=== PATIENT | female | born 1985 | race Caucasian/White ===

== ENCOUNTER 2016-06-05 17:03 | Emergency (ER) | payer MEDICARE, MEDICAID ==
[~2016-06-05] VITALS: Ht 160 cm; Wt 165.5 kg
[~2016-06-05 17:03] MED LIST: ABILIFY 10MG TA10 MG PO; ABILIFY20 MG PO; ADIPEX-P37.5 MG PO; ALBUTEROL0.09 MG/A1 IH; ALBUTEROL0.83 MG/ML IH; AMITRIPTYLINE H25 M1 PO; AMOXICILLIN 50500 MG PO; ATARAX; ATARAX 25MG25 MG/TAB PO; BUSPAR DIVIDOSE15 MG PO; BUSPIRONE; CELEXA 20MG20 MG/TAB PO; CEPHALEXIN500 M1 PO; COZAAR100 MG PO; DESYREL 100MG100 MG PO; DESYREL 50MG50 MG PO; DESYREL DIVIDO150 M1 PO; DOXYCYCLINE 10100 MG PO; FIORICET 325 MG1 TA1 PO; FLEXERIL 1010 MG/TAB PO; FLEXERIL10 MG PO; FLONASEALLERGY NS; GEODON60 MG PO; GLUCOPHAGE500 MG/TAB PO; IMITREX 25MG TA25 MG PO; INDERAL 20MG20 MG PO; KLONOPIN 0.5MG0.5 MG PO; KLONOPIN 1MG1 MG PO; LAMICTAL; LAMICTAL 100MG100 MG PO; LAMICTAL 25MG T25 MG PO; LAMICTAL ODT200 MG TL; LAMICTAL200 MG PO; LAMOTRIGINE; LEVAQUIN 750MG750 M1 PO; LORTAB 5/500 501 TAB PO; LORTAB 7.5/5001 TAB PO; MAXALT MLT5 MG PO; MAXALT5 MG PO; MIRALAX 255 GM255 GM PO; MOTRIN 800800 MG/TAB PO; NAPROSYN500 MG PO; NAPROXEN ER500 MG PO; NEURONTIN800 MG/TAB PO; NO HOME MEDICATIONS; NORCO 325 MG-51 TAB; NORCO 325 MG-51 TAB PO; NORCO 325 MG-7.1 TAB PO; PAMELOR 25MG25 MG PO; PAMELOR PO; PEPCID 20MG TAB20 MG; PERCOCET 325 MG1 TA2 PO; PERCOCET 5/321 UDTAB PO; PHENERGAN 25 TA25 MG PO; PHENTRAMINE; PREDNISONE 5MG5 MG PO; PREDNISONE10 MG PO; PREDNISONE20 MG PO; PRINIVIL10 MG PO; PRINZIDE 12.5 M1 TA1 PO; PRINZIDE 12.5 M1 TAB PO; PROMETHAZINE12.5 M5 PO; PROVENTIL0.09 MG/A1 IH; RANITIDINE 7575 MG PO; REGLAN 10MG10 MG/TAB PO; RELION VEN0.09 MG/Ac IH; RELPAX 40MG TAB40 MG PO; ROBAXIN 75750 MG/TAB PO; SINEQUAN 1010 MG/CAP PO; TAMIFLU75 MG PO; TRAZADONE HYDR100 MG PO; TRAZODONE HCL100 MG PO; TRIAMCINOLONE0.1% TP; ULTRAM 50MG TAB50 MG PO; ULTRAM50 MG PO; VALERIAN ROOT; VENTOLIN0.09 MG IH; VICODIN 5/5001 UDTAB PO; VYVANSE30 MG PO; VYVANSE40 MG PO; VYVANSE50 MG PO; WELLBUTRIN SR200 MG PO; ZADITOR 5 ML5 ML OP; ZANAFLEX 4MG TAB4 MG PO; ZANAFLEX2 MG PO; ZITHROMAX 250M250 MG PO; ZITHROMAX Z PA250 MG PO; ZOFRAN 4MG T4 MG/TAB PO; ZOFRAN ODT4 MG PO; ZOFRAN ODT8 MG PO; ZOFRAN8 MG PO; ZOLOFT 100MG100 MG PO; [UNRECOGNIZED DRUG - OTHER]; [UNRECOGNIZED DRUG - OTHER]
[2016-06-05 17:20] VITALS: BP 132/92; TEMP 99
[2016-06-05] MEDS ORDERED: COMPAZINE 110 MG/TAB PO (19:03)
[2016-06-05 19:31] VITALS: PULSE 80
[2016-06-27] MEDS ORDERED: VITAMIN D32000 IU PO (10:00)
[2016-06-27] MEDS ORDERED: PRENATAL PO (10:00)
[2016-07-25] MEDS ORDERED: RESTORIL 1515 MG/CAP PO (10:31)
[2017-01-23] MEDS ORDERED: PRILOSEC10 MG (13:32)
[2017-01-23] MEDS ORDERED: MULTIPLE VITAMI1 CAP PO (13:34)
== END 2016-06-05 19:32 | disposition home or self-care (01) ==
LOC: COL.ER 17:03
DX: G43.909 Migraine, unspecified, not intractable, without status migrainosus (principal)
CPT/HCPCS: J1200; J1885; J2270; J2550; J7030

== ENCOUNTER 2016-06-06 19:32 | Emergency (ER) | payer MEDICARE, MEDICAID ==
[~2016-06-06] VITALS: Ht 160 cm; Wt 165.5 kg
[~2016-06-06 19:32] MED LIST changes: +COMPAZINE 110 MG/TAB PO
[2016-06-06 19:40] VITALS: BP 148/83; PULSE 91; TEMP 99
[2016-06-27] MEDS ORDERED: VITAMIN D32000 IU PO (10:00)
[2016-06-27] MEDS ORDERED: PRENATAL PO (10:00)
[2016-07-25] MEDS ORDERED: RESTORIL 1515 MG/CAP PO (10:31)
[2017-01-23] MEDS ORDERED: PRILOSEC10 MG (13:32)
[2017-01-23] MEDS ORDERED: MULTIPLE VITAMI1 CAP PO (13:34)
== END 2016-06-06 21:18 | disposition home or self-care (01) ==
LOC: COL.ER 19:32
DX: R51 Headache (principal); I10 Essential (primary) hypertension; Z87.891 Personal history of nicotine dependence; R11.0 Nausea
CPT/HCPCS: J1170; J1885; J2550

== ENCOUNTER 2016-06-17 17:27 | Emergency (ER) | payer MEDICARE, MEDICAID ==
[~2016-06-17] VITALS: Ht 160 cm; Wt 165.5 kg
[2016-06-17 17:37] VITALS: BP 139/75; TEMP 98.3
[2016-06-17] MEDS ORDERED: MULTI VITAMINS1 TAB PO (17:42)
[2016-06-17 20:14] VITALS: PULSE 72
[2016-06-27] MEDS ORDERED: PRENATAL PO (10:00)
[2016-06-27] MEDS ORDERED: VITAMIN D32000 IU PO (10:00)
[2016-07-25] MEDS ORDERED: RESTORIL 1515 MG/CAP PO (10:31)
[2017-01-23] MEDS ORDERED: PRILOSEC10 MG (13:32)
[2017-01-23] MEDS ORDERED: MULTIPLE VITAMI1 CAP PO (13:34)
== END 2016-06-17 20:15 | disposition home or self-care (01) ==
LOC: COL.ER 17:27
DX: G43.909 Migraine, unspecified, not intractable, without status migrainosus (principal)
CPT/HCPCS: J1200; J1885; J2060; J2550

== ENCOUNTER → 2016-06-27 | Outpatient (CLI) | payer MEDICARE, MEDICAID ==
[~2016-06-27] VITALS: Ht 160 cm; Wt 164.0 kg
[~2016-06-27] MED LIST changes: +ABILIFY5 MG PO; +MASON NATURAL2000 IU PO; +MULTI VITAMINS1 TAB PO; +MULTIPLE VITAMI1 CAP PO; +NAPROXEN 3375 MG/TAB PO; +NEURONTIN300 MG/CAP PO; +POLYMYXIN B/TRIMETH OU; +PRENATAL PO; +PRILOSEC10 MG; +PROAIR HFA0.09 MG/AC IH; +RESTORIL 1515 MG/CAP PO; +VITAMIN D32000 IU PO; +VYVANSE60 MG PO
[2016-06-27 10:01] VITALS: BP 118/74; PULSE 100
[2016-06-27 10:28] VITALS: BP 118/74; PULSE 100
== END ==
LOC: LIGHT 10:00
DX: E16.1 Other hypoglycemia (principal); E66.01 Morbid (severe) obesity due to excess calories; Z68.44 Body mass index [BMI] 60.0-69.9, adult; E78.4 Other hyperlipidemia; J45.998 Other asthma; M21.372 Foot drop, left foot

== ENCOUNTER → 2016-07-11 | Outpatient (CLI) | payer MEDICARE, MEDICAID | LOC: BHSO 14:28 | DX: F31.81 Bipolar II disorder (principal) ==

== ENCOUNTER 2016-07-12 17:19 | Emergency (ER) | payer MEDICARE, MEDICAID ==
[~2016-07-12] VITALS: Ht 160 cm; Wt 163.6 kg
[~2016-07-12 17:19] MED LIST changes: -ABILIFY5 MG PO; -MASON NATURAL2000 IU PO; -MULTIPLE VITAMI1 CAP PO; -NAPROXEN 3375 MG/TAB PO; -NEURONTIN300 MG/CAP PO; -POLYMYXIN B/TRIMETH OU; -PRILOSEC10 MG; -PROAIR HFA0.09 MG/AC IH; -RESTORIL 1515 MG/CAP PO; -VYVANSE60 MG PO
[2016-07-12 17:30] VITALS: BP 130/86; TEMP 99.2
[2016-07-12 20:38] VITALS: PULSE 85
[2016-07-25] MEDS ORDERED: RESTORIL 1515 MG/CAP PO (10:31)
[2017-01-23] MEDS ORDERED: PRILOSEC10 MG (13:32)
[2017-01-23] MEDS ORDERED: MULTIPLE VITAMI1 CAP PO (13:34)
== END 2016-07-12 20:40 | disposition home or self-care (01) ==
LOC: COL.ER 17:19
DX: G43.909 Migraine, unspecified, not intractable, without status migrainosus (principal)
CPT/HCPCS: J1885; J2550

== ENCOUNTER 2016-07-23 09:39 | Emergency (ER) | payer MEDICARE, MEDICAID ==
[~2016-07-23] VITALS: Ht 160 cm; Wt 163.6 kg
[2016-07-23 09:43] VITALS: TEMP 98.5
[2016-07-23 11:22] VITALS: BP 136/92; PULSE 78
[2016-07-25] MEDS ORDERED: RESTORIL 1515 MG/CAP PO (10:31)
[2017-01-23] MEDS ORDERED: PRILOSEC10 MG (13:32)
[2017-01-23] MEDS ORDERED: MULTIPLE VITAMI1 CAP PO (13:34)
== END 2016-07-23 11:23 | disposition home or self-care (01) ==
LOC: COL.ER 09:39
DX: G43.909 Migraine, unspecified, not intractable, without status migrainosus (principal)
CPT/HCPCS: J1885; J2550

== ENCOUNTER → 2016-07-25 | Outpatient (CLI) | payer MEDICARE, MEDICAID ==
[~2016-07-25] VITALS: Ht 160 cm; Wt 165.1 kg
[~2016-07-25] MED LIST changes: +ABILIFY5 MG PO; +MASON NATURAL2000 IU PO; +MULTIPLE VITAMI1 CAP PO; +NAPROXEN 3375 MG/TAB PO; +NEURONTIN300 MG/CAP PO; +POLYMYXIN B/TRIMETH OU; +PRILOSEC10 MG; +PROAIR HFA0.09 MG/AC IH; +RESTORIL 1515 MG/CAP PO; +VYVANSE60 MG PO
[2016-07-25 10:32] VITALS: BP 170/75; PULSE 101
[2016-07-25 11:00] VITALS: BP 170/75; PULSE 101
== END ==
LOC: LIGHT 10:30
DX: E16.1 Other hypoglycemia (principal); E78.4 Other hyperlipidemia; J45.998 Other asthma; E66.01 Morbid (severe) obesity due to excess calories; Z68.44 Body mass index [BMI] 60.0-69.9, adult

== ENCOUNTER → 2016-08-06 | Outpatient (CLI) | payer MEDICARE, MEDICAID | LOC: BHSO 10:14 | DX: F31.81 Bipolar II disorder (principal) ==

== ENCOUNTER 2016-08-11 10:30 | Emergency (ER) | payer MEDICARE, MEDICAID ==
[~2016-08-11] VITALS: Ht 160 cm; Wt 163.6 kg
[~2016-08-11 10:30] MED LIST changes: -ABILIFY5 MG PO; -MASON NATURAL2000 IU PO; -MULTIPLE VITAMI1 CAP PO; -NAPROXEN 3375 MG/TAB PO; -NEURONTIN300 MG/CAP PO; -POLYMYXIN B/TRIMETH OU; -PRILOSEC10 MG; -PROAIR HFA0.09 MG/AC IH; -VYVANSE60 MG PO
[2016-08-11 10:35] VITALS: BP 113/88; PULSE 95; TEMP 97.5
[2016-08-11] MEDS ORDERED: DESYREL DIVIDO150 M1 PO (10:41)
[2016-08-11] MEDS ORDERED: KLONOPIN 0.5MG0.5 MG PO (10:41)
[2016-08-11] MEDS ORDERED: POLYMYXIN B/TRIMETH OU (12:17)
[2017-01-23] MEDS ORDERED: PRILOSEC10 MG (13:32)
[2017-01-23] MEDS ORDERED: MULTIPLE VITAMI1 CAP PO (13:34)
== END 2016-08-11 12:16 | disposition home or self-care (01) ==
LOC: COL.ER 10:30
DX: H02.89 Other specified disorders of eyelid (principal)

== ENCOUNTER 2016-08-14 09:15 | Outpatient (RCR) | payer MEDICARE, MEDICAID ==
[~2016-08-14 09:15] MED LIST changes: +POLYMYXIN B/TRIMETH OU
[2016-08-20] MEDS ORDERED: PREDNISONE20 MG PO (04:43)
[2016-08-20] MEDS ORDERED: DOXYCYCLINE 10100 MG PO (04:43)
[2016-09-10] MEDS ORDERED: VYVANSE60 MG PO (18:07)
[2016-09-10] MEDS ORDERED: ABILIFY5 MG PO (18:08)
[2016-09-10] MEDS ORDERED: NEURONTIN300 MG/CAP PO (18:10)
[2016-09-10] MEDS ORDERED: PROAIR HFA0.09 MG/AC IH (20:31)
[2016-09-10] MEDS ORDERED: PREDNISONE20 MG PO (20:31)
[2016-09-26] MEDS ORDERED: NAPROXEN 3375 MG/TAB PO (20:33)
[2017-01-23] MEDS ORDERED: PRILOSEC10 MG (13:32)
[2017-01-23] MEDS ORDERED: MULTIPLE VITAMI1 CAP PO (13:34)
== END 2016-10-08 | disposition home or self-care (01) ==
LOC: WSPT
DX: M21.372 Foot drop, left foot (principal)
CPT/HCPCS: G8978-GP; G8979-GP

== ENCOUNTER 2016-08-20 03:52 | Emergency (ER) | payer MEDICARE, MEDICAID ==
[~2016-08-20] VITALS: Ht 160 cm; Wt 163.6 kg
[2016-08-20 03:54] VITALS: TEMP 98.2
[2016-08-20] MEDS ORDERED: PREDNISONE20 MG PO (04:43)
[2016-08-20] MEDS ORDERED: DOXYCYCLINE 10100 MG PO (04:43)
[2016-08-20 04:58] VITALS: BP 128/74; PULSE 94
[2017-01-23] MEDS ORDERED: PRILOSEC10 MG (13:32)
[2017-01-23] MEDS ORDERED: MULTIPLE VITAMI1 CAP PO (13:34)
== END 2016-08-20 04:58 | disposition home or self-care (01) ==
LOC: COL.ER 03:52
DX: G43.909 Migraine, unspecified, not intractable, without status migrainosus (principal); J40 Bronchitis, not specified as acute or chronic; Z87.891 Personal history of nicotine dependence
CPT/HCPCS: J1170; J1885; J2550; J7512

== ENCOUNTER → 2016-08-22 | Outpatient (CLI) | payer MEDICARE, MEDICAID ==
[~2016-08-22] VITALS: Ht 160 cm; Wt 167.4 kg
[~2016-08-22] MED LIST changes: +ABILIFY5 MG PO; +MASON NATURAL2000 IU PO; +MULTIPLE VITAMI1 CAP PO; +NAPROXEN 3375 MG/TAB PO; +NEURONTIN300 MG/CAP PO; +PRILOSEC10 MG; +PROAIR HFA0.09 MG/AC IH; +VYVANSE60 MG PO
[2016-08-22 10:41] VITALS: BP 133/75; PULSE 88
== END ==
LOC: LIGHT 10:35
DX: E16.1 Other hypoglycemia (principal); E66.01 Morbid (severe) obesity due to excess calories; Z68.44 Body mass index [BMI] 60.0-69.9, adult; E78.4 Other hyperlipidemia; J45.998 Other asthma

== ENCOUNTER 2016-09-10 18:01 | Emergency (ER) | payer MEDICARE, MEDICAID ==
[~2016-09-10] VITALS: Ht 160 cm; Wt 163.6 kg
[~2016-09-10 18:01] MED LIST changes: -ABILIFY5 MG PO; -MASON NATURAL2000 IU PO; -MULTIPLE VITAMI1 CAP PO; -NAPROXEN 3375 MG/TAB PO; -NEURONTIN300 MG/CAP PO; -PRILOSEC10 MG; -PROAIR HFA0.09 MG/AC IH; -VYVANSE60 MG PO
[2016-09-10 18:03] VITALS: BP 132/84; TEMP 98.4
[2016-09-10] MEDS ORDERED: VYVANSE60 MG PO (18:07)
[2016-09-10] MEDS ORDERED: ABILIFY5 MG PO (18:08)
[2016-09-10] MEDS ORDERED: NEURONTIN300 MG/CAP PO (18:10)
[2016-09-10] MEDS ORDERED: PREDNISONE20 MG PO (20:31)
[2016-09-10] MEDS ORDERED: PROAIR HFA0.09 MG/AC IH (20:31)
[2016-09-10 20:37] VITALS: PULSE 99
[2017-01-23] MEDS ORDERED: PRILOSEC10 MG (13:32)
[2017-01-23] MEDS ORDERED: MULTIPLE VITAMI1 CAP PO (13:34)
== END 2016-09-10 20:38 | disposition home or self-care (01) ==
LOC: COL.ER 18:01
DX: R06.02 Shortness of breath (principal); M54.9 Dorsalgia, unspecified; J45.909 Unspecified asthma, uncomplicated; Z87.891 Personal history of nicotine dependence; I10 Essential (primary) hypertension
CPT/HCPCS: J7512

== ENCOUNTER 2016-09-11 19:08 | Emergency (ER) | payer MEDICARE, MEDICAID ==
[~2016-09-11] VITALS: Ht 160 cm; Wt 163.6 kg
[~2016-09-11 19:08] MED LIST changes: -MASON NATURAL2000 IU PO; -MULTIPLE VITAMI1 CAP PO; -NAPROXEN 3375 MG/TAB PO; -PRILOSEC10 MG
[2016-09-11 19:14] VITALS: TEMP 99.6
[2016-09-11 22:01] LABS: PH 7 (5-8); URINE APPEARANCE Clear; URINE BACTERIA None Seen /hpf; URINE BILIRUBIN Negative (NEGATIVE); URINE BLOOD Negative (NEGATIVE); URINE COLOR Yellow; URINE GLUCOSE Negative (NEGATIVE); URINE KETONE Negative (NEGATIVE); URINE RBC 0-2 /hpf; URINE UROBILINOGEN Negative (NEGATIVE); URINE WBC 0-2 /hpf
[2016-09-11 23:23] VITALS: BP 117/67; PULSE 86
[2017-01-23] MEDS ORDERED: PRILOSEC10 MG (13:32)
[2017-01-23] MEDS ORDERED: MULTIPLE VITAMI1 CAP PO (13:34)
== END 2016-09-11 23:26 | disposition home or self-care (01) ==
LOC: COL.ER 19:08
PROVIDERS: Nurse Practitioner
DX: M54.6 Pain in thoracic spine (principal); J45.909 Unspecified asthma, uncomplicated; E66.01 Morbid (severe) obesity due to excess calories; Z68.44 Body mass index [BMI] 60.0-69.9, adult
CPT/HCPCS: J1170

== ENCOUNTER → 2016-09-11 | Outpatient (CLI) | payer MEDICARE, MEDICAID ==
[~2016-09-11] MED LIST changes: +ABILIFY5 MG PO; +MASON NATURAL2000 IU PO; +MULTIPLE VITAMI1 CAP PO; +NAPROXEN 3375 MG/TAB PO; +NEURONTIN300 MG/CAP PO; +PRILOSEC10 MG; +PROAIR HFA0.09 MG/AC IH; +VYVANSE60 MG PO
== END ==
LOC: BHSO 13:04
DX: F31.81 Bipolar II disorder (principal)

== ENCOUNTER 2016-09-26 19:10 | Emergency (ER) | payer MEDICARE, MEDICAID ==
[~2016-09-26] VITALS: Ht 160 cm; Wt 168.2 kg
[2016-09-26 19:23] VITALS: BP 146/71; PULSE 91; TEMP 98.7
[2016-09-26 20:14] LABS: PH 5 (5-8); URINE APPEARANCE Hazy; URINE BACTERIA None Seen /hpf; URINE BILIRUBIN Negative (NEGATIVE); URINE BLOOD 1+ (NEGATIVE); URINE COLOR Yellow; URINE GLUCOSE Negative (NEGATIVE); URINE KETONE Negative (NEGATIVE); URINE RBC 0-2 /hpf; URINE UROBILINOGEN Negative (NEGATIVE); URINE WBC 0-2 /hpf
[2016-09-26] MEDS ORDERED: NAPROXEN 3375 MG/TAB PO (20:33)
[2017-01-23] MEDS ORDERED: PRILOSEC10 MG (13:32)
[2017-01-23] MEDS ORDERED: MULTIPLE VITAMI1 CAP PO (13:34)
== END 2016-09-26 20:54 | disposition home or self-care (01) ==
LOC: COL.ER 19:10
PROVIDERS: Emergency Medicine
DX: M54.5 Low back pain (principal); E66.9 Obesity, unspecified; Z68.44 Body mass index [BMI] 60.0-69.9, adult; M54.6 Pain in thoracic spine

== ENCOUNTER 2016-10-08 18:51 | Emergency (ER) | payer MEDICARE, MEDICAID ==
[~2016-10-08] VITALS: Ht 160 cm; Wt 168.2 kg
[~2016-10-08 18:51] MED LIST changes: +NAPROXEN 3375 MG/TAB PO
[2016-10-08 18:53] VITALS: BP 138/83; TEMP 98.3
[2016-10-08 21:41] VITALS: PULSE 82
[2017-01-23] MEDS ORDERED: PRILOSEC10 MG (13:32)
[2017-01-23] MEDS ORDERED: MULTIPLE VITAMI1 CAP PO (13:34)
== END 2016-10-08 21:42 | disposition home or self-care (01) ==
LOC: COL.ER 18:51
DX: G43.909 Migraine, unspecified, not intractable, without status migrainosus (principal); F31.9 Bipolar disorder, unspecified
CPT/HCPCS: J1885; J2550

== ENCOUNTER 2016-11-02 06:44 | Emergency (ER) | payer MEDICARE, MEDICAID ==
[~2016-11-02] VITALS: Ht 160 cm; Wt 170.5 kg
[2016-11-02 06:47] VITALS: BP 131/82; TEMP 98.4
[2016-11-02 08:50] VITALS: PULSE 92
[2017-01-23] MEDS ORDERED: PRILOSEC10 MG (13:32)
[2017-01-23] MEDS ORDERED: MULTIPLE VITAMI1 CAP PO (13:34)
== END 2016-11-02 08:50 | disposition home or self-care (01) ==
LOC: COL.ER 06:44
DX: G43.909 Migraine, unspecified, not intractable, without status migrainosus (principal); J45.901 Unspecified asthma with (acute) exacerbation; F32.9 Major depressive disorder, single episode, unspecified
CPT/HCPCS: J1170; J1885; J2550

== ENCOUNTER → 2016-11-14 | Outpatient (CLI) | payer MEDICARE, MEDICAID ==
[~2016-11-14] VITALS: Ht 160 cm; Wt 172.4 kg
[~2016-11-14] MED LIST changes: +MASON NATURAL2000 IU PO; +MULTIPLE VITAMI1 CAP PO; +PRILOSEC10 MG
[2016-11-14 10:53] VITALS: BP 126/60; PULSE 90
== END ==
LOC: LIGHT 09-26 12:12
DX: E16.1 Other hypoglycemia (principal); E66.01 Morbid (severe) obesity due to excess calories; Z68.44 Body mass index [BMI] 60.0-69.9, adult; Z71.3 Dietary counseling and surveillance; E78.5 Hyperlipidemia, unspecified; J45.909 Unspecified asthma, uncomplicated

== ENCOUNTER → 2016-11-20 | Outpatient (CLI) | payer MEDICARE, MEDICAID | LOC: BHSO 08:40 | DX: F31.81 Bipolar II disorder (principal) ==

== ENCOUNTER 2016-11-23 20:05 | Emergency (ER) | payer MEDICARE, MEDICAID ==
[~2016-11-23] VITALS: Ht 160 cm; Wt 172.7 kg
[~2016-11-23 20:05] MED LIST changes: -MASON NATURAL2000 IU PO; -MULTIPLE VITAMI1 CAP PO; -PRILOSEC10 MG
[2016-11-23 20:08] VITALS: BP 130/75; TEMP 98.7
[2016-11-23] MEDS ORDERED: MASON NATURAL2000 IU PO (20:30)
[2016-11-23 20:49] VITALS: PULSE 90
[2017-01-23] MEDS ORDERED: PRILOSEC10 MG (13:32)
[2017-01-23] MEDS ORDERED: MULTIPLE VITAMI1 CAP PO (13:34)
== END 2016-11-23 20:50 | disposition home or self-care (01) ==
LOC: COL.ER 20:05
DX: G43.909 Migraine, unspecified, not intractable, without status migrainosus (principal); F32.9 Major depressive disorder, single episode, unspecified; F41.9 Anxiety disorder, unspecified; Z87.891 Personal history of nicotine dependence
CPT/HCPCS: J1200; J1885; J2550

== ENCOUNTER → 2016-12-12 | Outpatient (CLI) | payer MEDICARE, MEDICAID ==
[~2016-12-12] VITALS: Ht 160 cm; Wt 174.2 kg
[~2016-12-12] MED LIST changes: +MASON NATURAL2000 IU PO; +MULTIPLE VITAMI1 CAP PO; +PRILOSEC10 MG
[2016-12-12 12:12] VITALS: BP 129/58; PULSE 83
== END ==
LOC: LIGHT 10:28
DX: E16.1 Other hypoglycemia (principal); E66.01 Morbid (severe) obesity due to excess calories; Z68.44 Body mass index [BMI] 60.0-69.9, adult; Z71.3 Dietary counseling and surveillance; E78.5 Hyperlipidemia, unspecified; J45.909 Unspecified asthma, uncomplicated

== ENCOUNTER 2016-12-17 15:40 | Emergency (ER) | payer MEDICARE, MEDICAID ==
[~2016-12-17] VITALS: Ht 160 cm; Wt 172.7 kg
[~2016-12-17 15:40] MED LIST changes: -MULTIPLE VITAMI1 CAP PO; -PRILOSEC10 MG
[2016-12-17 15:42] VITALS: BP 161/79; PULSE 100; TEMP 98.7
[2016-12-17] MEDS ORDERED: ULTRAM 50MG TAB50 MG PO (16:11)
[2017-01-23] MEDS ORDERED: PRILOSEC10 MG (13:32)
[2017-01-23] MEDS ORDERED: MULTIPLE VITAMI1 CAP PO (13:34)
== END 2016-12-17 16:24 | disposition home or self-care (01) ==
LOC: COL.ER 15:40
DX: M65.842 Other synovitis and tenosynovitis, left hand (principal); G43.909 Migraine, unspecified, not intractable, without status migrainosus; F32.9 Major depressive disorder, single episode, unspecified; F41.9 Anxiety disorder, unspecified

== ENCOUNTER → 2017-01-23 | Outpatient (CLI) | payer MEDICARE, MEDICAID ==
[~2017-01-23] VITALS: Ht 160 cm; Wt 158.1 kg
[~2017-01-23] MED LIST changes: +MULTIPLE VITAMI1 CAP PO; +PRILOSEC10 MG
[2017-01-23 13:35] VITALS: BP 110/80; PULSE 72
== END ==
LOC: LIGHT 10:36
DX: E16.1 Other hypoglycemia (principal); E78.5 Hyperlipidemia, unspecified; J45.909 Unspecified asthma, uncomplicated; E66.01 Morbid (severe) obesity due to excess calories; Z68.44 Body mass index [BMI] 60.0-69.9, adult; Z98.84 Bariatric surgery status; Z90.49 Acquired absence of other specified parts of digestive tract

== ENCOUNTER → 2017-01-27 | Outpatient (CLI) | payer MEDICARE, MEDICAID | LOC: BHSO 13:02 | DX: F31.81 Bipolar II disorder (principal) ==

== ENCOUNTER 2017-02-12 23:51 | Emergency (ER) | payer MEDICARE, MEDICAID ==
[~2017-02-12] VITALS: Ht 160 cm; Wt 153.6 kg
[2017-02-12 23:57] VITALS: BP 131/65; TEMP 98
[2017-02-13] MEDS ORDERED: PREDNISONE20 MG PO (01:09)
[2017-02-13 01:25] VITALS: PULSE 89
== END 2017-02-13 01:26 | disposition home or self-care (01) ==
LOC: COL.ER 23:51
DX: L50.9 Urticaria, unspecified (principal); G43.909 Migraine, unspecified, not intractable, without status migrainosus; J45.909 Unspecified asthma, uncomplicated; F32.9 Major depressive disorder, single episode, unspecified; F41.9 Anxiety disorder, unspecified; F31.9 Bipolar disorder, unspecified; Z87.891 Personal history of nicotine dependence
CPT/HCPCS: J7512

== ENCOUNTER 2017-02-14 00:55 | Emergency (ER) | payer MEDICARE, MEDICAID ==
[~2017-02-14] VITALS: Ht 160 cm; Wt 153.6 kg
[2017-02-14 00:58] VITALS: BP 139/77; TEMP 98.9
[2017-02-14 02:07] VITALS: PULSE 76
== END 2017-02-14 02:07 | disposition home or self-care (01) ==
LOC: COL.ER 00:55
DX: L50.9 Urticaria, unspecified (principal); F31.9 Bipolar disorder, unspecified; F41.9 Anxiety disorder, unspecified; J45.909 Unspecified asthma, uncomplicated; Z87.891 Personal history of nicotine dependence; Z98.84 Bariatric surgery status; Z90.49 Acquired absence of other specified parts of digestive tract
CPT/HCPCS: J1200

== ENCOUNTER 2017-03-05 18:14 | Emergency (ER) | payer MEDICARE, MEDICAID ==
[~2017-03-05] VITALS: Ht 160 cm; Wt 147.7 kg
[~2017-03-05 18:14] MED LIST changes: -PRILOSEC10 MG; +PRILOSEC10 MG PO
[2017-03-05 18:18] VITALS: BP 134/83; PULSE 69; TEMP 98
== END 2017-03-05 19:38 | disposition home or self-care (01) ==
LOC: COL.ER 18:14
DX: G43.909 Migraine, unspecified, not intractable, without status migrainosus (principal); F31.9 Bipolar disorder, unspecified; F41.9 Anxiety disorder, unspecified; Z87.891 Personal history of nicotine dependence; Z98.84 Bariatric surgery status
CPT/HCPCS: J1200; J1885; J2765

== ENCOUNTER → 2017-03-06 | Outpatient (CLI) | payer MEDICARE, MEDICAID ==
[~2017-03-06] VITALS: Ht 160 cm; Wt 145.8 kg
[2017-03-06 15:38] VITALS: BP 130/60; PULSE 72
== END ==
LOC: LIGHT 12:53
DX: E16.1 Other hypoglycemia (principal); E66.01 Morbid (severe) obesity due to excess calories; Z68.43 Body mass index [BMI] 50.0-59.9, adult; Z71.3 Dietary counseling and surveillance; E78.5 Hyperlipidemia, unspecified; J45.909 Unspecified asthma, uncomplicated

== ENCOUNTER → 2017-04-09 | Outpatient (CLI) | payer MEDICARE, MEDICAID | LOC: BHSO 10:33 | DX: F31.81 Bipolar II disorder (principal) ==

== ENCOUNTER → 2017-04-10 | Outpatient (CLI) | payer MEDICARE, MEDICAID ==
[~2017-04-10] VITALS: Ht 160 cm; Wt 137.9 kg
[2017-04-10 15:25] VITALS: BP 110/80; PULSE 80
== END ==
LOC: LIGHT 13:51
DX: E16.1 Other hypoglycemia (principal); E66.01 Morbid (severe) obesity due to excess calories; Z68.43 Body mass index [BMI] 50.0-59.9, adult; Z71.3 Dietary counseling and surveillance; E78.5 Hyperlipidemia, unspecified; J45.909 Unspecified asthma, uncomplicated

== ENCOUNTER 2017-04-13 18:20 | Emergency (ER) | payer MEDICARE, MEDICAID ==
[~2017-04-13] VITALS: Ht 160 cm; Wt 136.4 kg
[2017-04-13 18:24] VITALS: BP 133/92; TEMP 98.3
[2017-04-13 20:15] VITALS: PULSE 78
== END 2017-04-13 20:15 | disposition home or self-care (01) ==
LOC: COL.ER 18:20
DX: G44.209 Tension-type headache, unspecified, not intractable (principal); J45.909 Unspecified asthma, uncomplicated; F31.9 Bipolar disorder, unspecified; F41.9 Anxiety disorder, unspecified; Z87.891 Personal history of nicotine dependence; Z90.49 Acquired absence of other specified parts of digestive tract; Z98.84 Bariatric surgery status
CPT/HCPCS: J1885; J2360

== ENCOUNTER 2017-04-29 14:00 | Outpatient (RCR) | payer MEDICARE, MEDICAID ==
[2017-05-07] MEDS ORDERED: NORCO 325 MG-51 TAB PO (06:33)
[2017-05-07] MEDS ORDERED: FLEXERIL 1010 MG/TAB PO (06:33)
[2017-05-15] MEDS ORDERED: VITAMIN D31000 I1 PO (10:19)
[2017-05-15] MEDS ORDERED: NEXPLANON68 MG ID (10:20)
== END 2017-05-22 16:51 | disposition home or self-care (01) ==
LOC: WSPT 14:00
DX: M19.072 Primary osteoarthritis, left ankle and foot (principal); M21.372 Foot drop, left foot; Z98.84 Bariatric surgery status
CPT/HCPCS: G8978-GP; G8979-GP; G8980-GP

== ENCOUNTER 2017-05-07 05:20 | Emergency (ER) | payer MEDICARE, MEDICAID ==
[~2017-05-07] VITALS: Ht 160 cm; Wt 133.2 kg
[2017-05-07 05:33] VITALS: BP 110/57; TEMP 97.8
[2017-05-07] MEDS ORDERED: FLEXERIL 1010 MG/TAB PO (06:33)
[2017-05-07] MEDS ORDERED: NORCO 325 MG-51 TAB PO (06:33)
[2017-05-07 07:40] VITALS: PULSE 65
== END 2017-05-07 07:44 | disposition home or self-care (01) ==
LOC: COL.ER 05:20
DX: S16.1XXA Strain of muscle, fascia and tendon at neck level, initial encounter (principal); F31.9 Bipolar disorder, unspecified; E66.9 Obesity, unspecified; Z90.49 Acquired absence of other specified parts of digestive tract; X58.XXXA Exposure to other specified factors, initial encounter
CPT/HCPCS: J1170

== ENCOUNTER → 2017-05-15 | Outpatient (CLI) | payer MEDICARE, MEDICAID ==
[~2017-05-15] VITALS: Ht 160 cm; Wt 132.0 kg
[~2017-05-15] MED LIST changes: +NEXPLANON68 MG ID; +VITAMIN D31000 I1 PO
[2017-05-15 10:20] VITALS: BP 100/58; PULSE 80
== END ==
LOC: LIGHT 10:10
DX: E16.1 Other hypoglycemia (principal); E66.01 Morbid (severe) obesity due to excess calories; Z68.43 Body mass index [BMI] 50.0-59.9, adult; Z71.3 Dietary counseling and surveillance; E78.5 Hyperlipidemia, unspecified; J45.909 Unspecified asthma, uncomplicated

== ENCOUNTER 2017-05-18 12:15 | Emergency (ER) | payer MEDICARE, MEDICAID ==
[~2017-05-18] VITALS: Ht 160 cm; Wt 132.3 kg
[2017-05-18 12:24] VITALS: BP 119/56; PULSE 72; TEMP 98.5
== END 2017-05-18 15:25 | disposition left against medical advice (07) ==
LOC: COL.ER 12:15
DX: M75.101 Unspecified rotator cuff tear or rupture of right shoulder, not specified as traumatic (principal)

== ENCOUNTER 2017-05-28 18:52 | Emergency (ER) | payer MEDICARE, MEDICAID ==
[~2017-05-28] VITALS: Ht 160 cm; Wt 127.7 kg
[2017-05-28 19:01] VITALS: BP 132/71; PULSE 88; TEMP 98.4
[2017-05-28] MEDS ORDERED: DESYREL DIVIDO150 M1 PO (20:19)
[2017-05-28] MEDS ORDERED: PRILOSEC 20MG20 MG PO (20:19)
== END 2017-05-28 21:01 | disposition home or self-care (01) ==
LOC: COL.ER 18:52
DX: G43.909 Migraine, unspecified, not intractable, without status migrainosus (principal); J45.909 Unspecified asthma, uncomplicated; F31.9 Bipolar disorder, unspecified; F41.9 Anxiety disorder, unspecified; Z87.891 Personal history of nicotine dependence
CPT/HCPCS: J1200; J1885; J2765

== ENCOUNTER 2017-06-12 23:17 | Emergency (ER) | payer MEDICARE, MEDICAID ==
[~2017-06-12] VITALS: Ht 152.4 cm; Wt 121.8 kg
[~2017-06-12 23:17] MED LIST changes: +ALBUTEROL1.25 MG/3 IH; +PRILOSEC 20MG20 MG PO; +TAMIFLU 75MG75 MG PO
[2017-06-12 23:21] VITALS: BP 123/73; PULSE 70; TEMP 98.1
[2017-06-13] MEDS ORDERED: PREDNISONE20 MG PO (00:27)
[2017-06-13] MEDS ORDERED: TESSALON P100 MG/CAP PO (00:27)
== END 2017-06-13 00:34 | disposition home or self-care (01) ==
LOC: COL.ER 23:17
DX: R05 Cough (principal); F31.9 Bipolar disorder, unspecified; F90.9 Attention-deficit hyperactivity disorder, unspecified type; Z87.891 Personal history of nicotine dependence; Z90.49 Acquired absence of other specified parts of digestive tract; Z98.890 Other specified postprocedural states; Z98.84 Bariatric surgery status
CPT/HCPCS: J7512

== ENCOUNTER 2017-06-20 19:47 | Emergency (ER) | payer MEDICARE, MEDICAID ==
[~2017-06-20] VITALS: Ht 160 cm; Wt 125.5 kg
[~2017-06-20 19:47] MED LIST changes: +TESSALON P100 MG/CAP PO
[2017-06-20 19:49] VITALS: BP 132/83; TEMP 99.1
[2017-06-20] MEDS ORDERED: AMOXICILLIN 25250 MG PO (19:54)
[2017-06-20] MEDS ORDERED: ZESTRIL 10MG10 MG PO (19:54)
[2017-06-20] MEDS ORDERED: PREDNISONE20 MG PO (20:55)
[2017-06-20 22:28] VITALS: PULSE 109
== END 2017-06-20 22:29 | disposition home or self-care (01) ==
LOC: COL.ER 19:47
DX: J40 Bronchitis, not specified as acute or chronic (principal)

== ENCOUNTER → 2017-06-26 | Outpatient (CLI) | payer MEDICARE, MEDICAID ==
[~2017-06-26] VITALS: Ht 160 cm; Wt 122.7 kg
[~2017-06-26] MED LIST changes: +AMOXICILLIN 25250 MG PO; +BIOTIN800 MCG; +ZESTRIL 10MG10 MG PO
[2017-06-26 13:52] VITALS: BP 136/96; PULSE 84
== END ==
LOC: LIGHT 11:25
DX: E16.1 Other hypoglycemia (principal); E66.01 Morbid (severe) obesity due to excess calories; Z68.42 Body mass index [BMI] 45.0-49.9, adult; Z71.3 Dietary counseling and surveillance; E78.5 Hyperlipidemia, unspecified; J45.909 Unspecified asthma, uncomplicated
CPT/HCPCS: G0463

== ENCOUNTER 2017-07-21 18:28 | Emergency (ER) | payer MEDICARE, MEDICAID ==
[~2017-07-21] VITALS: Ht 160 cm; Wt 121.8 kg
[2017-07-21 18:35] VITALS: BP 135/67; PULSE 67; TEMP 97
[2017-07-21 19:31] LABS: COLLECTION METHOD CLEAN CATCH
[2017-07-21 19:44] LABS: PH 5 (5-8); URINE APPEARANCE Hazy; URINE BILIRUBIN Negative (NEGATIVE); URINE BLOOD Negative (NEGATIVE); URINE COLOR Yellow; URINE GLUCOSE Negative (NEGATIVE); URINE KETONE 1+ (NEGATIVE); URINE LEUKOCYTE ESTERASE Negative (NEGATIVE); URINE NITRATE Negative (NEGATIVE); URINE PROTEIN(semi-quant) 2+ (NEGATIVE)
[2017-07-21 19:45] LABS: MUCOUS Present /lpf; SQUAMOUS EPITHELIAL 20-50 /hpf
[2017-07-21 19:47] LABS: URINE RBC None Seen /hpf
[2017-07-21] MEDS ORDERED: ULTRAM 50MG TAB50 MG PO (20:03)
[2017-07-21] MEDS ORDERED: FLONASEALLERGY NS (20:04)
[2017-07-21] MEDS ORDERED: FLEXERIL 1010 MG/TAB PO (20:12)
== END 2017-07-21 20:23 | disposition home or self-care (01) ==
LOC: COL.ER 18:28
PROVIDERS: Nurse Practitioner
DX: M54.6 Pain in thoracic spine (principal); J45.909 Unspecified asthma, uncomplicated; F31.9 Bipolar disorder, unspecified; F41.9 Anxiety disorder, unspecified; Z87.891 Personal history of nicotine dependence; Z90.49 Acquired absence of other specified parts of digestive tract; Z98.84 Bariatric surgery status; Z98.890 Other specified postprocedural states; Z79.51 Long term (current) use of inhaled steroids
CPT/HCPCS: J2360

== ENCOUNTER → 2017-07-24 | Outpatient (CLI) | payer MEDICARE, MEDICAID | LOC: BHSO 09:34 | DX: F31.81 Bipolar II disorder (principal) | CPT/HCPCS: G0463 ==

== ENCOUNTER → 2017-07-24 | Outpatient (CLI) | payer MEDICARE, MEDICAID ==
[~2017-07-24] VITALS: Ht 160 cm; Wt 121.1 kg
[2017-07-24 14:37] VITALS: BP 106/70; PULSE 92
== END ==
LOC: LIGHT 09:15
DX: E16.1 Other hypoglycemia (principal); E66.01 Morbid (severe) obesity due to excess calories; Z68.42 Body mass index [BMI] 45.0-49.9, adult; Z71.3 Dietary counseling and surveillance; E78.5 Hyperlipidemia, unspecified; J45.909 Unspecified asthma, uncomplicated
CPT/HCPCS: G0463

== ENCOUNTER 2017-08-15 17:17 | Emergency (ER) | payer MEDICARE, MEDICAID ==
[~2017-08-15] VITALS: Ht 160 cm; Wt 121.8 kg
[2017-08-15 17:41] VITALS: BP 148/55; TEMP 97.5
[2017-08-15 19:22] VITALS: PULSE 76
== END 2017-08-15 19:23 | disposition home or self-care (01) ==
LOC: COL.ER 17:17
DX: G43.909 Migraine, unspecified, not intractable, without status migrainosus (principal); J45.909 Unspecified asthma, uncomplicated; F31.9 Bipolar disorder, unspecified; F41.9 Anxiety disorder, unspecified; Z90.49 Acquired absence of other specified parts of digestive tract; Z98.84 Bariatric surgery status; Z98.890 Other specified postprocedural states; Z79.51 Long term (current) use of inhaled steroids
CPT/HCPCS: J2270; J2550

== ENCOUNTER 2017-08-16 18:17 | Emergency (ER) | payer MEDICARE, MEDICAID ==
[~2017-08-16] VITALS: Ht 160 cm; Wt 121.8 kg
[2017-08-16 18:20] VITALS: BP 118/64; TEMP 98.4
[2017-08-16 19:25] VITALS: PULSE 63
== END 2017-08-16 19:28 | disposition home or self-care (01) ==
LOC: COL.ER 18:17
DX: G43.909 Migraine, unspecified, not intractable, without status migrainosus (principal)
CPT/HCPCS: J0595; J2550

== ENCOUNTER → 2017-08-28 | Outpatient (CLI) | payer MEDICARE, MEDICAID ==
[~2017-08-28] VITALS: Ht 160 cm; Wt 119.1 kg
[~2017-08-28] MED LIST changes: +PROVERA 10MG10 MG PO
[2017-08-28 10:02] VITALS: BP 114/76; PULSE 72
== END ==
LOC: LIGHT 09:37
DX: E16.1 Other hypoglycemia (principal); E66.01 Morbid (severe) obesity due to excess calories; Z68.42 Body mass index [BMI] 45.0-49.9, adult; Z71.3 Dietary counseling and surveillance; E78.5 Hyperlipidemia, unspecified; J45.909 Unspecified asthma, uncomplicated
CPT/HCPCS: G0463

== ENCOUNTER 2017-08-31 12:21 | Emergency (ER) | payer MEDICARE, MEDICAID ==
[~2017-08-31] VITALS: Ht 160 cm; Wt 117.3 kg
[2017-08-31 12:24] VITALS: BP 116/61; TEMP 98.8
[2017-08-31 13:28] VITALS: PULSE 90
== END 2017-08-31 13:29 | disposition home or self-care (01) ==
LOC: COL.ER 12:21
DX: G43.909 Migraine, unspecified, not intractable, without status migrainosus (principal); F31.9 Bipolar disorder, unspecified; J45.909 Unspecified asthma, uncomplicated; E66.01 Morbid (severe) obesity due to excess calories; Z98.84 Bariatric surgery status; Z90.49 Acquired absence of other specified parts of digestive tract; Z68.41 Body mass index [BMI] 40.0-44.9, adult
CPT/HCPCS: J0595; J2550

== ENCOUNTER 2017-09-29 18:31 | Emergency (ER) | payer MEDICARE, MEDICAID ==
[~2017-09-29 18:31] MED LIST changes: +FASTIN30 MG PO
[2017-09-29 18:35] VITALS: TEMP 98.2
[2017-09-29 19:44] VITALS: BP 129/80; PULSE 68
== END 2017-09-29 19:44 | disposition home or self-care (01) ==
LOC: COL.ER 18:31
DX: G43.909 Migraine, unspecified, not intractable, without status migrainosus (principal); J45.909 Unspecified asthma, uncomplicated
CPT/HCPCS: J0595; J2550

== ENCOUNTER 2017-10-08 19:34 | Emergency (ER) | payer MEDICARE, MEDICAID ==
[~2017-10-08] VITALS: Ht 160 cm; Wt 111.8 kg
[2017-10-08 20:00] VITALS: BP 118/65; TEMP 97.9
[2017-10-08] MEDS ORDERED: SPRINTEC 35 MCG1 TAB PO (20:18)
[2017-10-08] MEDS ORDERED: TOPAMAX 25MG25 M1 PO (20:18)
[2017-10-08] MEDS ORDERED: DESYREL DIVIDO150 M1 PO (20:18)
[2017-10-08 20:55] VITALS: PULSE 74
== END 2017-10-08 20:58 | disposition home or self-care (01) ==
LOC: COL.ER 19:34
DX: G43.909 Migraine, unspecified, not intractable, without status migrainosus (principal)
CPT/HCPCS: J0595; J0780; J1200

== ENCOUNTER 2017-10-16 18:57 | Emergency (ER) | payer MEDICARE, MEDICAID ==
[~2017-10-16] VITALS: Ht 160 cm; Wt 111.7 kg
[~2017-10-16 18:57] MED LIST changes: +SPRINTEC 35 MCG1 TAB PO; +TOPAMAX 25MG25 M1 PO
[2017-10-16 19:04] VITALS: BP 108/53; TEMP 97.5
[2017-10-16] MEDS ORDERED: LIORESAL 1010 MG/TAB PO (19:46)
[2017-10-16 20:50] VITALS: PULSE 55
== END 2017-10-16 20:50 | disposition home or self-care (01) ==
LOC: COL.ER 18:57
DX: G43.909 Migraine, unspecified, not intractable, without status migrainosus (principal)
CPT/HCPCS: J0595; J0780; J1200

== ENCOUNTER 2017-10-18 14:05 | Emergency (ER) | payer MEDICARE, MEDICAID ==
[~2017-10-18] VITALS: Ht 160 cm; Wt 111.4 kg
[~2017-10-18 14:05] MED LIST changes: +LIORESAL 1010 MG/TAB PO
[2017-10-18 14:13] VITALS: TEMP 98
[2017-10-18] MEDS ORDERED: MIDOL CAPLET1 EACH PO (15:38)
[2017-10-18 15:45] LABS: BASO # 0.1 (0.0-0.2); BASO % 0.6 % (0.0-2.0); EOS # 0.4 (0.0-0.7); EOS % 4.6 % (0-4.0); GRAN % 53.6 % (42.2-75.2); HEMATOCRIT 37.9 % (37.0-47.0); HEMOGLOBIN 12.4 g/dl (12.5-16.0); LYMPH # 3.2 (1.2-3.4); LYMPH % 34.5 % (20.0-51.0); MEAN CELL VOLUME 91 fl (80.0-100.0); MEAN CORPUSCULAR HEMOGLOBIN 30 pg (27.0-31.0); MEAN CORPUSCULAR HGB CONC 33 g/dl (33.0-37.0); MEAN PLATELET VOLUME 10.8 fl (7.4-10.4); MONO # 0.6 (0.1-0.6); MONO % 6.6 % (1.7-9.3); PLATELET COUNT 310 K/mm3 (130-400); RED BLOOD COUNT 4.15 M/mm3 (4.10-5.30); REDCELL DISTRIBUTION WIDTH-CV 13.7 % (11.5-14.5)
[2017-10-18 15:53] LABS: ALBUMIN 3.7 gm/dL (3.5-5.0); BILIRUBIN,TOTAL 0.3 mg/dL (0.0-1.0); CREATININE, serum 0.45 mg/dL (0.52-1.25); POTASSIUM 3.6 mmol/L (3.4-5.0); TOTAL PROTEIN 7.2 gm/dL (6.4-8.2)
[2017-10-18 17:01] VITALS: BP 111/60; PULSE 55
== END 2017-10-18 17:22 | disposition home or self-care (01) ==
LOC: COL.ER 14:05
PROVIDERS: Physician Assistant
DX: N93.8 Other specified abnormal uterine and vaginal bleeding (principal); J45.909 Unspecified asthma, uncomplicated; F32.9 Major depressive disorder, single episode, unspecified; F41.9 Anxiety disorder, unspecified; Z90.49 Acquired absence of other specified parts of digestive tract; Z87.891 Personal history of nicotine dependence; Z98.890 Other specified postprocedural states; Z98.84 Bariatric surgery status

== ENCOUNTER → 2017-10-23 | Outpatient (CLI) | payer MEDICARE, MEDICAID ==
[~2017-10-23] VITALS: Ht 160 cm; Wt 109.5 kg
[~2017-10-23] MED LIST changes: +LIDODERM 5% PATC1 EA TP; +MEDROL 4MG DOSPA4 MG PO; +MIDOL CAPLET1 EACH PO; -TOPAMAX 25MG25 M1 PO; +TOPAMAX50 MG PO
[2017-10-23 11:22] VITALS: BP 104/76; PULSE 60
== END ==
LOC: LIGHT 10:59
DX: E16.1 Other hypoglycemia (principal); E66.01 Morbid (severe) obesity due to excess calories; Z68.41 Body mass index [BMI] 40.0-44.9, adult; Z71.3 Dietary counseling and surveillance; E78.5 Hyperlipidemia, unspecified; J45.909 Unspecified asthma, uncomplicated
CPT/HCPCS: G0463

== ENCOUNTER → 2017-10-23 | Outpatient (CLI) | payer MEDICARE, MEDICAID | LOC: BHSO 10:44 | DX: F43.10 Post-traumatic stress disorder, unspecified (principal) | CPT/HCPCS: G0463 ==

== ENCOUNTER 2017-10-28 13:44 | Emergency (ER) | payer MEDICARE, MEDICAID ==
[~2017-10-28] VITALS: Ht 160 cm; Wt 111.3 kg
[~2017-10-28 13:44] MED LIST changes: -LIDODERM 5% PATC1 EA TP; -MEDROL 4MG DOSPA4 MG PO
[2017-10-28 13:49] VITALS: BP 113/62; TEMP 97.9
[2017-10-28] MEDS ORDERED: LIDODERM 5% PATC1 EA TP (15:08)
[2017-10-28] MEDS ORDERED: MEDROL 4MG DOSPA4 MG PO (15:08)
[2017-10-28 15:19] VITALS: PULSE 66
== END 2017-10-28 15:21 | disposition home or self-care (01) ==
LOC: COL.ER 13:44
DX: M54.12 Radiculopathy, cervical region (principal); F31.9 Bipolar disorder, unspecified; Z87.891 Personal history of nicotine dependence; J45.909 Unspecified asthma, uncomplicated; Z98.890 Other specified postprocedural states; Z98.84 Bariatric surgery status

== ENCOUNTER 2017-11-10 19:19 | Emergency (ER) | payer MEDICARE, MEDICAID ==
[~2017-11-10] VITALS: Ht 160 cm; Wt 108.5 kg
[~2017-11-10 19:19] MED LIST changes: +LIDODERM 5% PATC1 EA TP; +MEDROL 4MG DOSPA4 MG PO
[2017-11-10 19:23] VITALS: BP 103/56; TEMP 98.6
[2017-11-10 20:43] VITALS: PULSE 75
== END 2017-11-10 20:44 | disposition home or self-care (01) ==
LOC: COL.ER 19:19
DX: G43.909 Migraine, unspecified, not intractable, without status migrainosus (principal); Z79.51 Long term (current) use of inhaled steroids
CPT/HCPCS: J0595; J1200; J2550

== ENCOUNTER 2017-11-13 10:01 | Emergency (ER) | payer MEDICARE, MEDICAID ==
[~2017-11-13] VITALS: Ht 160 cm; Wt 108.2 kg
[2017-11-13 10:15] VITALS: BP 117/63; TEMP 98.3
[2017-11-13 12:57] VITALS: PULSE 78
== END 2017-11-13 12:56 | disposition home or self-care (01) ==
LOC: COL.ER 10:01
DX: G43.909 Migraine, unspecified, not intractable, without status migrainosus (principal); Z79.51 Long term (current) use of inhaled steroids
CPT/HCPCS: J0595; J0780; J1100

== ENCOUNTER 2017-11-21 20:04 | Emergency (ER) | payer MEDICARE, MEDICAID ==
[~2017-11-21] VITALS: Ht 160 cm; Wt 105.9 kg
[2017-11-21 20:15] VITALS: BP 128/74; PULSE 63; TEMP 98.2
== END 2017-11-21 21:04 | disposition home or self-care (01) ==
LOC: COL.ER 20:04
DX: G43.909 Migraine, unspecified, not intractable, without status migrainosus (principal); Z79.51 Long term (current) use of inhaled steroids
CPT/HCPCS: J0595; J0780

== ENCOUNTER → 2017-11-24 | Outpatient (CLI) | payer MEDICARE, MEDICAID | LOC: MHCPAIN 08:11 | DX: G89.29 Other chronic pain (principal); M54.12 Radiculopathy, cervical region; M47.812 Spondylosis without myelopathy or radiculopathy, cervical region | CPT/HCPCS: G0463 ==

== ENCOUNTER 2017-12-01 15:18 | Emergency (ER) | payer MEDICARE, MEDICAID ==
[~2017-12-01] VITALS: Ht 160 cm; Wt 104.5 kg
[2017-12-01 15:20] VITALS: TEMP 98.2
[2017-12-01 16:31] VITALS: BP 107/77; PULSE 67
== END 2017-12-01 16:30 | disposition home or self-care (01) ==
LOC: COL.ER 15:18
DX: G43.909 Migraine, unspecified, not intractable, without status migrainosus (principal)
CPT/HCPCS: J0595; J2550

== ENCOUNTER 2017-12-07 17:04 | Emergency (ER) | payer MEDICARE, MEDICAID ==
[~2017-12-07] VITALS: Ht 160 cm; Wt 100.5 kg
[2017-12-07 17:15] VITALS: BP 118/75; PULSE 67; TEMP 98.3
== END 2017-12-07 18:55 | disposition home or self-care (01) ==
LOC: COL.ER 17:04
DX: G43.909 Migraine, unspecified, not intractable, without status migrainosus (principal); R10.13 Epigastric pain; Z90.49 Acquired absence of other specified parts of digestive tract; F31.9 Bipolar disorder, unspecified; F41.9 Anxiety disorder, unspecified; J45.909 Unspecified asthma, uncomplicated; Z87.891 Personal history of nicotine dependence; Z98.84 Bariatric surgery status; Z79.51 Long term (current) use of inhaled steroids
CPT/HCPCS: J0595; J1100; J1200; J2765; J7030

== ENCOUNTER 2017-12-10 18:46 | Emergency (ER) | payer MEDICARE, MEDICAID ==
[~2017-12-10] VITALS: Ht 160 cm; Wt 100.5 kg
[2017-12-10 18:52] VITALS: BP 114/64; TEMP 98.1
[2017-12-10 19:43] VITALS: PULSE 82
== END 2017-12-10 19:44 | disposition home or self-care (01) ==
LOC: COL.ER 18:46
DX: G43.909 Migraine, unspecified, not intractable, without status migrainosus (principal); F32.9 Major depressive disorder, single episode, unspecified; E66.9 Obesity, unspecified; Z90.49 Acquired absence of other specified parts of digestive tract; Z98.84 Bariatric surgery status; Z79.51 Long term (current) use of inhaled steroids
CPT/HCPCS: J0595; J2550

== ENCOUNTER 2017-12-11 11:00 | Outpatient (RCR) | payer MEDICARE, MEDICAID ==
[2017-12-12] MEDS ORDERED: ULTRAM 50MG TAB50 MG PO (16:23)
[2017-12-20] MEDS ORDERED: ZOFRAN ODT4 MG PO (21:21)
== END 2017-12-23 07:55 | disposition home or self-care (01) ==
LOC: WSPT 11:00
DX: S46.811D Strain of other muscles, fascia and tendons at shoulder and upper arm level, right arm, subsequent encounter (principal); Z79.899 Other long term (current) drug therapy; Z87.891 Personal history of nicotine dependence
CPT/HCPCS: G0283-GP; G8984-GP; G8985-GP

== ENCOUNTER 2017-12-12 14:56 | Emergency (ER) | payer MEDICARE, MEDICAID ==
[~2017-12-12] VITALS: Ht 160 cm; Wt 100.5 kg
[2017-12-12 14:57] VITALS: BP 108/53; TEMP 98.9
[2017-12-12] MEDS ORDERED: ULTRAM 50MG TAB50 MG PO (16:23)
[2017-12-12 16:41] VITALS: PULSE 70
== END 2017-12-12 16:43 | disposition home or self-care (01) ==
LOC: COL.ER 14:56
DX: G43.909 Migraine, unspecified, not intractable, without status migrainosus (principal); J45.909 Unspecified asthma, uncomplicated; F32.9 Major depressive disorder, single episode, unspecified; F41.9 Anxiety disorder, unspecified; Z90.49 Acquired absence of other specified parts of digestive tract; Z98.890 Other specified postprocedural states; Z98.84 Bariatric surgery status; Z79.51 Long term (current) use of inhaled steroids
CPT/HCPCS: J1200; J2060; J2405; J7030

== ENCOUNTER 2017-12-17 14:53 | Emergency (ER) | payer MEDICARE, MEDICAID ==
[~2017-12-17] VITALS: Ht 160 cm; Wt 100.5 kg
[2017-12-17 14:56] VITALS: BP 102/57; TEMP 98.6
[2017-12-17 17:27] VITALS: PULSE 80
== END 2017-12-17 17:40 | disposition home or self-care (01) ==
LOC: COL.ER 14:53
DX: G43.909 Migraine, unspecified, not intractable, without status migrainosus (principal)
CPT/HCPCS: J1200; J1630; J2550

== ENCOUNTER 2017-12-20 19:49 | Emergency (ER) | payer MEDICARE, MEDICAID ==
[~2017-12-20] VITALS: Ht 160 cm; Wt 100.5 kg
[2017-12-20 19:51] VITALS: BP 123/75; TEMP 98.4
[2017-12-20] MEDS ORDERED: ZOFRAN ODT4 MG PO (21:21)
[2017-12-20 21:42] VITALS: PULSE 56
== END 2017-12-20 21:45 | disposition home or self-care (01) ==
LOC: COL.ER 19:49
DX: G43.909 Migraine, unspecified, not intractable, without status migrainosus (principal); Z79.51 Long term (current) use of inhaled steroids
CPT/HCPCS: J0595; J2550

== ENCOUNTER → 2017-12-25 | Outpatient (CLI) | payer MEDICARE, MEDICAID ==
[~2017-12-25] VITALS: Ht 160 cm; Wt 106.8 kg
[2017-12-25 13:14] VITALS: BP 94/60; PULSE 80
== END ==
LOC: LIGHT 09-25 13:36
DX: E16.1 Other hypoglycemia (principal); E66.01 Morbid (severe) obesity due to excess calories; Z71.3 Dietary counseling and surveillance; E78.5 Hyperlipidemia, unspecified; J45.909 Unspecified asthma, uncomplicated
CPT/HCPCS: G0463

== ENCOUNTER 2017-12-26 11:53 | Emergency (ER) | payer MEDICARE, MEDICAID ==
[~2017-12-26] VITALS: Ht 160 cm; Wt 100.0 kg
[2017-12-26 11:58] VITALS: BP 118/63; TEMP 98.8
[2017-12-26] MEDS ORDERED: ULTRAM 50MG TAB50 MG PO (12:43)
[2017-12-26 12:54] VITALS: PULSE 96
== END 2017-12-26 12:55 | disposition home or self-care (01) ==
LOC: COL.ER 11:53
DX: S73.101A Unspecified sprain of right hip, initial encounter (principal); F31.9 Bipolar disorder, unspecified; I10 Essential (primary) hypertension; Z98.890 Other specified postprocedural states; Z90.49 Acquired absence of other specified parts of digestive tract; Z98.84 Bariatric surgery status; X50.0XXA Overexertion from strenuous movement or load, initial encounter; Y92.39 Other specified sports and athletic area as the place of occurrence of the external cause

== ENCOUNTER 2017-12-30 20:34 | Emergency (ER) | payer MEDICARE, MEDICAID ==
[~2017-12-30] VITALS: Ht 160 cm; Wt 100.5 kg
[2017-12-30 20:37] VITALS: TEMP 98.3
[2017-12-30 22:00] VITALS: BP 119/81; PULSE 81
== END 2017-12-30 22:10 | disposition home or self-care (01) ==
LOC: COL.ER 20:34
DX: G43.909 Migraine, unspecified, not intractable, without status migrainosus (principal); I10 Essential (primary) hypertension; Z79.51 Long term (current) use of inhaled steroids
CPT/HCPCS: J0595; J2550

== ENCOUNTER 2018-01-01 22:38 | Emergency (ER) | payer MEDICARE, MEDICAID ==
[2018-01-01 23:13] LABS: BASO # 0.1 (0.0-0.2); BASO % 0.6 % (0.0-2.0); EOS # 0.6 (0.0-0.7); EOS % 6.3 % (0-4.0); GRAN # 5.4 (1.4-6.5); GRAN % 53.9 % (42.2-75.2); HEMATOCRIT 38.5 % (37.0-47.0); HEMOGLOBIN 12.9 g/dl (12.5-16.0); LYMPH # 3.4 (1.2-3.4); LYMPH % 33.9 % (20.0-51.0); MEAN CELL VOLUME 91 fl (80.0-100.0); MEAN CORPUSCULAR HEMOGLOBIN 31 pg (27.0-31.0); MEAN CORPUSCULAR HGB CONC 34 g/dl (33.0-37.0); MEAN PLATELET VOLUME 10.2 fl (7.4-10.4); MONO # 0.5 (0.1-0.6); MONO % 5.1 % (1.7-9.3); PLATELET COUNT 321 K/mm3 (130-400); RED BLOOD COUNT 4.21 M/mm3 (4.10-5.30); REDCELL DISTRIBUTION WIDTH-CV 13.3 % (11.5-14.5)
[2018-01-01 23:16] LABS: COLLECTION METHOD CLEAN CATCH
[2018-01-01 23:22] LABS: MUCOUS Present /lpf; PH 6 (5-8); URINE APPEARANCE Clear; URINE BACTERIA Rare /hpf; URINE BILIRUBIN Negative (NEGATIVE); URINE BLOOD Negative (NEGATIVE); URINE COLOR Yellow; URINE GLUCOSE Negative (NEGATIVE); URINE KETONE Negative (NEGATIVE); URINE LEUKOCYTE ESTERASE Negative (NEGATIVE); URINE NITRATE Negative (NEGATIVE); URINE PROTEIN(semi-quant) 2+ (NEGATIVE); URINE RBC 0-2 /hpf; URINE UROBILINOGEN Negative (NEGATIVE)
[2018-01-01 23:28] LABS: BILIRUBIN,TOTAL 0.2 mg/dL (0.0-1.0); CALCIUM 8.9 mg/dL (8.4-10.2); CREATININE, serum 0.5 mg/dL (0.52-1.25); POTASSIUM 3.6 mmol/L (3.4-5.0); TOTAL PROTEIN 7.2 gm/dL (6.4-8.2)
[2018-01-02 01:10] VITALS: BP 98/59; PULSE 70; TEMP 98.7
== END 2018-01-02 01:11 | disposition home or self-care (01) ==
LOC: COL.ER 22:38
PROVIDERS: Physician Assistant
DX: G43.909 Migraine, unspecified, not intractable, without status migrainosus (principal); Z79.51 Long term (current) use of inhaled steroids
CPT/HCPCS: J0595; J2550

== ENCOUNTER 2018-01-05 05:54 | Emergency (ER) | payer MEDICARE, MEDICAID ==
[~2018-01-05] VITALS: Ht 160 cm; Wt 104.5 kg
[2018-01-05 05:58] VITALS: BP 106/60; TEMP 98
[2018-01-05 07:19] VITALS: PULSE 86
== END 2018-01-05 07:19 | disposition home or self-care (01) ==
LOC: COL.ER 05:54
DX: G43.909 Migraine, unspecified, not intractable, without status migrainosus (principal); Z98.890 Other specified postprocedural states; Z79.51 Long term (current) use of inhaled steroids
CPT/HCPCS: J0595; J0780; J1200

== ENCOUNTER 2018-01-05 18:41 | Emergency (ER) | payer MEDICARE, MEDICAID ==
[~2018-01-05] VITALS: Ht 157.5 cm; Wt 104.5 kg
[2018-01-05 18:52] VITALS: BP 111/60; TEMP 98.1
[2018-01-05 21:34] VITALS: PULSE 64
== END 2018-01-05 21:35 | disposition home or self-care (01) ==
LOC: COL.ER 18:41
DX: G43.909 Migraine, unspecified, not intractable, without status migrainosus (principal)
CPT/HCPCS: J0595; J1100; J2550

== ENCOUNTER 2018-01-11 13:27 | Emergency (ER) | payer MEDICARE, MEDICAID ==
[~2018-01-11] VITALS: Ht 160 cm; Wt 104.5 kg
[2018-01-11 13:40] VITALS: TEMP 98.9
[2018-01-11 14:53] LABS: COLLECTION METHOD CLEAN CATCH
[2018-01-11 14:58] LABS: MUCOUS Present /lpf; PH 7 (5-8); URINE APPEARANCE Hazy; URINE BACTERIA Rare /hpf; URINE BILIRUBIN Negative (NEGATIVE); URINE BLOOD 3+ (NEGATIVE); URINE COLOR Yellow; URINE GLUCOSE Negative (NEGATIVE); URINE KETONE Negative (NEGATIVE); URINE LEUKOCYTE ESTERASE Negative (NEGATIVE); URINE NITRATE Negative (NEGATIVE); URINE PROTEIN(semi-quant) 1+ (NEGATIVE); URINE RBC 0-2 /hpf; URINE UROBILINOGEN Negative (NEGATIVE)
[2018-01-11] MEDS ORDERED: FLEXERIL 1010 MG/TAB PO (15:32)
[2018-01-11 16:10] VITALS: BP 95/62; PULSE 62
== END 2018-01-11 16:10 | disposition home or self-care (01) ==
LOC: COL.ER 13:27
PROVIDERS: Nurse Practitioner Primary Care
DX: M54.31 Sciatica, right side (principal); F31.9 Bipolar disorder, unspecified; F41.9 Anxiety disorder, unspecified; J45.909 Unspecified asthma, uncomplicated; Z90.49 Acquired absence of other specified parts of digestive tract; Z98.84 Bariatric surgery status; Z79.51 Long term (current) use of inhaled steroids
CPT/HCPCS: J2360

== ENCOUNTER 2018-01-12 16:47 | Emergency (ER) | payer MEDICARE, MEDICAID ==
[~2018-01-12] VITALS: Ht 160 cm; Wt 104.5 kg
[2018-01-12 17:02] VITALS: BP 99/72; TEMP 99.1
[2018-01-12 19:10] VITALS: PULSE 75
== END 2018-01-12 19:10 | disposition home or self-care (01) ==
LOC: COL.ER 16:47
DX: G43.909 Migraine, unspecified, not intractable, without status migrainosus (principal)
CPT/HCPCS: J0595; J2550

== ENCOUNTER 2018-01-14 11:57 | Emergency (ER) | payer MEDICARE, MEDICAID ==
[~2018-01-14] VITALS: Ht 160 cm; Wt 104.5 kg
[~2018-01-14 11:57] MED LIST changes: -ATARAX50 MG PO; -TOPAMAX 100MG100 M1 PO; -VIIBRYD20 MG PO
[2018-01-14 12:13] VITALS: TEMP 98.7
[2018-01-14 15:23] VITALS: BP 127/72; PULSE 67
== END 2018-01-14 15:24 | disposition home or self-care (01) ==
LOC: COL.ER 11:57
DX: G43.909 Migraine, unspecified, not intractable, without status migrainosus (principal); J45.909 Unspecified asthma, uncomplicated; Z98.84 Bariatric surgery status; Z79.51 Long term (current) use of inhaled steroids
CPT/HCPCS: J0595; J2550

== ENCOUNTER → 2018-01-14 | Outpatient (CLI) | payer MEDICARE, MEDICAID ==
[~2018-01-14] MED LIST changes: +ATARAX50 MG PO; +TOPAMAX 100MG100 M1 PO; +VIIBRYD20 MG PO
== END ==
LOC: BHSO 09:42
DX: F31.81 Bipolar II disorder (principal)
CPT/HCPCS: G0463

== ENCOUNTER 2018-01-19 20:06 | Emergency (ER) | payer MEDICARE, MEDICAID ==
[~2018-01-19] VITALS: Ht 160 cm; Wt 104.5 kg
[2018-01-19 20:15] VITALS: BP 121/60; TEMP 98.6
[2018-01-19] MEDS ORDERED: TOPAMAX 100MG100 M1 PO (20:43)
[2018-01-19] MEDS ORDERED: VIIBRYD20 MG PO (20:44)
[2018-01-19] MEDS ORDERED: ATARAX50 MG PO (20:44)
[2018-01-19 21:02] VITALS: PULSE 85
== END 2018-01-19 21:02 | disposition home or self-care (01) ==
LOC: COL.ER 20:06
DX: G43.909 Migraine, unspecified, not intractable, without status migrainosus (principal)
CPT/HCPCS: J0595; J2550

== ENCOUNTER 2018-01-24 16:16 | Emergency (ER) | payer MEDICARE, MEDICAID ==
[~2018-01-24] VITALS: Ht 160 cm; Wt 104.5 kg
[~2018-01-24 16:16] MED LIST changes: +ATARAX50 MG PO; +TOPAMAX 100MG100 M1 PO; +VIIBRYD20 MG PO
[2018-01-24 16:37] VITALS: BP 118/35; TEMP 98.1
[2018-01-24 17:52] VITALS: PULSE 67
== END 2018-01-24 17:52 | disposition home or self-care (01) ==
LOC: COL.ER 16:16
DX: G43.909 Migraine, unspecified, not intractable, without status migrainosus (principal)
CPT/HCPCS: J0595; J2550

== ENCOUNTER → 2018-01-26 | Outpatient (CLI) | payer MEDICARE, MEDICAID | LOC: MHCPAIN 08:10 | DX: G89.29 Other chronic pain (principal); M50.90 Cervical disc disorder, unspecified, unspecified cervical region; M54.12 Radiculopathy, cervical region | CPT/HCPCS: G0463 ==

== ENCOUNTER 2018-02-11 20:20 | Emergency (ER) | payer MEDICARE, MEDICAID ==
[~2018-02-11] VITALS: Ht 160 cm; Wt 101.8 kg
[2018-02-11 20:26] VITALS: TEMP 97.7
[2018-02-11] MEDS ORDERED: TOPAMAX 100MG100 M1 PO (22:21)
[2018-02-11] MEDS ORDERED: AMITRIPTYLINE H25 M1 PO (22:22)
[2018-02-11] MEDS ORDERED: PHENERGAN 25 TA25 MG PO (22:22)
[2018-02-11] MEDS ORDERED: RIBOFLAVIN400 MG PO (22:22)
[2018-02-11 23:07] VITALS: BP 115/72; PULSE 71
== END 2018-02-11 23:09 | disposition home or self-care (01) ==
LOC: COL.ER 20:20
DX: G43.909 Migraine, unspecified, not intractable, without status migrainosus (principal); J02.9 Acute pharyngitis, unspecified; Z79.51 Long term (current) use of inhaled steroids
CPT/HCPCS: J0595; J2550

== ENCOUNTER → 2018-02-12 | Outpatient (CLI) | payer MEDICARE, MEDICAID ==
[~2018-02-12] VITALS: Ht 160 cm; Wt 102.7 kg
[~2018-02-12] MED LIST changes: +RIBOFLAVIN400 MG PO
[2018-02-12 16:58] VITALS: BP 110/84; PULSE 64
== END ==
LOC: LIGHT 15:20
DX: E16.9 Disorder of pancreatic internal secretion, unspecified (principal); E78.5 Hyperlipidemia, unspecified; J45.909 Unspecified asthma, uncomplicated; E66.01 Morbid (severe) obesity due to excess calories; Z68.41 Body mass index [BMI] 40.0-44.9, adult; Z71.3 Dietary counseling and surveillance
CPT/HCPCS: G0463

== ENCOUNTER 2018-02-15 17:05 | Emergency (ER) | payer MEDICARE, MEDICAID ==
[~2018-02-15] VITALS: Ht 160 cm; Wt 101.8 kg
[2018-02-15 17:21] VITALS: TEMP 98.7
[2018-02-15 20:26] VITALS: BP 116/71; PULSE 82
== END 2018-02-15 20:45 | disposition home or self-care (01) ==
LOC: COL.ER 17:05
DX: G43.909 Migraine, unspecified, not intractable, without status migrainosus (principal); F32.9 Major depressive disorder, single episode, unspecified; F41.9 Anxiety disorder, unspecified; J45.909 Unspecified asthma, uncomplicated; G47.00 Insomnia, unspecified; Z98.890 Other specified postprocedural states; Z98.84 Bariatric surgery status; Z88.6 Allergy status to analgesic agent; Z79.51 Long term (current) use of inhaled steroids
CPT/HCPCS: J1170; J2405

== ENCOUNTER 2018-02-18 16:10 | Emergency (ER) | payer MEDICARE, MEDICAID ==
[~2018-02-18] VITALS: Ht 63 cm; Wt 101.8 kg
[2018-02-18 16:14] VITALS: BP 115/65; TEMP 98.5
[2018-02-18 17:44] VITALS: PULSE 79
== END 2018-02-18 17:44 | disposition home or self-care (01) ==
LOC: COL.ER 16:10
DX: G43.909 Migraine, unspecified, not intractable, without status migrainosus (principal); E66.9 Obesity, unspecified; Z87.891 Personal history of nicotine dependence; Z79.51 Long term (current) use of inhaled steroids
CPT/HCPCS: J1200; J1630; J2550

== ENCOUNTER 2018-02-25 06:23 | Emergency (ER) | payer MEDICARE, MEDICAID ==
[~2018-02-25] VITALS: Ht 160 cm; Wt 101.8 kg
[2018-02-25 06:33] VITALS: TEMP 98.2
[2018-02-25] MEDS ORDERED: LIORESAL 1010 MG/TAB PO (06:37)
[2018-02-25 07:33] VITALS: BP 120/68; PULSE 80
== END 2018-02-25 07:35 | disposition home or self-care (01) ==
LOC: COL.ER 06:23
DX: G43.909 Migraine, unspecified, not intractable, without status migrainosus (principal)
CPT/HCPCS: J0595; J2405

== ENCOUNTER → 2018-02-25 | Outpatient (CLI) | payer MEDICARE, MEDICAID | LOC: MHCPAIN 08:04 | DX: G89.29 Other chronic pain (principal); M50.90 Cervical disc disorder, unspecified, unspecified cervical region; M54.12 Radiculopathy, cervical region | CPT/HCPCS: G0463 ==

== ENCOUNTER 2018-02-28 09:37 | Emergency (ER) | payer MEDICARE, MEDICAID ==
[~2018-02-28] VITALS: Ht 160 cm; Wt 101.8 kg
[2018-02-28 09:41] VITALS: TEMP 98.1
[2018-02-28 11:06] VITALS: BP 118/64; PULSE 70
== END 2018-02-28 11:06 | disposition home or self-care (01) ==
LOC: COL.ER 09:37
DX: G89.29 Other chronic pain (principal); M54.6 Pain in thoracic spine; G43.909 Migraine, unspecified, not intractable, without status migrainosus; Z98.84 Bariatric surgery status; Z79.51 Long term (current) use of inhaled steroids
CPT/HCPCS: J1170; J2550

== ENCOUNTER 2018-03-04 21:00 | Emergency (ER) | payer MEDICARE, MEDICAID ==
[~2018-03-04] VITALS: Ht 160 cm; Wt 101.8 kg
[2018-03-04 21:02] VITALS: BP 112/60; TEMP 98.3
[2018-03-04 22:11] VITALS: PULSE 69
== END 2018-03-04 22:11 | disposition home or self-care (01) ==
LOC: COL.ER 21:00
DX: G43.909 Migraine, unspecified, not intractable, without status migrainosus (principal)
CPT/HCPCS: J1100; J1200; J2765

== ENCOUNTER 2018-03-11 19:07 | Emergency (ER) | payer MEDICARE, MEDICAID ==
[~2018-03-11] VITALS: Ht 160 cm; Wt 101.8 kg
[2018-03-11 19:09] VITALS: TEMP 98.3
[2018-03-11 19:39] LABS: COLLECTION METHOD CLEAN CATCH
[2018-03-11 19:48] LABS: MUCOUS Present /lpf; PH 6 (5-8); SQUAMOUS EPITHELIAL 0-2 /hpf; URINE APPEARANCE Cloudy; URINE BACTERIA None Seen /hpf; URINE BILIRUBIN Negative (NEGATIVE); URINE BLOOD 1+ (NEGATIVE); URINE COLOR Amber; URINE GLUCOSE Negative (NEGATIVE); URINE KETONE Negative (NEGATIVE); URINE LEUKOCYTE ESTERASE Negative (NEGATIVE); URINE NITRATE Negative (NEGATIVE); URINE PROTEIN(semi-quant) 1+ (NEGATIVE); URINE RBC 0-2 /hpf; URINE UROBILINOGEN Negative (NEGATIVE)
[2018-03-11 21:15] VITALS: BP 117/67; PULSE 66
== END 2018-03-11 21:15 | disposition home or self-care (01) ==
LOC: COL.ER 19:07
PROVIDERS: Physician Assistant
DX: M48.061 Spinal stenosis, lumbar region without neurogenic claudication (principal); G89.29 Other chronic pain; M54.5 Low back pain; R11.0 Nausea
CPT/HCPCS: J0595; J2550

== ENCOUNTER 2018-03-16 23:50 | Emergency (ER) | payer MEDICARE, MEDICAID ==
[~2018-03-16] VITALS: Ht 7.6 cm; Wt 101.8 kg
[2018-03-16 23:53] VITALS: BP 130/73; TEMP 97.3
[2018-03-17 00:14] VITALS: PULSE 63
== END 2018-03-17 00:15 | disposition home or self-care (01) ==
LOC: COL.ER 23:50
DX: G89.29 Other chronic pain (principal); M54.6 Pain in thoracic spine; F31.9 Bipolar disorder, unspecified; F41.9 Anxiety disorder, unspecified; Z79.51 Long term (current) use of inhaled steroids

== ENCOUNTER 2018-03-18 19:04 | Emergency (ER) | payer MEDICARE, MEDICAID ==
[~2018-03-18] VITALS: Ht 160 cm; Wt 101.8 kg
[2018-03-18 19:07] VITALS: BP 123/55; PULSE 90; TEMP 98.1
== END 2018-03-18 21:07 | disposition home or self-care (01) ==
LOC: COL.ER 19:04
DX: G43.909 Migraine, unspecified, not intractable, without status migrainosus (principal); Z98.84 Bariatric surgery status
CPT/HCPCS: J3010

== ENCOUNTER 2018-03-20 18:46 | Emergency (ER) | payer MEDICARE, MEDICAID ==
[~2018-03-20] VITALS: Ht 160 cm; Wt 101.8 kg
[2018-03-20 18:50] VITALS: BP 108/57; TEMP 98.3
[2018-03-20 20:33] VITALS: PULSE 66
== END 2018-03-20 20:33 | disposition home or self-care (01) ==
LOC: COL.ER 18:46
DX: G43.909 Migraine, unspecified, not intractable, without status migrainosus (principal); R11.0 Nausea
CPT/HCPCS: J0595; J1200; J2765

== ENCOUNTER → 2018-03-23 | Emergency (ER) | payer MEDICARE, MEDICAID ==
[~2018-03-23] VITALS: Ht 160 cm; Wt 101.8 kg
[2018-03-23 14:25] VITALS: BP 108/57; PULSE 73; TEMP 98.3
== END ==
LOC: COL.ER 13:56
DX: G43.909 Migraine, unspecified, not intractable, without status migrainosus (principal); F32.9 Major depressive disorder, single episode, unspecified; F41.9 Anxiety disorder, unspecified; Z90.49 Acquired absence of other specified parts of digestive tract; Z98.84 Bariatric surgery status; Z98.890 Other specified postprocedural states; Z79.51 Long term (current) use of inhaled steroids
CPT/HCPCS: J0595; J2765

== ENCOUNTER 2018-03-25 20:37 | Emergency (ER) | payer MEDICARE, MEDICAID ==
[~2018-03-25] VITALS: Ht 160 cm; Wt 101.8 kg
[2018-03-25 20:49] VITALS: TEMP 98.6
[2018-03-25 23:03] VITALS: BP 112/66; PULSE 88
== END 2018-03-25 23:04 | disposition home or self-care (01) ==
LOC: COL.ER 20:37
DX: G43.909 Migraine, unspecified, not intractable, without status migrainosus (principal); Z79.51 Long term (current) use of inhaled steroids
CPT/HCPCS: J0595; J1200; J2550

== ENCOUNTER 2018-03-30 19:34 | Emergency (ER) | payer MEDICARE, MEDICAID ==
[~2018-03-30] VITALS: Ht 160 cm; Wt 101.8 kg
[2018-03-30 19:46] VITALS: TEMP 98.7
[2018-03-31 00:52] VITALS: BP 120/83; PULSE 65
== END 2018-03-31 00:53 | disposition home or self-care (01) ==
LOC: COL.ER 19:34
DX: M54.5 Low back pain (principal)
CPT/HCPCS: J0595; J2550

== ENCOUNTER 2018-04-02 19:36 | Emergency (ER) | payer MEDICARE, MEDICAID ==
[~2018-04-02] VITALS: Ht 160 cm; Wt 101.8 kg
[2018-04-02 19:46] VITALS: BP 122/80; TEMP 98
[2018-04-02] MEDS ORDERED: NORCO 325 MG-51 TAB PO (20:15)
[2018-04-02 21:00] VITALS: PULSE 75
== END 2018-04-02 21:00 | disposition home or self-care (01) ==
LOC: COL.ER 19:36
DX: G43.909 Migraine, unspecified, not intractable, without status migrainosus (principal); J45.909 Unspecified asthma, uncomplicated; Z98.84 Bariatric surgery status; Z79.51 Long term (current) use of inhaled steroids
CPT/HCPCS: J3010

== ENCOUNTER 2018-04-06 18:02 | Emergency (ER) | payer MEDICARE, MEDICAID ==
[~2018-04-06] VITALS: Ht 160 cm; Wt 101.8 kg
[2018-04-06 18:06] VITALS: TEMP 97.4
[2018-04-06 20:16] VITALS: BP 106/72; PULSE 78
== END 2018-04-06 20:18 | disposition home or self-care (01) ==
LOC: COL.ER 18:02
DX: G43.909 Migraine, unspecified, not intractable, without status migrainosus (principal); J45.909 Unspecified asthma, uncomplicated; F31.9 Bipolar disorder, unspecified; Z87.891 Personal history of nicotine dependence; Z98.84 Bariatric surgery status; Z79.51 Long term (current) use of inhaled steroids
CPT/HCPCS: J2405; J3010

== ENCOUNTER 2018-04-12 14:03 | Emergency (ER) | payer MEDICARE, MEDICAID ==
[~2018-04-12] VITALS: Ht 160 cm; Wt 101.8 kg
[2018-04-12 14:10] VITALS: BP 130/65; TEMP 98.7
[2018-04-12 16:17] VITALS: PULSE 86
[2018-04-13] MEDS ORDERED: VOLTAREN GEL 1%1 TU TP (21:17)
== END 2018-04-12 16:18 | disposition home or self-care (01) ==
LOC: COL.ER 14:03
DX: G89.29 Other chronic pain (principal); M54.2 Cervicalgia; J45.909 Unspecified asthma, uncomplicated; F31.9 Bipolar disorder, unspecified; Z98.84 Bariatric surgery status; Z79.51 Long term (current) use of inhaled steroids
CPT/HCPCS: J2405; J3010

== ENCOUNTER 2018-04-13 19:11 | Emergency (ER) | payer MEDICARE, MEDICAID ==
[~2018-04-13] VITALS: Ht 160 cm; Wt 101.8 kg
[2018-04-13] MEDS ORDERED: VOLTAREN GEL 1%1 TU TP (21:17)
[2018-04-13 21:23] VITALS: BP 111/59; PULSE 69; TEMP 97.8
== END 2018-04-13 21:40 | disposition home or self-care (01) ==
LOC: COL.ER 19:11
DX: G89.29 Other chronic pain (principal); M54.6 Pain in thoracic spine; G43.909 Migraine, unspecified, not intractable, without status migrainosus; Z98.84 Bariatric surgery status; Z79.51 Long term (current) use of inhaled steroids

== ENCOUNTER 2018-04-17 09:02 | Emergency (ER) | payer MEDICARE, MEDICAID ==
[~2018-04-17] VITALS: Ht 160 cm; Wt 101.8 kg
[~2018-04-17 09:02] MED LIST changes: +VOLTAREN GEL 1%1 TU TP
[2018-04-17 09:04] VITALS: BP 117/65; PULSE 78; TEMP 97.6
== END 2018-04-17 10:11 | disposition home or self-care (01) ==
LOC: COL.ER 09:02
DX: G43.909 Migraine, unspecified, not intractable, without status migrainosus (principal); J45.909 Unspecified asthma, uncomplicated; F31.9 Bipolar disorder, unspecified; F41.9 Anxiety disorder, unspecified; Z87.891 Personal history of nicotine dependence; Z98.84 Bariatric surgery status; Z90.49 Acquired absence of other specified parts of digestive tract; Z88.5 Allergy status to narcotic agent; Z79.51 Long term (current) use of inhaled steroids
CPT/HCPCS: J0595; J2405

== ENCOUNTER → 2018-04-28 | Outpatient (RCR) | payer MEDICARE, MEDICAID | END | disposition home or self-care (01) | LOC: WSPT | DX: M54.41 Lumbago with sciatica, right side (principal); Z86.39 Personal history of other endocrine, nutritional and metabolic disease; Z98.84 Bariatric surgery status; Z79.899 Other long term (current) drug therapy | CPT/HCPCS: G8978-GP; G8979-GP ==

== ENCOUNTER 2018-05-09 15:49 | Emergency (ER) | payer MEDICARE, MEDICAID ==
[~2018-05-09] VITALS: Ht 160 cm; Wt 100.9 kg
[2018-05-09] MEDS ORDERED: ALBUTEROL1.25 MG/3 IH (16:27)
[2018-05-09] MEDS ORDERED: AMITRIPTYLINE H25 M1 PO (16:31)
[2018-05-09 17:58] VITALS: BP 105/56; PULSE 57; TEMP 97.9
== END 2018-05-09 17:58 | disposition home or self-care (01) ==
LOC: COL.ER 15:49
DX: G43.909 Migraine, unspecified, not intractable, without status migrainosus (principal); Z79.51 Long term (current) use of inhaled steroids
CPT/HCPCS: J0595; J1200; J1630

== ENCOUNTER 2018-05-13 18:51 | Emergency (ER) | payer MEDICARE, MEDICAID ==
[~2018-05-13] VITALS: Ht 160 cm; Wt 101.8 kg
[2018-05-13 18:54] VITALS: TEMP 98.4
[2018-05-13 20:25] VITALS: BP 106/63; PULSE 63
== END 2018-05-13 20:27 | disposition home or self-care (01) ==
LOC: COL.ER 18:51
DX: G43.909 Migraine, unspecified, not intractable, without status migrainosus (principal); Z79.51 Long term (current) use of inhaled steroids
CPT/HCPCS: J0595; J1200; J2765

== ENCOUNTER 2018-05-15 19:18 | Emergency (ER) | payer MEDICARE, MEDICAID ==
[~2018-05-15] VITALS: Ht 160 cm; Wt 101.8 kg
[2018-05-15 19:22] VITALS: TEMP 98.6
[2018-05-15 20:55] VITALS: BP 123/78; PULSE 60
== END 2018-05-15 20:56 | disposition home or self-care (01) ==
LOC: COL.ER 19:18
DX: R51 Headache (principal)
CPT/HCPCS: J0780; J1200; J1885; J3030

== ENCOUNTER → 2018-05-18 | Outpatient (CLI) | payer MEDICARE, MEDICAID | LOC: MHCPAIN 08:42 | DX: G89.29 Other chronic pain (principal); M54.12 Radiculopathy, cervical region; M54.81 Occipital neuralgia; R51 Headache; M47.812 Spondylosis without myelopathy or radiculopathy, cervical region | CPT/HCPCS: G0463 ==

== ENCOUNTER 2018-05-20 13:46 | Outpatient (RCR) | payer MEDICARE, MEDICAID ==
[2018-05-20] MEDS ORDERED: ABILIFY 10MG TA10 MG PO (17:49)
[2018-05-20] MEDS ORDERED: VIIBRYD20 MG PO (17:50)
[2018-05-21] MEDS ORDERED: VYVANSE40 MG PO (14:58)
[2018-05-24] MEDS ORDERED: FASTIN30 MG PO (11:33)
[2018-05-24] MEDS ORDERED: NORCO 325 MG-51 TAB PO (12:28)
[2018-06-16] MEDS ORDERED: CALCIUM CITRAT200 M2 (19:33)
[2018-07-02] MEDS ORDERED: WELLBUTRIN 75MG75 MG PO (14:21)
[2018-07-19] MEDS ORDERED: TYLENOL 500MG500 MG PO (11:13)
[2018-07-19] MEDS ORDERED: PREDNISONE20 MG PO (12:10)
== END 2018-08-18 | disposition home or self-care (01) ==
LOC: WSPT
DX: M54.5 Low back pain (principal); M25.551 Pain in right hip

== ENCOUNTER 2018-05-20 17:34 | Emergency (ER) | payer MEDICARE, MEDICAID ==
[~2018-05-20] VITALS: Ht 160 cm; Wt 101.8 kg
[2018-05-20 17:40] VITALS: TEMP 98.7
[2018-05-20] MEDS ORDERED: ABILIFY 10MG TA10 MG PO (17:49)
[2018-05-20] MEDS ORDERED: VIIBRYD20 MG PO (17:50)
[2018-05-20 19:15] VITALS: BP 107/73; PULSE 73
[2018-05-21] MEDS ORDERED: VYVANSE40 MG PO (14:58)
== END 2018-05-20 19:10 | disposition home or self-care (01) ==
LOC: COL.ER 17:34
DX: G43.909 Migraine, unspecified, not intractable, without status migrainosus (principal); F31.9 Bipolar disorder, unspecified; F41.9 Anxiety disorder, unspecified; Z98.84 Bariatric surgery status; Z90.49 Acquired absence of other specified parts of digestive tract; Z87.891 Personal history of nicotine dependence; Z79.51 Long term (current) use of inhaled steroids
CPT/HCPCS: J2550; J2765

== ENCOUNTER → 2018-05-21 | Outpatient (CLI) | payer MEDICARE, MEDICAID ==
[~2018-05-21] VITALS: Ht 160 cm; Wt 103.0 kg
[2018-05-21 14:17] VITALS: BP 102/82; PULSE 80
== END ==
LOC: LIGHT 04-16 12:39
DX: E16.9 Disorder of pancreatic internal secretion, unspecified (principal); J45.909 Unspecified asthma, uncomplicated; E78.5 Hyperlipidemia, unspecified; E66.01 Morbid (severe) obesity due to excess calories; Z68.41 Body mass index [BMI] 40.0-44.9, adult; Z71.3 Dietary counseling and surveillance
CPT/HCPCS: G0463

== ENCOUNTER 2018-05-24 10:41 | Emergency (ER) | payer MEDICARE, MEDICAID ==
[~2018-05-24] VITALS: Ht 160 cm; Wt 101.8 kg
[2018-05-24 10:46] VITALS: BP 141/92; TEMP 97.7
[2018-05-24] MEDS ORDERED: FASTIN30 MG PO (11:33)
[2018-05-24] MEDS ORDERED: NORCO 325 MG-51 TAB PO (12:28)
[2018-05-24 12:50] VITALS: PULSE 73
== END 2018-05-24 12:49 | disposition home or self-care (01) ==
LOC: COL.ER 10:41
DX: S93.602A Unspecified sprain of left foot, initial encounter (principal); M77.32 Calcaneal spur, left foot; G43.909 Migraine, unspecified, not intractable, without status migrainosus; F31.9 Bipolar disorder, unspecified; F41.9 Anxiety disorder, unspecified; J45.909 Unspecified asthma, uncomplicated; E66.01 Morbid (severe) obesity due to excess calories; Z68.39 Body mass index [BMI] 39.0-39.9, adult; Z87.891 Personal history of nicotine dependence; Z88.6 Allergy status to analgesic agent

== ENCOUNTER 2018-05-27 18:35 | Emergency (ER) | payer MEDICARE, MEDICAID ==
[~2018-05-27] VITALS: Ht 160 cm; Wt 101.8 kg
[2018-05-27 21:44] VITALS: BP 103/64; PULSE 65; TEMP 97.6
== END 2018-05-27 21:44 | disposition home or self-care (01) ==
LOC: COL.ER 18:35
DX: G43.909 Migraine, unspecified, not intractable, without status migrainosus (principal); Z79.899 Other long term (current) drug therapy
CPT/HCPCS: J0595; J1200; J2765

== ENCOUNTER 2018-05-30 20:14 | Emergency (ER) | payer MEDICARE, MEDICAID ==
[~2018-05-30] VITALS: Ht 160 cm; Wt 101.8 kg
[2018-05-30 20:17] VITALS: BP 117/64; TEMP 97.9
[2018-05-30 22:15] VITALS: PULSE 78
== END 2018-05-30 22:15 | disposition home or self-care (01) ==
LOC: COL.ER 20:14
DX: G43.909 Migraine, unspecified, not intractable, without status migrainosus (principal); Z79.51 Long term (current) use of inhaled steroids
CPT/HCPCS: J0595; J1200; J2550

== ENCOUNTER 2018-06-03 12:14 | Emergency (ER) | payer MEDICARE, MEDICAID ==
[~2018-06-03] VITALS: Ht 160 cm; Wt 101.8 kg
[2018-06-03 12:18] VITALS: TEMP 97.8
[2018-06-03 12:31] LABS: COLLECTION METHOD CLEAN CATCH
[2018-06-03 12:37] LABS: MUCOUS Present /lpf; PH 6 (5-8); URINE APPEARANCE Cloudy; URINE BACTERIA None Seen /hpf; URINE BILIRUBIN Negative (NEGATIVE); URINE BLOOD Negative (NEGATIVE); URINE COLOR Amber; URINE GLUCOSE Negative (NEGATIVE); URINE KETONE Negative (NEGATIVE); URINE LEUKOCYTE ESTERASE Negative (NEGATIVE); URINE NITRATE Negative (NEGATIVE); URINE PROTEIN(semi-quant) Negative (NEGATIVE); URINE RBC 0-2 /hpf; URINE UROBILINOGEN Negative (NEGATIVE)
[2018-06-03 15:27] VITALS: BP 125/79; PULSE 73
== END 2018-06-03 15:27 | disposition home or self-care (01) ==
LOC: COL.ER 12:14
PROVIDERS: Nurse Practitioner
DX: G43.909 Migraine, unspecified, not intractable, without status migrainosus (principal); M54.5 Low back pain; F31.9 Bipolar disorder, unspecified; F41.9 Anxiety disorder, unspecified; Z90.49 Acquired absence of other specified parts of digestive tract; Z87.891 Personal history of nicotine dependence; Z98.84 Bariatric surgery status; Z79.51 Long term (current) use of inhaled steroids
CPT/HCPCS: J2550; J7030

== ENCOUNTER 2018-06-09 18:45 | Emergency (ER) | payer MEDICARE, MEDICAID ==
[~2018-06-09] VITALS: Ht 160 cm; Wt 101.8 kg
[2018-06-09 18:47] VITALS: BP 137/75; TEMP 98.8
[2018-06-09 20:45] VITALS: PULSE 69
== END 2018-06-09 20:47 | disposition home or self-care (01) ==
LOC: COL.ER 18:45
DX: G43.909 Migraine, unspecified, not intractable, without status migrainosus (principal); Z98.84 Bariatric surgery status
CPT/HCPCS: J0595; J2550

== ENCOUNTER 2018-06-13 18:47 | Emergency (ER) | payer MEDICARE, MEDICAID ==
[~2018-06-13] VITALS: Ht 160 cm; Wt 101.8 kg
[2018-06-13 18:58] VITALS: BP 123/69; TEMP 98.9
[2018-06-13 21:30] VITALS: PULSE 67
== END 2018-06-13 21:30 | disposition home or self-care (01) ==
LOC: COL.ER 18:47
DX: G43.909 Migraine, unspecified, not intractable, without status migrainosus (principal); F31.9 Bipolar disorder, unspecified; F41.9 Anxiety disorder, unspecified; Z90.49 Acquired absence of other specified parts of digestive tract; Z98.84 Bariatric surgery status; Z87.891 Personal history of nicotine dependence; Z88.5 Allergy status to narcotic agent; Z79.51 Long term (current) use of inhaled steroids
CPT/HCPCS: J2550; J7030

== ENCOUNTER 2018-06-16 18:48 | Emergency (ER) | payer MEDICARE, MEDICAID ==
[~2018-06-16] VITALS: Ht 160 cm; Wt 101.8 kg
[2018-06-16 18:52] VITALS: BP 127/68; TEMP 98.4
[2018-06-16] MEDS ORDERED: CALCIUM CITRAT200 M2 (19:33)
[2018-06-16 20:55] VITALS: PULSE 75
== END 2018-06-16 20:55 | disposition home or self-care (01) ==
LOC: COL.ER 18:48
DX: G43.909 Migraine, unspecified, not intractable, without status migrainosus (principal); Z79.51 Long term (current) use of inhaled steroids
CPT/HCPCS: J0595; J2550

== ENCOUNTER 2018-06-18 00:28 | Emergency (ER) | payer MEDICARE, MEDICAID ==
[~2018-06-18] VITALS: Ht 160 cm; Wt 101.8 kg
[~2018-06-18 00:28] MED LIST changes: +CALCIUM CITRAT200 M2
[2018-06-18 02:17] VITALS: BP 102/64; PULSE 88; TEMP 98.4
== END 2018-06-18 02:17 | disposition home or self-care (01) ==
LOC: COL.ER 00:28
DX: H92.01 Otalgia, right ear (principal); R51 Headache; E66.9 Obesity, unspecified; Z98.84 Bariatric surgery status; Z86.69 Personal history of other diseases of the nervous system and sense organs; Z79.51 Long term (current) use of inhaled steroids
CPT/HCPCS: J1630; J1885

== ENCOUNTER 2018-06-20 18:43 | Emergency (ER) | payer MEDICARE, MEDICAID ==
[~2018-06-20] VITALS: Ht 160 cm; Wt 101.8 kg
[2018-06-20 18:47] VITALS: BP 120/56; PULSE 88; TEMP 98.3
== END 2018-06-20 20:16 | disposition home or self-care (01) ==
LOC: COL.ER 18:43
DX: G43.909 Migraine, unspecified, not intractable, without status migrainosus (principal); F32.9 Major depressive disorder, single episode, unspecified; Z98.84 Bariatric surgery status; Z79.51 Long term (current) use of inhaled steroids
CPT/HCPCS: J2550

== ENCOUNTER 2018-06-23 16:00 | Outpatient (RCR) | payer MEDICARE, MEDICAID ==
[2018-07-02] MEDS ORDERED: WELLBUTRIN 75MG75 MG PO (14:21)
[2018-07-19] MEDS ORDERED: TYLENOL 500MG500 MG PO (11:13)
[2018-07-19] MEDS ORDERED: PREDNISONE20 MG PO (12:10)
[2018-08-31] MEDS ORDERED: PROTONIX 40MG T40 MG PO (16:50)
[2018-09-06] MEDS ORDERED: FLEXERIL5 MG PO (19:30)
[2018-09-06] MEDS ORDERED: B-121000 MCG PO (19:33)
== END 2018-09-15 | disposition home or self-care (01) ==
LOC: MKS.ESL.PT
DX: M25.572 Pain in left ankle and joints of left foot (principal); G89.29 Other chronic pain

== ENCOUNTER 2018-06-24 20:57 | Emergency (ER) | payer MEDICARE, MEDICAID ==
[~2018-06-24] VITALS: Ht 160 cm; Wt 101.8 kg
[2018-06-24 21:03] VITALS: BP 111/65; PULSE 75; TEMP 97.7
== END 2018-06-25 01:07 | disposition left against medical advice (07) ==
LOC: COL.ER 20:57
DX: G43.909 Migraine, unspecified, not intractable, without status migrainosus (principal)

== ENCOUNTER 2018-06-25 21:24 | Emergency (ER) | payer MEDICARE, MEDICAID ==
[~2018-06-25] VITALS: Ht 160 cm; Wt 101.8 kg
[2018-06-25 22:08] VITALS: BP 139/82; PULSE 70; TEMP 97.3
== END 2018-06-25 22:08 | disposition home or self-care (01) ==
LOC: COL.ER 21:24
DX: G43.909 Migraine, unspecified, not intractable, without status migrainosus (principal); Z79.51 Long term (current) use of inhaled steroids
CPT/HCPCS: J0595; J2550

== ENCOUNTER 2018-06-29 19:58 | Emergency (ER) | payer MEDICARE, MEDICAID ==
[~2018-06-29] VITALS: Ht 160 cm; Wt 101.8 kg
[2018-06-29 20:05] VITALS: BP 128/74; TEMP 98.1
[2018-06-29 21:02] VITALS: PULSE 84
== END 2018-06-29 21:02 | disposition home or self-care (01) ==
LOC: COL.ER 19:58
DX: G43.909 Migraine, unspecified, not intractable, without status migrainosus (principal); F41.9 Anxiety disorder, unspecified; F31.9 Bipolar disorder, unspecified; Z87.891 Personal history of nicotine dependence; Z88.6 Allergy status to analgesic agent
CPT/HCPCS: J2550

== ENCOUNTER 2018-07-01 18:53 | Emergency (ER) | payer MEDICARE, MEDICAID ==
[~2018-07-01] VITALS: Ht 160 cm; Wt 101.8 kg
[2018-07-01 18:56] VITALS: BP 133/74; TEMP 98.6
[2018-07-01 19:40] VITALS: PULSE 69
[2018-07-02] MEDS ORDERED: WELLBUTRIN 75MG75 MG PO (14:21)
== END 2018-07-01 19:40 | disposition home or self-care (01) ==
LOC: COL.ER 18:53
DX: G43.909 Migraine, unspecified, not intractable, without status migrainosus (principal); F31.9 Bipolar disorder, unspecified; Z87.891 Personal history of nicotine dependence; Z90.49 Acquired absence of other specified parts of digestive tract; Z98.84 Bariatric surgery status; Z79.51 Long term (current) use of inhaled steroids
CPT/HCPCS: J1200; J2765

== ENCOUNTER → 2018-07-02 | Outpatient (CLI) | payer MEDICARE, MEDICAID ==
[~2018-07-02] VITALS: Ht 160 cm; Wt 108.6 kg
[~2018-07-02] MED LIST changes: +WELLBUTRIN 75MG75 MG PO
[2018-07-02 14:22] VITALS: BP 116/80; PULSE 92
== END ==
LOC: LIGHT 11:40
DX: E16.9 Disorder of pancreatic internal secretion, unspecified (principal); E78.5 Hyperlipidemia, unspecified; J45.909 Unspecified asthma, uncomplicated; E66.01 Morbid (severe) obesity due to excess calories; Z68.41 Body mass index [BMI] 40.0-44.9, adult; Z71.3 Dietary counseling and surveillance
CPT/HCPCS: G0463

== ENCOUNTER → 2018-07-02 | Outpatient (CLI) | payer MEDICARE, MEDICAID | LOC: BHSO 13:53 | DX: F31.81 Bipolar II disorder (principal) | CPT/HCPCS: G0463 ==

== ENCOUNTER 2018-07-04 20:56 | Emergency (ER) | payer MEDICARE, MEDICAID ==
[~2018-07-04] VITALS: Ht 160 cm; Wt 109.5 kg
[2018-07-04 21:06] VITALS: BP 125/82; TEMP 97.9
[2018-07-04 22:36] VITALS: PULSE 68
== END 2018-07-04 22:37 | disposition home or self-care (01) ==
LOC: COL.ER 20:56
DX: G43.909 Migraine, unspecified, not intractable, without status migrainosus (principal); Z98.84 Bariatric surgery status
CPT/HCPCS: J1200; J1630; J1885; J2550

== ENCOUNTER 2018-07-06 17:17 | Emergency (ER) | payer MEDICARE, MEDICAID ==
[~2018-07-06] VITALS: Ht 157.5 cm; Wt 109.5 kg
[2018-07-06 17:19] VITALS: TEMP 98.6
[2018-07-06 18:28] VITALS: BP 104/52; PULSE 78
== END 2018-07-06 18:29 | disposition home or self-care (01) ==
LOC: COL.ER 17:17
DX: G43.909 Migraine, unspecified, not intractable, without status migrainosus (principal); F31.9 Bipolar disorder, unspecified; F41.9 Anxiety disorder, unspecified; Z79.51 Long term (current) use of inhaled steroids; Z90.49 Acquired absence of other specified parts of digestive tract; Z87.891 Personal history of nicotine dependence
CPT/HCPCS: J1200; J2765

== ENCOUNTER 2018-07-14 19:20 | Emergency (ER) | payer MEDICARE, MEDICAID ==
[~2018-07-14] VITALS: Ht 160 cm; Wt 109.5 kg
[2018-07-14 19:26] VITALS: TEMP 98.8
[2018-07-14 21:00] VITALS: BP 110/78; PULSE 65
== END 2018-07-14 21:02 | disposition home or self-care (01) ==
LOC: COL.ER 19:20
DX: G43.909 Migraine, unspecified, not intractable, without status migrainosus (principal)
CPT/HCPCS: J1200; J1630; J1885; J2550

== ENCOUNTER 2018-07-19 10:43 | Emergency (ER) | payer MEDICARE, MEDICAID ==
[~2018-07-19] VITALS: Ht 160 cm; Wt 109.5 kg
[2018-07-19 10:59] VITALS: BP 116/61; TEMP 99.1
[2018-07-19] MEDS ORDERED: TYLENOL 500MG500 MG PO (11:13)
[2018-07-19] MEDS ORDERED: PREDNISONE20 MG PO (12:10)
[2018-07-19 12:33] VITALS: PULSE 80
== END 2018-07-19 12:30 | disposition home or self-care (01) ==
LOC: COL.ER 10:43
DX: J45.909 Unspecified asthma, uncomplicated (principal); J06.9 Acute upper respiratory infection, unspecified; R51 Headache; F31.9 Bipolar disorder, unspecified; E66.9 Obesity, unspecified; Z98.84 Bariatric surgery status; Z79.51 Long term (current) use of inhaled steroids; Z90.49 Acquired absence of other specified parts of digestive tract; Z87.891 Personal history of nicotine dependence; Z86.69 Personal history of other diseases of the nervous system and sense organs

== ENCOUNTER 2018-07-21 18:44 | Emergency (ER) | payer MEDICARE, MEDICAID ==
[~2018-07-21] VITALS: Ht 160 cm; Wt 109.1 kg
[~2018-07-21 18:44] MED LIST changes: +TYLENOL 500MG500 MG PO
[2018-07-21 18:53] VITALS: BP 130/76; TEMP 98.9
[2018-07-21 19:08] LABS: COLLECTION METHOD CLEAN CATCH
[2018-07-21 19:13] LABS: MUCOUS Present /lpf; PH 5 (5-8); URINE APPEARANCE Cloudy; URINE BACTERIA None Seen /hpf; URINE BILIRUBIN Negative (NEGATIVE); URINE BLOOD Negative (NEGATIVE); URINE COLOR Amber; URINE GLUCOSE Negative (NEGATIVE); URINE KETONE Negative (NEGATIVE); URINE LEUKOCYTE ESTERASE Negative (NEGATIVE); URINE NITRATE Negative (NEGATIVE); URINE PROTEIN(semi-quant) 1+ (NEGATIVE); URINE RBC 0-2 /hpf; URINE UROBILINOGEN Negative (NEGATIVE)
[2018-07-21 20:19] VITALS: PULSE 70
== END 2018-07-21 20:20 | disposition home or self-care (01) ==
LOC: COL.ER 18:44
PROVIDERS: Nurse Practitioner
DX: S20.229A Contusion of unspecified back wall of thorax, initial encounter (principal); S10.93XA Contusion of unspecified part of neck, initial encounter; G43.909 Migraine, unspecified, not intractable, without status migrainosus; F31.9 Bipolar disorder, unspecified; Z87.891 Personal history of nicotine dependence; Z79.51 Long term (current) use of inhaled steroids; W10.8XXA Fall (on) (from) other stairs and steps, initial encounter; Y92.241 Library as the place of occurrence of the external cause

== ENCOUNTER 2018-07-28 18:13 | Emergency (ER) | payer MEDICARE, MEDICAID ==
[~2018-07-28] VITALS: Ht 160 cm; Wt 109.5 kg
[2018-07-28 18:19] VITALS: BP 118/62; TEMP 97.7
[2018-07-28 20:57] VITALS: PULSE 78
== END 2018-07-28 20:58 | disposition home or self-care (01) ==
LOC: COL.ER 18:13
DX: G43.909 Migraine, unspecified, not intractable, without status migrainosus (principal); F31.9 Bipolar disorder, unspecified; F41.9 Anxiety disorder, unspecified; E66.01 Morbid (severe) obesity due to excess calories; Z68.41 Body mass index [BMI] 40.0-44.9, adult; Z87.891 Personal history of nicotine dependence; Z98.84 Bariatric surgery status; Z90.49 Acquired absence of other specified parts of digestive tract
CPT/HCPCS: J0595; J2550

== ENCOUNTER 2018-07-29 18:57 | Emergency (ER) | payer MEDICARE, MEDICAID ==
[~2018-07-29] VITALS: Ht 160 cm; Wt 109.5 kg
[2018-07-29 19:00] VITALS: BP 122/59; TEMP 98
[2018-07-29 20:46] VITALS: PULSE 69
== END 2018-07-29 20:46 | disposition home or self-care (01) ==
LOC: COL.ER 18:57
DX: G43.909 Migraine, unspecified, not intractable, without status migrainosus (principal); R11.2 Nausea with vomiting, unspecified; R19.7 Diarrhea, unspecified; F31.9 Bipolar disorder, unspecified; E66.01 Morbid (severe) obesity due to excess calories; Z68.42 Body mass index [BMI] 45.0-49.9, adult; Z98.84 Bariatric surgery status; Z88.5 Allergy status to narcotic agent; Z87.891 Personal history of nicotine dependence; Z90.49 Acquired absence of other specified parts of digestive tract; Z79.51 Long term (current) use of inhaled steroids
CPT/HCPCS: J1885; J2550

== ENCOUNTER 2018-08-04 20:45 | Emergency (ER) | payer MEDICARE, MEDICAID ==
[~2018-08-04] VITALS: Ht 160 cm; Wt 109.5 kg
[2018-08-04 20:52] VITALS: BP 106/55; TEMP 97.8
[2018-08-05 01:50] VITALS: PULSE 74
== END 2018-08-05 01:50 | disposition home or self-care (01) ==
LOC: COL.ER 20:45
DX: G43.909 Migraine, unspecified, not intractable, without status migrainosus (principal); F31.9 Bipolar disorder, unspecified; F41.9 Anxiety disorder, unspecified; Z87.891 Personal history of nicotine dependence; Z79.51 Long term (current) use of inhaled steroids
CPT/HCPCS: J1200; J2765

== ENCOUNTER 2018-08-15 15:10 | Emergency (ER) | payer MEDICARE, MEDICAID ==
[~2018-08-15] VITALS: Ht 160 cm; Wt 109.5 kg
[2018-08-15 15:19] VITALS: BP 126/65; TEMP 98.2
[2018-08-15 17:11] VITALS: PULSE 65
== END 2018-08-15 17:12 | disposition home or self-care (01) ==
LOC: COL.ER 15:10
DX: G43.909 Migraine, unspecified, not intractable, without status migrainosus (principal); F31.9 Bipolar disorder, unspecified; E66.9 Obesity, unspecified; J45.909 Unspecified asthma, uncomplicated; Z88.5 Allergy status to narcotic agent; Z98.84 Bariatric surgery status; Z79.51 Long term (current) use of inhaled steroids; Z90.49 Acquired absence of other specified parts of digestive tract; Z68.41 Body mass index [BMI] 40.0-44.9, adult
CPT/HCPCS: J0595; J2550

== ENCOUNTER 2018-08-23 10:35 | Emergency (ER) | payer MEDICARE, MEDICAID ==
[~2018-08-23] VITALS: Ht 160 cm; Wt 109.5 kg
[2018-08-23 10:45] VITALS: BP 123/62; PULSE 81; TEMP 98.8
== END 2018-08-23 12:55 | disposition home or self-care (01) ==
LOC: COL.ER 10:35
DX: G43.909 Migraine, unspecified, not intractable, without status migrainosus (principal)
CPT/HCPCS: J0595; J1885; J2550

== ENCOUNTER → 2018-08-26 | Outpatient (CLI) | payer MEDICARE, MEDICAID | LOC: BHSO 08:06 | DX: F31.81 Bipolar II disorder (principal) | CPT/HCPCS: G0463 ==

== ENCOUNTER 2018-08-28 18:35 | Emergency (ER) | payer MEDICARE, MEDICAID ==
[~2018-08-28] VITALS: Ht 160 cm; Wt 109.5 kg
[2018-08-28 18:48] VITALS: BP 114/58; PULSE 69; TEMP 98.4
== END 2018-08-28 20:32 | disposition left against medical advice (07) ==
LOC: COL.ER 18:35
DX: G43.909 Migraine, unspecified, not intractable, without status migrainosus (principal)

== ENCOUNTER 2018-08-31 14:15 | Emergency (ER) | payer MEDICARE, MEDICAID ==
[~2018-08-31] VITALS: Ht 160 cm; Wt 109.5 kg
[2018-08-31 14:19] VITALS: TEMP 98
[2018-08-31 15:36] LABS: COLLECTION METHOD CLEAN CATCH
[2018-08-31 15:39] LABS: BASO # 0.1 (0.0-0.2); BASO % 0.9 % (0.0-2.0); EOS # 0.6 (0.0-0.7); EOS % 5.3 % (0-4.0); GRAN # 4.8 (1.4-6.5); GRAN % 46.3 % (42.2-75.2); HEMATOCRIT 40.7 % (37.0-47.0); HEMOGLOBIN 13.3 g/dl (12.5-16.0); LYMPH # 4.2 (1.2-3.4); LYMPH % 40.2 % (20.0-51.0); MEAN CELL VOLUME 95 fl (80.0-100.0); MEAN CORPUSCULAR HEMOGLOBIN 31 pg (27.0-31.0); MEAN CORPUSCULAR HGB CONC 33 g/dl (33.0-37.0); MEAN PLATELET VOLUME 10.4 fl (7.4-10.4); MONO # 0.7 (0.1-0.6); MONO % 6.9 % (1.7-9.3); PLATELET COUNT 375 K/mm3 (130-400); REDCELL DISTRIBUTION WIDTH-CV 13.4 % (11.5-14.5)
[2018-08-31 15:43] LABS: MUCOUS Present /lpf; PH 5 (5-8); URINE APPEARANCE Hazy; URINE BACTERIA None Seen /hpf; URINE BILIRUBIN Negative (NEGATIVE); URINE BLOOD 3+ (NEGATIVE); URINE COLOR Yellow; URINE GLUCOSE Negative (NEGATIVE); URINE KETONE Negative (NEGATIVE); URINE LEUKOCYTE ESTERASE Negative (NEGATIVE); URINE NITRATE Negative (NEGATIVE); URINE PROTEIN(semi-quant) Negative (NEGATIVE); URINE UROBILINOGEN Negative (NEGATIVE)
[2018-08-31 16:30] LABS: ALANINE AMINOTRANSFERASE 33 U/L (9-52); ALBUMIN 3.6 gm/dL (3.5-5.0); ALKALINE PHOSPHATASE 47 U/L (50-136); ANION GAP 7 mmol/L (7-16); AST,SGOT 28 U/L (15-37); BILIRUBIN,TOTAL < 0.1 mg/dL (0.0-1.0); BLOOD UREA NITROGEN 17 mg/dL (7-17); CALCIUM 8.8 mg/dL (8.4-10.2); CARBON DIOXIDE 22 mmol/L (22-30); CHLORIDE 111 mmol/L (98-107); CREATININE, serum 0.49 (0.52-1.25); GLUCOSE 80 mg/dL (74-106); LIPASE 118 U/L (23-300); POTASSIUM 3.9 mmol/L (3.4-5.0); SODIUM 140 mmol/L (137-145); TOTAL PROTEIN 6.7 gm/dL (6.4-8.2)
[2018-08-31 16:31] LABS: C-REACTIVE PROTEIN < 0.5 mg/dL (0.0-0.9)
[2018-08-31] MEDS ORDERED: PROTONIX 40MG T40 MG PO (16:50)
[2018-08-31 17:11] VITALS: BP 113/75; PULSE 67
== END 2018-08-31 17:12 | disposition home or self-care (01) ==
LOC: COL.ER 14:15
PROVIDERS: Emergency Medicine; Physician Assistant
DX: G43.909 Migraine, unspecified, not intractable, without status migrainosus (principal); R10.11 Right upper quadrant pain; R10.13 Epigastric pain; F31.9 Bipolar disorder, unspecified; E66.01 Morbid (severe) obesity due to excess calories; K21.9 Gastro-esophageal reflux disease without esophagitis; Z79.51 Long term (current) use of inhaled steroids; Z87.891 Personal history of nicotine dependence; Z98.84 Bariatric surgery status; Z68.41 Body mass index [BMI] 40.0-44.9, adult
CPT/HCPCS: J1200; J2270; J2550; J7030

== ENCOUNTER 2018-09-06 17:18 | Emergency (ER) | payer MEDICARE, MEDICAID ==
[~2018-09-06] VITALS: Ht 160 cm; Wt 109.5 kg
[~2018-09-06 17:18] MED LIST changes: +PROTONIX 40MG T40 MG PO
[2018-09-06 17:21] VITALS: TEMP 98.1
[2018-09-06] MEDS ORDERED: FLEXERIL5 MG PO (19:30)
[2018-09-06] MEDS ORDERED: B-121000 MCG PO (19:33)
[2018-09-06 20:56] VITALS: BP 101/71; PULSE 76
== END 2018-09-06 21:02 | disposition home or self-care (01) ==
LOC: COL.ER 17:18
DX: G43.909 Migraine, unspecified, not intractable, without status migrainosus (principal); M26.601 Right temporomandibular joint disorder, unspecified; F31.9 Bipolar disorder, unspecified; Z90.49 Acquired absence of other specified parts of digestive tract; Z98.84 Bariatric surgery status; Z87.891 Personal history of nicotine dependence
CPT/HCPCS: J0595; J2550

== ENCOUNTER 2018-09-10 20:07 | Emergency (ER) | payer MEDICARE, MEDICAID ==
[~2018-09-10] VITALS: Ht 160 cm; Wt 109.5 kg
[~2018-09-10 20:07] MED LIST changes: +B-121000 MCG PO; +FLEXERIL5 MG PO
[2018-09-10 20:19] VITALS: BP 128/64; TEMP 97.8
[2018-09-10 22:07] VITALS: PULSE 68
== END 2018-09-10 22:07 | disposition home or self-care (01) ==
LOC: COL.ER 20:07
DX: G43.909 Migraine, unspecified, not intractable, without status migrainosus (principal)
CPT/HCPCS: J0595; J2550

== ENCOUNTER 2018-09-15 17:27 | Emergency (ER) | payer MEDICARE, MEDICAID ==
[~2018-09-15] VITALS: Ht 160 cm; Wt 109.5 kg
[2018-09-15 17:38] VITALS: BP 113/65; TEMP 98.3
[2018-09-15 18:49] VITALS: PULSE 79
== END 2018-09-15 18:50 | disposition home or self-care (01) ==
LOC: COL.ER 17:27
DX: G43.909 Migraine, unspecified, not intractable, without status migrainosus (principal); F31.9 Bipolar disorder, unspecified; F41.9 Anxiety disorder, unspecified; Z79.51 Long term (current) use of inhaled steroids; Z87.891 Personal history of nicotine dependence; Z98.84 Bariatric surgery status; Z90.49 Acquired absence of other specified parts of digestive tract
CPT/HCPCS: J2550; J2765

== ENCOUNTER 2018-09-20 19:36 | Emergency (ER) | payer MEDICARE, MEDICAID ==
[~2018-09-20] VITALS: Ht 160 cm; Wt 109.5 kg
[2018-09-20 19:39] VITALS: BP 114/57; TEMP 98.8
[2018-09-20] MEDS ORDERED: WELLBUTRIN 100100 MG PO (20:03)
[2018-09-20 20:24] VITALS: PULSE 84
== END 2018-09-20 20:25 | disposition home or self-care (01) ==
LOC: COL.ER 19:36
DX: G43.909 Migraine, unspecified, not intractable, without status migrainosus (principal); J45.909 Unspecified asthma, uncomplicated; Z90.49 Acquired absence of other specified parts of digestive tract; Z79.51 Long term (current) use of inhaled steroids
CPT/HCPCS: J0595; J2550

== ENCOUNTER 2018-09-22 10:39 | Emergency (ER) | payer MEDICARE, MEDICAID ==
[~2018-09-22] VITALS: Ht 160 cm; Wt 109.5 kg
[~2018-09-22 10:39] MED LIST changes: +WELLBUTRIN 100100 MG PO
[2018-09-22 10:48] VITALS: BP 112/58; PULSE 85; TEMP 98.8
[2018-09-22] MEDS ORDERED: PREDNISONE20 MG PO (12:15)
== END 2018-09-22 12:32 | disposition home or self-care (01) ==
LOC: COL.ER 10:39
DX: M54.89 Other dorsalgia (principal); F31.9 Bipolar disorder, unspecified; F41.9 Anxiety disorder, unspecified; Z79.51 Long term (current) use of inhaled steroids; Z98.84 Bariatric surgery status
CPT/HCPCS: J1885

== ENCOUNTER 2018-09-27 18:52 | Emergency (ER) | payer MEDICARE, MEDICAID ==
[~2018-09-27] VITALS: Ht 160 cm; Wt 109.5 kg
[2018-09-27 19:14] VITALS: BP 120/64; PULSE 89; TEMP 97.9
== END 2018-09-27 20:55 | disposition left against medical advice (07) ==
LOC: COL.ER 18:52
DX: G43.909 Migraine, unspecified, not intractable, without status migrainosus (principal)

== ENCOUNTER 2018-09-28 17:50 | Emergency (ER) | payer MEDICARE, MEDICAID ==
[~2018-09-28] VITALS: Ht 160 cm; Wt 109.5 kg
[2018-09-28 18:06] VITALS: TEMP 97.4
[2018-09-28 19:19] VITALS: BP 114/66; PULSE 92
== END 2018-09-28 19:20 | disposition home or self-care (01) ==
LOC: COL.ER 17:50
DX: G43.909 Migraine, unspecified, not intractable, without status migrainosus (principal); F31.9 Bipolar disorder, unspecified; F41.9 Anxiety disorder, unspecified; Z79.51 Long term (current) use of inhaled steroids; Z87.891 Personal history of nicotine dependence
CPT/HCPCS: J1200; J1885; J2550

== ENCOUNTER 2018-10-05 07:23 | Emergency (ER) | payer MEDICARE, MEDICAID ==
[~2018-10-05] VITALS: Ht 160 cm; Wt 113.3 kg
[2018-10-05 07:31] VITALS: BP 117/55; PULSE 73; TEMP 97.4
[2018-10-06] MEDS ORDERED: LIORESAL 1010 MG/TAB PO (21:39)
== END 2018-10-05 08:55 | disposition home or self-care (01) ==
LOC: COL.ER 07:23
DX: G43.909 Migraine, unspecified, not intractable, without status migrainosus (principal); Z79.51 Long term (current) use of inhaled steroids
CPT/HCPCS: J1200; J2550

== ENCOUNTER 2018-10-06 20:10 | Emergency (ER) | payer MEDICARE, MEDICAID ==
[~2018-10-06] VITALS: Ht 160 cm; Wt 113.2 kg
[2018-10-06 20:27] VITALS: BP 132/70; TEMP 97.5
[2018-10-06] MEDS ORDERED: LIORESAL 1010 MG/TAB PO (21:39)
[2018-10-06 22:40] VITALS: PULSE 71
== END 2018-10-06 22:40 | disposition home or self-care (01) ==
LOC: COL.ER 20:10
DX: G43.909 Migraine, unspecified, not intractable, without status migrainosus (principal); F31.9 Bipolar disorder, unspecified; J45.909 Unspecified asthma, uncomplicated
CPT/HCPCS: J0595; J2550

== ENCOUNTER 2018-10-12 17:55 | Emergency (ER) | payer MEDICARE, MEDICAID ==
[~2018-10-12] VITALS: Ht 160 cm; Wt 113.2 kg
[2018-10-12 18:07] VITALS: BP 109/66; PULSE 76; TEMP 98.7
[2018-10-13] MEDS ORDERED: ZOFRAN ODT4 MG PO (10:06)
== END 2018-10-12 20:21 | disposition left against medical advice (07) ==
LOC: COL.ER 17:55
DX: G43.909 Migraine, unspecified, not intractable, without status migrainosus (principal)

== ENCOUNTER 2018-10-13 09:02 | Emergency (ER) | payer MEDICARE, MEDICAID ==
[~2018-10-13] VITALS: Ht 160 cm; Wt 113.2 kg
[2018-10-13 09:17] VITALS: TEMP 98.9
[2018-10-13] MEDS ORDERED: ZOFRAN ODT4 MG PO (10:06)
[2018-10-13 10:54] VITALS: BP 100/73; PULSE 68
== END 2018-10-13 10:37 | disposition home or self-care (01) ==
LOC: COL.ER 09:02
DX: G43.909 Migraine, unspecified, not intractable, without status migrainosus (principal); K21.9 Gastro-esophageal reflux disease without esophagitis; F31.9 Bipolar disorder, unspecified; J45.909 Unspecified asthma, uncomplicated; Z79.51 Long term (current) use of inhaled steroids; Z87.891 Personal history of nicotine dependence; Z98.84 Bariatric surgery status
CPT/HCPCS: J2550

== ENCOUNTER 2018-10-23 19:35 | Emergency (ER) | payer MEDICARE, MEDICAID ==
[~2018-10-23] VITALS: Ht 160 cm; Wt 113.2 kg
[2018-10-23 19:45] VITALS: BP 110/60; TEMP 97.8
[2018-10-23] MEDS ORDERED: EFFEXOR 75M75 MG/TAB PO (20:08)
[2018-10-23 21:15] VITALS: PULSE 76
== END 2018-10-23 21:15 | disposition home or self-care (01) ==
LOC: COL.ER 19:35
DX: G43.909 Migraine, unspecified, not intractable, without status migrainosus (principal); Z79.51 Long term (current) use of inhaled steroids
CPT/HCPCS: J0595; J1200; J2550

== ENCOUNTER 2018-10-27 11:16 | Emergency (ER) | payer OTHER, MEDICARE, MEDICAID ==
[~2018-10-27] VITALS: Ht 160 cm; Wt 113.2 kg
[~2018-10-27 11:16] MED LIST changes: +EFFEXOR 75M75 MG/TAB PO
[2018-10-27 11:25] VITALS: BP 122/75; TEMP 98.9
[2018-10-27 14:01] VITALS: PULSE 76
== END 2018-10-27 14:02 | disposition home or self-care (01) ==
LOC: COL.ER 11:16
DX: S16.1XXA Strain of muscle, fascia and tendon at neck level, initial encounter (principal); G89.29 Other chronic pain; M54.9 Dorsalgia, unspecified; G43.909 Migraine, unspecified, not intractable, without status migrainosus; Z98.84 Bariatric surgery status; Z88.6 Allergy status to analgesic agent; Z79.51 Long term (current) use of inhaled steroids; V47.5XXA Car driver injured in collision with fixed or stationary object in traffic accident, initial encounter

== ENCOUNTER 2018-10-28 19:56 | Emergency (ER) | payer MEDICARE, MEDICAID ==
[~2018-10-28] VITALS: Ht 160 cm; Wt 113.2 kg
[2018-10-28 20:09] VITALS: TEMP 97.6
[2018-10-29 00:49] VITALS: BP 123/83; PULSE 64
== END 2018-10-29 00:40 | disposition home or self-care (01) ==
LOC: COL.ER 19:56
DX: R51 Headache (principal); J45.909 Unspecified asthma, uncomplicated; F32.9 Major depressive disorder, single episode, unspecified; F41.9 Anxiety disorder, unspecified; Z90.49 Acquired absence of other specified parts of digestive tract; Z98.84 Bariatric surgery status; Z87.891 Personal history of nicotine dependence
CPT/HCPCS: J1200; J2550

== ENCOUNTER 2018-11-03 18:37 | Emergency (ER) | payer MEDICARE, MEDICAID ==
[~2018-11-03] VITALS: Ht 160 cm; Wt 113.2 kg
[2018-11-03 18:42] VITALS: BP 136/70; TEMP 98.3
[2018-11-03 20:43] VITALS: PULSE 71
== END 2018-11-03 20:45 | disposition home or self-care (01) ==
LOC: COL.ER 18:37
DX: G43.909 Migraine, unspecified, not intractable, without status migrainosus (principal); F32.9 Major depressive disorder, single episode, unspecified; F41.9 Anxiety disorder, unspecified; Z90.49 Acquired absence of other specified parts of digestive tract; Z98.84 Bariatric surgery status; Z87.891 Personal history of nicotine dependence; Z79.51 Long term (current) use of inhaled steroids
CPT/HCPCS: J1200; J2550

== ENCOUNTER 2018-11-09 10:51 | Emergency (ER) | payer MEDICARE, MEDICAID ==
[~2018-11-09] VITALS: Ht 243.8 cm; Wt 113.2 kg
[2018-11-09 10:59] VITALS: TEMP 97
[2018-11-09] MEDS ORDERED: PHENERGAN 25 TA25 MG PO (12:05)
[2018-11-09] MEDS ORDERED: FIORICET 325 MG1 TA1 PO (12:05)
[2018-11-09 12:33] VITALS: BP 127/80; PULSE 71
== END 2018-11-09 12:43 | disposition home or self-care (01) ==
LOC: COL.ER 10:51
DX: G43.909 Migraine, unspecified, not intractable, without status migrainosus (principal); F32.9 Major depressive disorder, single episode, unspecified; F41.9 Anxiety disorder, unspecified; Z90.49 Acquired absence of other specified parts of digestive tract; Z98.84 Bariatric surgery status; Z79.51 Long term (current) use of inhaled steroids
CPT/HCPCS: J1200; J2550

== ENCOUNTER 2018-11-14 16:19 | Emergency (ER) | payer MEDICARE, MEDICAID ==
[~2018-11-14] VITALS: Ht 160 cm; Wt 113.2 kg
[2018-11-14 16:30] VITALS: BP 125/71; TEMP 98.7
[2018-11-14 17:40] VITALS: PULSE 75
== END 2018-11-14 17:36 | disposition home or self-care (01) ==
LOC: COL.ER 16:19
DX: G43.909 Migraine, unspecified, not intractable, without status migrainosus (principal)
CPT/HCPCS: J1200; J1885; J2550

== ENCOUNTER 2018-11-20 18:48 | Emergency (ER) | payer MEDICARE, MEDICAID ==
[~2018-11-20] VITALS: Ht 243.8 cm; Wt 113.2 kg
[2018-11-20 18:51] VITALS: BP 124/67; PULSE 96; TEMP 97.9
== END 2018-11-20 19:53 | disposition home or self-care (01) ==
LOC: COL.ER 18:48
DX: G43.909 Migraine, unspecified, not intractable, without status migrainosus (principal); J45.909 Unspecified asthma, uncomplicated; F41.9 Anxiety disorder, unspecified; F32.9 Major depressive disorder, single episode, unspecified; Z90.49 Acquired absence of other specified parts of digestive tract; Z98.84 Bariatric surgery status; Z88.5 Allergy status to narcotic agent; Z87.891 Personal history of nicotine dependence
CPT/HCPCS: J1200; J2765

== ENCOUNTER 2018-11-23 20:10 | Emergency (ER) | payer MEDICARE, MEDICAID ==
[~2018-11-23] VITALS: Ht 160 cm; Wt 113.2 kg
[2018-11-23 20:27] VITALS: BP 130/58; TEMP 97.2
[2018-11-23 21:35] VITALS: PULSE 78
== END 2018-11-23 21:37 | disposition home or self-care (01) ==
LOC: COL.ER 20:10
DX: R51 Headache (principal); J45.909 Unspecified asthma, uncomplicated; F41.9 Anxiety disorder, unspecified; F32.9 Major depressive disorder, single episode, unspecified; Z90.49 Acquired absence of other specified parts of digestive tract; Z98.84 Bariatric surgery status; Z87.891 Personal history of nicotine dependence; Z88.6 Allergy status to analgesic agent; Z79.51 Long term (current) use of inhaled steroids

== ENCOUNTER → 2018-11-26 | Outpatient (CLI) | payer MEDICARE, MEDICAID ==
[~2018-11-26] VITALS: Ht 160 cm; Wt 109.1 kg
[2018-11-26 15:34] VITALS: BP 118/76; PULSE 92
== END ==
LOC: LIGHT
DX: E16.9 Disorder of pancreatic internal secretion, unspecified (principal); E78.5 Hyperlipidemia, unspecified; J45.909 Unspecified asthma, uncomplicated; E66.01 Morbid (severe) obesity due to excess calories; Z68.41 Body mass index [BMI] 40.0-44.9, adult; Z71.3 Dietary counseling and surveillance
CPT/HCPCS: G0463

== ENCOUNTER 2018-12-01 20:25 | Emergency (ER) | payer MEDICARE, MEDICAID ==
[~2018-12-01] VITALS: Ht 160 cm; Wt 109.1 kg
[2018-12-01 20:34] VITALS: BP 116/67; TEMP 97.6
[2018-12-01 22:06] VITALS: PULSE 84
== END 2018-12-01 22:10 | disposition home or self-care (01) ==
LOC: COL.ER 20:25
DX: G43.909 Migraine, unspecified, not intractable, without status migrainosus (principal); Z79.899 Other long term (current) drug therapy
CPT/HCPCS: J0595; J2550

== ENCOUNTER → 2018-12-06 | Emergency (ER) | payer MEDICARE, MEDICAID ==
[~2018-12-06] MED LIST changes: +AMITRIPTYLINE H50 M1 PO; +TOPAMAX 25MG25 M1 PO
== END ==
LOC: COL.ER 14:34
DX: Z72.89 Other problems related to lifestyle (principal)

== ENCOUNTER 2018-12-07 11:19 | Emergency (ER) | payer MEDICARE, MEDICAID ==
[~2018-12-07] VITALS: Ht 160 cm; Wt 109.1 kg
[2018-12-07 11:43] VITALS: BP 134/93; TEMP 99.2
[2018-12-07 12:48] VITALS: PULSE 65
== END 2018-12-07 13:10 | disposition home or self-care (01) ==
LOC: COL.ER 11:19
DX: G43.909 Migraine, unspecified, not intractable, without status migrainosus (principal); Z90.49 Acquired absence of other specified parts of digestive tract; Z79.51 Long term (current) use of inhaled steroids
CPT/HCPCS: J0595; J2550

== ENCOUNTER 2018-12-11 20:53 | Emergency (ER) | payer MEDICARE, MEDICAID ==
[~2018-12-11] VITALS: Ht 160 cm; Wt 109.1 kg
[2018-12-11 21:03] VITALS: BP 129/68; TEMP 98.3
[2018-12-11] MEDS ORDERED: NEURONTIN300 MG/CAP PO (22:17)
[2018-12-12 00:22] VITALS: PULSE 65
== END 2018-12-12 00:22 | disposition home or self-care (01) ==
LOC: COL.ER 20:53
DX: G43.909 Migraine, unspecified, not intractable, without status migrainosus (principal); E66.9 Obesity, unspecified; F32.9 Major depressive disorder, single episode, unspecified; F41.9 Anxiety disorder, unspecified; Z68.41 Body mass index [BMI] 40.0-44.9, adult; Z87.891 Personal history of nicotine dependence; Z90.49 Acquired absence of other specified parts of digestive tract; Z98.84 Bariatric surgery status
CPT/HCPCS: J0595; J2550

== ENCOUNTER 2018-12-14 19:46 | Emergency (ER) | payer MEDICARE, MEDICAID ==
[~2018-12-14] VITALS: Ht 160 cm; Wt 109.1 kg
[2018-12-14 19:51] VITALS: TEMP 98.9
[2018-12-14 21:19] VITALS: BP 114/64; PULSE 83
== END 2018-12-14 21:19 | disposition home or self-care (01) ==
LOC: COL.ER 19:46
DX: G43.909 Migraine, unspecified, not intractable, without status migrainosus (principal); F32.9 Major depressive disorder, single episode, unspecified; Z90.49 Acquired absence of other specified parts of digestive tract; Z88.5 Allergy status to narcotic agent; Z98.84 Bariatric surgery status; Z87.891 Personal history of nicotine dependence; Z79.51 Long term (current) use of inhaled steroids
CPT/HCPCS: J1200; J2550

== ENCOUNTER 2018-12-16 18:02 | Emergency (ER) | payer MEDICARE, MEDICAID ==
[~2018-12-16] VITALS: Ht 160 cm; Wt 109.1 kg
[2018-12-16 18:05] VITALS: BP 105/55; TEMP 98.2
[2018-12-16 19:10] VITALS: PULSE 73
== END 2018-12-16 19:11 | disposition home or self-care (01) ==
LOC: COL.ER 18:02
DX: G43.909 Migraine, unspecified, not intractable, without status migrainosus (principal); Z90.49 Acquired absence of other specified parts of digestive tract; Z87.891 Personal history of nicotine dependence; Z98.84 Bariatric surgery status
CPT/HCPCS: J0595; J2550

== ENCOUNTER 2018-12-23 18:56 | Emergency (ER) | payer MEDICARE, MEDICAID ==
[~2018-12-23] VITALS: Ht 160 cm; Wt 109.1 kg
[2018-12-23 18:59] VITALS: BP 125/72; TEMP 97.7
[2018-12-23 21:15] VITALS: PULSE 75
== END 2018-12-23 21:16 | disposition home or self-care (01) ==
LOC: COL.ER 18:56
DX: G43.909 Migraine, unspecified, not intractable, without status migrainosus (principal); Z98.84 Bariatric surgery status; Z88.5 Allergy status to narcotic agent; Z79.51 Long term (current) use of inhaled steroids
CPT/HCPCS: J1200; J2550

== ENCOUNTER 2018-12-28 20:30 | Emergency (ER) | payer MEDICARE, MEDICAID ==
[~2018-12-28] VITALS: Ht 160 cm; Wt 109.1 kg
[2018-12-28 20:35] VITALS: BP 119/58; TEMP 97.9
[2018-12-28 21:31] VITALS: PULSE 75
== END 2018-12-28 21:37 | disposition home or self-care (01) ==
LOC: COL.ER 20:30
DX: G43.909 Migraine, unspecified, not intractable, without status migrainosus (principal); F32.9 Major depressive disorder, single episode, unspecified; F41.9 Anxiety disorder, unspecified; E66.9 Obesity, unspecified; Z79.51 Long term (current) use of inhaled steroids; Z87.891 Personal history of nicotine dependence; Z90.49 Acquired absence of other specified parts of digestive tract
CPT/HCPCS: J0780; J1200; J1885

== ENCOUNTER 2019-01-04 13:53 | Outpatient (RCR) | payer MEDICARE, MEDICAID, OTHER ==
[~2019-01-04 13:53] MED LIST changes: -TOPAMAX 25MG25 M1 PO
[2019-02-01] MEDS ORDERED: EMGALITY120 MG/1 M SQ (21:20)
[2019-02-09] MEDS ORDERED: AMOXICILLIN 8751 TAB PO (21:13)
[2019-03-04] MEDS ORDERED: TOPAMAX 25MG25 M1 PO (08:59)
== END 2019-02-18 12:44 | disposition home or self-care (01) ==
LOC: WSC 13:53
DX: M25.572 Pain in left ankle and joints of left foot (principal)

== ENCOUNTER 2019-01-04 18:07 | Emergency (ER) | payer MEDICARE, MEDICAID, OTHER ==
[~2019-01-04] VITALS: Ht 160 cm; Wt 109.1 kg
[~2019-01-04 18:07] MED LIST changes: +TOPAMAX 25MG25 M1 PO
[2019-01-04 18:16] VITALS: BP 115/61; TEMP 97.6
[2019-01-04 19:08] VITALS: PULSE 68
== END 2019-01-04 19:10 | disposition home or self-care (01) ==
LOC: COL.ER 18:07
DX: S06.0X0A Concussion without loss of consciousness, initial encounter (principal); S39.012A Strain of muscle, fascia and tendon of lower back, initial encounter; R40.2412 Glasgow coma scale score 13-15, at arrival to emergency department; F17.210 Nicotine dependence, cigarettes, uncomplicated; G43.909 Migraine, unspecified, not intractable, without status migrainosus; W01.0XXA Fall on same level from slipping, tripping and stumbling without subsequent striking against object, initial encounter; Y92.009 Unspecified place in unspecified non-institutional (private) residence as the place of occurrence of the external cause
CPT/HCPCS: J1885

== ENCOUNTER 2019-02-01 19:59 | Emergency (ER) | payer MEDICARE, MEDICAID ==
[~2019-02-01] VITALS: Ht 160 cm; Wt 109.1 kg
[2019-02-01 20:01] VITALS: BP 107/63; TEMP 97.1
[2019-02-01] MEDS ORDERED: EMGALITY120 MG/1 M SQ (21:20)
[2019-02-01 21:56] VITALS: PULSE 78
== END 2019-02-01 21:54 | disposition home or self-care (01) ==
LOC: COL.ER 19:59
DX: G43.909 Migraine, unspecified, not intractable, without status migrainosus (principal); Z79.51 Long term (current) use of inhaled steroids
CPT/HCPCS: J0595; J2550

== ENCOUNTER 2019-02-09 19:20 | Emergency (ER) | payer MEDICARE, MEDICAID ==
[~2019-02-09] VITALS: Ht 160 cm; Wt 109.1 kg
[~2019-02-09 19:20] MED LIST changes: +EMGALITY120 MG/1 M SQ
[2019-02-09 19:24] VITALS: TEMP 97.9
[2019-02-09] MEDS ORDERED: AMOXICILLIN 8751 TAB PO (21:13)
[2019-02-09 21:39] VITALS: BP 120/78; PULSE 74
== END 2019-02-09 21:40 | disposition home or self-care (01) ==
LOC: COL.ER 19:20
DX: K08.89 Other specified disorders of teeth and supporting structures (principal); H92.01 Otalgia, right ear; Z79.51 Long term (current) use of inhaled steroids
CPT/HCPCS: J0595

== ENCOUNTER → 2019-02-18 | Outpatient (CLI) | payer MEDICARE, MEDICAID ==
[~2019-02-18] MED LIST changes: +AMOXICILLIN 8751 TAB PO
== END ==
LOC: BHSO 09:27
DX: F31.81 Bipolar II disorder (principal)
CPT/HCPCS: G0463

== ENCOUNTER 2019-02-22 19:33 | Emergency (ER) | payer MEDICARE, MEDICAID ==
[~2019-02-22] VITALS: Ht 160 cm; Wt 109.1 kg
[2019-02-22 19:50] VITALS: BP 118/55; TEMP 98.4
[2019-02-22 21:26] VITALS: PULSE 76
== END 2019-02-22 21:27 | disposition home or self-care (01) ==
LOC: COL.ER 19:33
DX: R51 Headache (principal); J45.909 Unspecified asthma, uncomplicated; Z79.51 Long term (current) use of inhaled steroids
CPT/HCPCS: J2550

== ENCOUNTER 2019-02-28 18:02 | Emergency (ER) | payer MEDICARE, MEDICAID ==
[~2019-02-28] VITALS: Ht 160 cm; Wt 109.1 kg
[~2019-02-28 18:02] MED LIST changes: -TOPAMAX 25MG25 M1 PO
[2019-02-28 18:07] VITALS: BP 121/73
[2019-02-28 19:35] VITALS: PULSE 38; TEMP 97.7
[2019-03-04] MEDS ORDERED: TOPAMAX 25MG25 M1 PO (08:59)
== END 2019-02-28 19:40 | disposition home or self-care (01) ==
LOC: COL.ER 18:02
DX: G43.909 Migraine, unspecified, not intractable, without status migrainosus (principal); Z79.51 Long term (current) use of inhaled steroids
CPT/HCPCS: J0595; J2550

== ENCOUNTER → 2019-03-04 | Outpatient (CLI) | payer MEDICARE, MEDICAID ==
[2019-01-07 16:05] VITALS: BP 136/88; PULSE 92
[~2019-03-04] VITALS: Ht 160 cm; Wt 114.3 kg
[~2019-03-04] MED LIST changes: +TOPAMAX 25MG25 M1 PO
[2019-03-04 09:00] VITALS: BP 110/66; PULSE 64
== END ==
LOC: LIGHT 01-07 14:38
DX: E16.9 Disorder of pancreatic internal secretion, unspecified (principal); E78.5 Hyperlipidemia, unspecified; J45.909 Unspecified asthma, uncomplicated; E66.01 Morbid (severe) obesity due to excess calories; Z68.41 Body mass index [BMI] 40.0-44.9, adult; Z71.3 Dietary counseling and surveillance
CPT/HCPCS: G0463

== ENCOUNTER 2019-03-10 18:45 | Emergency (ER) | payer MEDICARE, MEDICAID ==
[~2019-03-10] VITALS: Ht 160 cm; Wt 109.1 kg
[2019-03-10 18:57] VITALS: TEMP 98.1
[2019-03-10 20:43] VITALS: BP 105/65; PULSE 85
== END 2019-03-10 20:45 | disposition home or self-care (01) ==
LOC: COL.ER 18:45
DX: R51 Headache (principal); J45.909 Unspecified asthma, uncomplicated; F32.9 Major depressive disorder, single episode, unspecified; F41.9 Anxiety disorder, unspecified; Z88.6 Allergy status to analgesic agent
CPT/HCPCS: J1200; J2765

== ENCOUNTER 2019-03-12 19:21 | Emergency (ER) | payer MEDICARE, MEDICAID ==
[~2019-03-12] VITALS: Ht 160 cm; Wt 109.1 kg
[2019-03-12 19:40] VITALS: BP 110/71; TEMP 98.3
[2019-03-12 20:37] VITALS: PULSE 78
== END 2019-03-12 20:40 | disposition home or self-care (01) ==
LOC: COL.ER 19:21
DX: G43.909 Migraine, unspecified, not intractable, without status migrainosus (principal)
CPT/HCPCS: J0595; J2550

== ENCOUNTER → 2019-03-17 | Outpatient (CLI) | payer MEDICARE, MEDICAID | LOC: MHCPAIN 13:37 | DX: G89.29 Other chronic pain (principal); M54.12 Radiculopathy, cervical region; M47.812 Spondylosis without myelopathy or radiculopathy, cervical region | CPT/HCPCS: G0463 ==

== ENCOUNTER 2019-03-18 11:02 | Emergency (ER) | payer MEDICARE, MEDICAID ==
[~2019-03-18] VITALS: Ht 160 cm; Wt 109.1 kg
[2019-03-18 11:11] VITALS: BP 123/72; TEMP 98.2
[2019-03-18 14:21] VITALS: PULSE 70
== END 2019-03-18 14:23 | disposition home or self-care (01) ==
LOC: COL.ER 11:02
DX: G43.909 Migraine, unspecified, not intractable, without status migrainosus (principal); M54.9 Dorsalgia, unspecified; G89.29 Other chronic pain; Z98.890 Other specified postprocedural states
CPT/HCPCS: J0595; J2550

== ENCOUNTER 2019-03-23 18:55 | Emergency (ER) | payer MEDICARE, MEDICAID ==
[~2019-03-23] VITALS: Ht 160 cm; Wt 109.1 kg
[2019-03-23 19:08] VITALS: BP 112/72; TEMP 99
[2019-03-23 20:50] VITALS: PULSE 76
== END 2019-03-23 20:50 | disposition home or self-care (01) ==
LOC: COL.ER 18:55
DX: G43.909 Migraine, unspecified, not intractable, without status migrainosus (principal); F32.9 Major depressive disorder, single episode, unspecified; F41.9 Anxiety disorder, unspecified; J45.909 Unspecified asthma, uncomplicated; Z98.84 Bariatric surgery status; Z90.89 Acquired absence of other organs; Z79.51 Long term (current) use of inhaled steroids
CPT/HCPCS: J1200; J1885; J2550

== ENCOUNTER 2019-04-01 14:44 | Emergency (ER) | payer MEDICARE, MEDICAID ==
[~2019-04-01] VITALS: Ht 160 cm; Wt 109.1 kg
[2019-04-01 14:51] VITALS: BP 137/82; TEMP 98.3
[2019-04-01 16:00] VITALS: PULSE 74
== END 2019-04-01 16:00 | disposition home or self-care (01) ==
LOC: COL.ER 14:44
DX: G43.909 Migraine, unspecified, not intractable, without status migrainosus (principal); F32.9 Major depressive disorder, single episode, unspecified; F41.9 Anxiety disorder, unspecified; J45.909 Unspecified asthma, uncomplicated; Z87.891 Personal history of nicotine dependence; Z90.89 Acquired absence of other organs; Z98.84 Bariatric surgery status; Z88.5 Allergy status to narcotic agent; Z79.51 Long term (current) use of inhaled steroids
CPT/HCPCS: J0595; J2550

== ENCOUNTER 2019-04-13 19:05 | Emergency (ER) | payer MEDICARE, MEDICAID ==
[~2019-04-13] VITALS: Ht 160 cm; Wt 109.1 kg
[2019-04-13 19:11] VITALS: TEMP 98.4
[2019-04-13 19:39] LABS: COLLECTION METHOD CLEAN CATCH
[2019-04-13 19:54] LABS: MUCOUS Present /lpf; PH 5 (5-8); URINE APPEARANCE Cloudy; URINE BACTERIA Rare /hpf; URINE BILIRUBIN Negative (NEGATIVE); URINE BLOOD Negative (NEGATIVE); URINE CALCIUM OXALATE CRYSTAL Present /hpf; URINE COLOR Amber; URINE GLUCOSE Negative (NEGATIVE); URINE KETONE Negative (NEGATIVE); URINE LEUKOCYTE ESTERASE Negative (NEGATIVE); URINE NITRATE Negative (NEGATIVE); URINE PROTEIN(semi-quant) Negative (NEGATIVE); URINE UROBILINOGEN Negative (NEGATIVE)
[2019-04-13] MEDS ORDERED: OMNICEF 300MG300 MG PO (20:27)
[2019-04-13 20:37] VITALS: BP 125/60; PULSE 85
== END 2019-04-13 20:41 | disposition home or self-care (01) ==
LOC: COL.ER 19:05
PROVIDERS: Emergency Medicine
DX: N39.0 Urinary tract infection, site not specified (principal); N90.89 Other specified noninflammatory disorders of vulva and perineum; Z79.51 Long term (current) use of inhaled steroids

== ENCOUNTER 2019-04-20 18:59 | Emergency (ER) | payer MEDICARE, MEDICAID ==
[~2019-04-20] VITALS: Ht 160 cm; Wt 109.1 kg
[~2019-04-20 18:59] MED LIST changes: +OMNICEF 300MG300 MG PO
[2019-04-20 19:03] VITALS: BP 145/70; TEMP 98.1
[2019-04-20 20:04] VITALS: PULSE 64
== END 2019-04-20 20:05 | disposition home or self-care (01) ==
LOC: COL.ER 18:59
DX: G43.909 Migraine, unspecified, not intractable, without status migrainosus (principal); J45.909 Unspecified asthma, uncomplicated; F41.9 Anxiety disorder, unspecified; F32.9 Major depressive disorder, single episode, unspecified; Z87.891 Personal history of nicotine dependence; Z79.51 Long term (current) use of inhaled steroids
CPT/HCPCS: J1200; J2550

== ENCOUNTER 2019-05-10 16:55 | Emergency (ER) | payer MEDICARE, MEDICAID ==
[~2019-05-10] VITALS: Ht 160 cm; Wt 109.1 kg
[2019-05-10 17:38] VITALS: TEMP 97.7
[2019-05-10 17:52] LABS: COLLECTION METHOD CLEAN CATCH
[2019-05-10 18:05] LABS: MUCOUS Present /lpf; PH 6 (5-8); URINE APPEARANCE Cloudy; URINE BACTERIA Rare /hpf; URINE BILIRUBIN Negative (NEGATIVE); URINE BLOOD Negative (NEGATIVE); URINE COLOR Amber; URINE GLUCOSE Negative (NEGATIVE); URINE KETONE Trace (NEGATIVE); URINE LEUKOCYTE ESTERASE Negative (NEGATIVE); URINE NITRATE Negative (NEGATIVE); URINE PROTEIN(semi-quant) Negative (NEGATIVE); URINE UROBILINOGEN Negative (NEGATIVE)
[2019-05-10 20:25] LABS: BASO # 0.1 (0.0-0.2); BASO % 0.7 % (0.0-2.0); EOS # 0.4 (0.0-0.7); GRAN # 5.3 (1.4-6.5); GRAN % 52.5 % (42.2-75.2); HEMATOCRIT 37.5 % (37.0-47.0); HEMOGLOBIN 12.2 g/dl (12.5-16.0); LYMPH # 3.7 (1.2-3.4); MEAN CELL VOLUME 93 fl (80.0-100.0); MEAN CORPUSCULAR HEMOGLOBIN 30 pg (27.0-31.0); MEAN CORPUSCULAR HGB CONC 33 g/dl (33.0-37.0); MEAN PLATELET VOLUME 10.5 fl (7.4-10.4); MONO # 0.6 (0.1-0.6); MONO % 5.5 % (1.7-9.3); PLATELET COUNT 294 K/mm3 (130-400); RED BLOOD COUNT 4.02 M/mm3 (4.10-5.30); REDCELL DISTRIBUTION WIDTH-CV 13.2 % (11.5-14.5)
[2019-05-10 20:36] LABS: CREATININE, serum 0.48 (0.52-1.25); POTASSIUM 3.7 mmol/L (3.4-5.0)
[2019-05-10 21:41] VITALS: BP 129/80; PULSE 66
== END 2019-05-10 21:42 | disposition home or self-care (01) ==
LOC: COL.ER 16:55
PROVIDERS: Emergency Medicine; Physician Assistant
DX: G43.909 Migraine, unspecified, not intractable, without status migrainosus (principal); Z79.51 Long term (current) use of inhaled steroids
CPT/HCPCS: J0595; J2550

== ENCOUNTER 2019-06-04 12:41 | Emergency (ER) | payer MEDICARE, MEDICAID ==
[~2019-06-04] VITALS: Ht 160 cm; Wt 109.1 kg
[2019-06-04 12:45] VITALS: BP 124/72; PULSE 98; TEMP 97.6
== END 2019-06-04 14:45 | disposition left against medical advice (07) ==
LOC: COL.ER 12:41
DX: G43.909 Migraine, unspecified, not intractable, without status migrainosus (principal); R11.0 Nausea

== ENCOUNTER 2019-06-07 10:59 | Emergency (ER) | payer MEDICARE, MEDICAID ==
[~2019-06-07] VITALS: Ht 160 cm; Wt 109.1 kg
[2019-06-07 11:13] VITALS: BP 115/58; TEMP 98.7
[2019-06-07] MEDS ORDERED: LYRICA 75MG CAP75 MG PO (14:08)
[2019-06-07] MEDS ORDERED: ZANAFLEX2 MG PO (14:09)
[2019-06-07 14:12] LABS: COLLECTION METHOD CLEAN CATCH
[2019-06-07 14:30] LABS: MUCOUS Present /lpf; PH 5 (5-8); URINE APPEARANCE Hazy; URINE BACTERIA None Seen /hpf; URINE BILIRUBIN Negative (NEGATIVE); URINE BLOOD 1+ (NEGATIVE); URINE COLOR Yellow; URINE GLUCOSE Negative (NEGATIVE); URINE KETONE Negative (NEGATIVE); URINE LEUKOCYTE ESTERASE Negative (NEGATIVE); URINE NITRATE Negative (NEGATIVE); URINE PROTEIN(semi-quant) Negative (NEGATIVE)
[2019-06-07 15:00] VITALS: PULSE 65
== END 2019-06-07 15:00 | disposition home or self-care (01) ==
LOC: COL.ER 10:59
PROVIDERS: Physician Assistant
DX: G43.909 Migraine, unspecified, not intractable, without status migrainosus (principal); R10.9 Unspecified abdominal pain; R31.9 Hematuria, unspecified; J45.909 Unspecified asthma, uncomplicated; Z98.84 Bariatric surgery status; Z79.51 Long term (current) use of inhaled steroids
CPT/HCPCS: J0595; J2550

== ENCOUNTER 2019-06-26 18:53 | Emergency (ER) | payer MEDICARE, MEDICAID ==
[~2019-06-26] VITALS: Ht 160 cm; Wt 109.1 kg
[~2019-06-26 18:53] MED LIST changes: +LYRICA 75MG CAP75 MG PO; +VYVANSE70 MG PO
[2019-06-26 19:16] VITALS: BP 105/55; TEMP 98.6
[2019-06-26 21:19] VITALS: PULSE 61
[2019-06-26] MEDS ORDERED: ZOFRAN ODT4 MG PO (21:19)
== END 2019-06-26 21:19 | disposition home or self-care (01) ==
LOC: COL.ER 18:53
DX: G43.909 Migraine, unspecified, not intractable, without status migrainosus (principal); J45.909 Unspecified asthma, uncomplicated; F41.9 Anxiety disorder, unspecified; F32.9 Major depressive disorder, single episode, unspecified; Z87.891 Personal history of nicotine dependence
CPT/HCPCS: J1200; J1885; J2765

== ENCOUNTER 2019-06-30 18:44 | Emergency (ER) | payer MEDICARE, MEDICAID ==
[~2019-06-30] VITALS: Ht 160 cm; Wt 109.1 kg
[2019-06-30 20:05] VITALS: TEMP 98.2
[2019-06-30 22:10] VITALS: BP 113/58; PULSE 82
== END 2019-06-30 22:35 | disposition home or self-care (01) ==
LOC: COL.ER 18:44
DX: M54.6 Pain in thoracic spine (principal); G89.29 Other chronic pain; G43.909 Migraine, unspecified, not intractable, without status migrainosus; J45.909 Unspecified asthma, uncomplicated; F32.9 Major depressive disorder, single episode, unspecified; F41.9 Anxiety disorder, unspecified
CPT/HCPCS: J1200; J2360; J2550

== ENCOUNTER 2019-07-22 05:55 | Emergency (ER) | payer MEDICARE, MEDICAID ==
[~2019-07-22] VITALS: Ht 160 cm; Wt 109.1 kg
[2019-07-22 06:06] VITALS: BP 119/63; PULSE 69; TEMP 97.6
== END 2019-07-22 08:18 | disposition home or self-care (01) ==
LOC: COL.ER 05:55
DX: S93.402A Sprain of unspecified ligament of left ankle, initial encounter (principal); Z79.51 Long term (current) use of inhaled steroids; W01.0XXA Fall on same level from slipping, tripping and stumbling without subsequent striking against object, initial encounter; X50.1XXA Overexertion from prolonged static or awkward postures, initial encounter; Y92.410 Unspecified street and highway as the place of occurrence of the external cause

== ENCOUNTER 2019-08-03 20:06 | Emergency (ER) | payer MEDICARE, MEDICAID ==
[~2019-08-03] VITALS: Ht 160 cm; Wt 109.1 kg
[2019-08-03 20:22] VITALS: TEMP 97.7
[2019-08-03 20:44] LABS: COLLECTION METHOD CLEAN CATCH
[2019-08-03 20:56] LABS: MUCOUS Present /lpf; PH 5 (5-8); URINE APPEARANCE Hazy; URINE BACTERIA Rare /hpf; URINE BILIRUBIN Negative (NEGATIVE); URINE BLOOD Negative (NEGATIVE); URINE COLOR Yellow; URINE GLUCOSE Negative (NEGATIVE); URINE KETONE Trace (NEGATIVE); URINE LEUKOCYTE ESTERASE Negative (NEGATIVE); URINE NITRATE Negative (NEGATIVE); URINE PROTEIN(semi-quant) Negative (NEGATIVE); URINE RBC 0-2 /hpf
[2019-08-03] MEDS ORDERED: FLEXERIL 1010 MG/TAB PO (21:08)
[2019-08-03 21:50] VITALS: BP 113/74; PULSE 67
== END 2019-08-03 22:00 | disposition home or self-care (01) ==
LOC: COL.ER 20:06
PROVIDERS: Emergency Medicine
DX: M54.6 Pain in thoracic spine (principal); Z79.51 Long term (current) use of inhaled steroids; Z98.84 Bariatric surgery status; Z98.890 Other specified postprocedural states

== ENCOUNTER → 2019-08-12 | Outpatient (CLI) | payer MEDICARE, MEDICAID ==
[~2019-08-12] VITALS: Ht 160 cm; Wt 113.2 kg
[~2019-08-12] MED LIST changes: +SAXENDA6 MG/ML SQ
[2019-08-12 11:31] VITALS: BP 100/72; PULSE 80
== END ==
LOC: LIGHT 11:11
DX: Z68.41 Body mass index [BMI] 40.0-44.9, adult (principal); E16.1 Other hypoglycemia; E78.5 Hyperlipidemia, unspecified
CPT/HCPCS: G0463

== ENCOUNTER 2019-10-03 19:11 | Emergency (ER) | payer MEDICARE, MEDICAID ==
[~2019-10-03] VITALS: Ht 160 cm; Wt 109.1 kg
[2019-10-03 19:19] VITALS: TEMP 97.9
[2019-10-03 19:43] LABS: BASO # 0.1 (0.0-0.2); BASO % 0.4 % (0.0-2.0); EOS # 0.4 (0.0-0.7); EOS % 2.7 % (0-4.0); GRAN # 8.9 (1.4-6.5); GRAN % 66.8 % (42.2-75.2); HEMATOCRIT 43.8 % (37.0-47.0); HEMOGLOBIN 14.4 g/dl (12.5-16.0); LYMPH # 3.3 (1.2-3.4); LYMPH % 24.4 % (20.0-51.0); MEAN CELL VOLUME 91 fl (80.0-100.0); MEAN CORPUSCULAR HEMOGLOBIN 30 pg (27.0-31.0); MEAN CORPUSCULAR HGB CONC 33 g/dl (33.0-37.0); MEAN PLATELET VOLUME 10.5 fl (7.4-10.4); MONO # 0.7 (0.1-0.6); MONO % 5.4 % (1.7-9.3); PLATELET COUNT 351 K/mm3 (130-400); REDCELL DISTRIBUTION WIDTH-CV 13.9 % (11.5-14.5)
[2019-10-03 19:46] LABS: COLLECTION METHOD CLEAN CATCH
[2019-10-03 19:53] LABS: MUCOUS Present /lpf; PH 5 (5-8); SQUAMOUS EPITHELIAL 0-2 /hpf; URINE APPEARANCE Clear; URINE BACTERIA None Seen /hpf; URINE BILIRUBIN Negative (NEGATIVE); URINE BLOOD 2+ (NEGATIVE); URINE COLOR Yellow; URINE GLUCOSE Negative (NEGATIVE); URINE KETONE Negative (NEGATIVE); URINE LEUKOCYTE ESTERASE Negative (NEGATIVE); URINE NITRATE Negative (NEGATIVE); URINE PROTEIN(semi-quant) Negative (NEGATIVE); URINE RBC 0-2 /hpf; URINE UROBILINOGEN Negative (NEGATIVE)
[2019-10-03 19:57] LABS: ALANINE AMINOTRANSFERASE 30 U/L (4-34); ALBUMIN 4.5 gm/dL (3.5-5.0); ALKALINE PHOSPHATASE 67 U/L (50-136); ANION GAP 9 mmol/L (7-16); AST,SGOT 32 U/L (15-37); BILIRUBIN,TOTAL 0.4 mg/dL (0.0-1.0); BLOOD UREA NITROGEN 13 mg/dL (7-17); CALCIUM 9.7 mg/dL (8.4-10.2); CARBON DIOXIDE 21 mmol/L (22-30); CHLORIDE 109 mmol/L (98-107); CREATININE, serum 0.44 (0.52-1.25); GLUCOSE 103 mg/dL (74-106); LIPASE 127 U/L (23-300); SODIUM 138 mmol/L (137-145); TOTAL PROTEIN 8.2 gm/dL (6.4-8.2)
[2019-10-03 20:01] LABS: C-REACTIVE PROTEIN < 0.5 mg/dL (0.0-0.9)
[2019-10-03] MEDS ORDERED: PHENERGAN 25 TA25 MG PO (21:49)
[2019-10-03 22:01] VITALS: BP 105/59; PULSE 69
== END 2019-10-03 22:05 | disposition home or self-care (01) ==
LOC: COL.ER 19:11
PROVIDERS: Emergency Medicine
DX: K56.7 Ileus, unspecified (principal); F41.9 Anxiety disorder, unspecified; F32.9 Major depressive disorder, single episode, unspecified; E66.9 Obesity, unspecified; G43.909 Migraine, unspecified, not intractable, without status migrainosus; Z79.899 Other long term (current) drug therapy; Z98.84 Bariatric surgery status; Z79.51 Long term (current) use of inhaled steroids; Z90.49 Acquired absence of other specified parts of digestive tract
CPT/HCPCS: J2270; J2405; J7030; Q9967

== ENCOUNTER 2019-11-07 20:58 | Emergency (ER) | payer MEDICARE, MEDICAID ==
[~2019-11-07] VITALS: Ht 160 cm; Wt 109.1 kg
[2019-11-07 21:04] VITALS: BP 104/72; TEMP 98.4
[2019-11-07 22:38] VITALS: PULSE 69
== END 2019-11-07 22:38 | disposition home or self-care (01) ==
LOC: COL.ER 20:58
DX: G43.909 Migraine, unspecified, not intractable, without status migrainosus (principal); F32.9 Major depressive disorder, single episode, unspecified; F41.9 Anxiety disorder, unspecified; Z98.84 Bariatric surgery status; Z90.49 Acquired absence of other specified parts of digestive tract; Z79.51 Long term (current) use of inhaled steroids
CPT/HCPCS: J0595; J2550

== ENCOUNTER 2019-11-12 17:49 | Emergency (ER) | payer MEDICARE, MEDICAID ==
[~2019-11-12] VITALS: Ht 160 cm; Wt 109.1 kg
[2019-11-12 18:00] VITALS: TEMP 98
[2019-11-12 19:20] VITALS: BP 104/45; PULSE 58
== END 2019-11-12 19:20 | disposition home or self-care (01) ==
LOC: COL.ER 17:49
DX: G43.909 Migraine, unspecified, not intractable, without status migrainosus (principal); J45.909 Unspecified asthma, uncomplicated; F41.9 Anxiety disorder, unspecified; F32.9 Major depressive disorder, single episode, unspecified; Z87.891 Personal history of nicotine dependence; Z88.6 Allergy status to analgesic agent
CPT/HCPCS: J1200; J2765

== ENCOUNTER 2019-11-24 20:36 | Emergency (ER) | payer MEDICARE, MEDICAID ==
[~2019-11-24] VITALS: Ht 160 cm; Wt 109.1 kg
[2019-11-24 20:41] VITALS: BP 110/73; TEMP 97.5
[2019-11-24 21:55] VITALS: PULSE 81
== END 2019-11-24 21:55 | disposition home or self-care (01) ==
LOC: COL.ER 20:36
DX: G43.909 Migraine, unspecified, not intractable, without status migrainosus (principal); F41.9 Anxiety disorder, unspecified; F32.9 Major depressive disorder, single episode, unspecified; J45.909 Unspecified asthma, uncomplicated; E66.9 Obesity, unspecified; Z87.891 Personal history of nicotine dependence; Z90.710 Acquired absence of both cervix and uterus; Z98.84 Bariatric surgery status; Z79.51 Long term (current) use of inhaled steroids; Z68.42 Body mass index [BMI] 45.0-49.9, adult
CPT/HCPCS: J0595; J2550

== ENCOUNTER 2019-12-06 20:49 | Emergency (ER) | payer MEDICARE, MEDICAID ==
[~2019-12-06] VITALS: Ht 160 cm; Wt 109.1 kg
[2019-12-06 21:06] VITALS: BP 98/68; TEMP 98.3
[2019-12-06] MEDS ORDERED: ZOFRAN ODT4 MG PO (23:07)
[2019-12-07 00:36] VITALS: PULSE 67
== END 2019-12-07 00:36 | disposition home or self-care (01) ==
LOC: COL.ER 20:49
DX: G43.709 Chronic migraine without aura, not intractable, without status migrainosus (principal); E66.01 Morbid (severe) obesity due to excess calories; J45.909 Unspecified asthma, uncomplicated; Z68.41 Body mass index [BMI] 40.0-44.9, adult; Z98.84 Bariatric surgery status; Z90.49 Acquired absence of other specified parts of digestive tract; Z88.6 Allergy status to analgesic agent
CPT/HCPCS: J0595; J2550

== ENCOUNTER 2019-12-15 20:09 | Emergency (ER) | payer MEDICARE, MEDICAID ==
[~2019-12-15] VITALS: Ht 160 cm; Wt 109.1 kg
[2019-12-15 20:13] VITALS: TEMP 98.7
[2019-12-15 20:22] LABS: COLLECTION METHOD CLEAN CATCH
[2019-12-15 20:47] LABS: MUCOUS Present /lpf; PH 5 (5-8); URINE APPEARANCE Cloudy; URINE BACTERIA Rare /hpf; URINE BILIRUBIN Negative (NEGATIVE); URINE BLOOD 3+ (NEGATIVE); URINE COLOR Yellow; URINE GLUCOSE Negative (NEGATIVE); URINE KETONE Trace (NEGATIVE); URINE LEUKOCYTE ESTERASE Negative (NEGATIVE); URINE NITRATE Negative (NEGATIVE); URINE PROTEIN(semi-quant) 1+ (NEGATIVE); URINE RBC >50 /hpf; URINE UROBILINOGEN Negative (NEGATIVE)
[2019-12-15 20:51] LABS: BASO # 0.1 (0.0-0.2); BASO % 0.7 % (0.0-2.0); EOS # 0.5 (0.0-0.7); EOS % 5.2 % (0-4.0); GRAN # 5.5 (1.4-6.5); GRAN % 53.2 % (42.2-75.2); HEMATOCRIT 42.6 % (37.0-47.0); HEMOGLOBIN 13.7 g/dl (12.5-16.0); LYMPH # 3.6 (1.2-3.4); LYMPH % 35.2 % (20.0-51.0); MEAN CELL VOLUME 94 fl (80.0-100.0); MEAN CORPUSCULAR HEMOGLOBIN 30 pg (27.0-31.0); MEAN CORPUSCULAR HGB CONC 32 g/dl (33.0-37.0); MONO # 0.6 (0.1-0.6); MONO % 5.4 % (1.7-9.3); PLATELET COUNT 312 K/mm3 (130-400); RED BLOOD COUNT 4.54 M/mm3 (4.10-5.30); REDCELL DISTRIBUTION WIDTH-CV 13.4 % (11.5-14.5)
[2019-12-15 21:23] LABS: ALBUMIN 4.3 gm/dL (3.5-5.0); BILIRUBIN,TOTAL 0.4 mg/dL (0.0-1.0); C-REACTIVE PROTEIN 0.7 mg/dL (0.0-0.9); CALCIUM 9.1 mg/dL (8.4-10.2); CREATININE, serum 0.56 (0.52-1.25); POTASSIUM 3.6 mmol/L (3.4-5.0); TOTAL PROTEIN 7.7 gm/dL (6.4-8.2)
[2019-12-15 22:45] VITALS: BP 112/58; PULSE 74
== END 2019-12-15 22:45 | disposition home or self-care (01) ==
LOC: COL.ER 20:09
PROVIDERS: Physician Assistant
DX: R10.12 Left upper quadrant pain (principal); R11.0 Nausea; K59.00 Constipation, unspecified; R63.0 Anorexia; F41.9 Anxiety disorder, unspecified; F32.9 Major depressive disorder, single episode, unspecified; G43.909 Migraine, unspecified, not intractable, without status migrainosus; E66.9 Obesity, unspecified; Z68.41 Body mass index [BMI] 40.0-44.9, adult; Z90.49 Acquired absence of other specified parts of digestive tract; Z98.84 Bariatric surgery status; Z88.6 Allergy status to analgesic agent
CPT/HCPCS: J1170; J2270; J2405; J7030; Q9967

== ENCOUNTER 2019-12-22 20:32 | Emergency (ER) | payer MEDICARE, MEDICAID ==
[~2019-12-22] VITALS: Ht 160 cm; Wt 109.1 kg
[2019-12-22 20:41] VITALS: BP 111/76; TEMP 97.7
[2019-12-22 21:21] LABS: BASO % 0.1 % (0.0-2.0); GRAN # 8.3 (1.4-6.5); GRAN % 73.5 % (42.2-75.2); HEMATOCRIT 38.8 % (37.0-47.0); HEMOGLOBIN 12.8 g/dl (12.5-16.0); LYMPH # 2.3 (1.2-3.4); LYMPH % 20.6 % (20.0-51.0); MEAN CELL VOLUME 91 fl (80.0-100.0); MEAN CORPUSCULAR HEMOGLOBIN 30 pg (27.0-31.0); MEAN CORPUSCULAR HGB CONC 33 g/dl (33.0-37.0); MEAN PLATELET VOLUME 10.9 fl (7.4-10.4); MONO # 0.6 (0.1-0.6); MONO % 5.5 % (1.7-9.3); PLATELET COUNT 333 K/mm3 (130-400); RED BLOOD COUNT 4.25 M/mm3 (4.10-5.30); REDCELL DISTRIBUTION WIDTH-CV 13.2 % (11.5-14.5)
[2019-12-22 21:33] LABS: ANION GAP 7 mmol/L (7-16); BLOOD UREA NITROGEN 21 mg/dL (7-17); CALCIUM 9.3 mg/dL (8.4-10.2); CARBON DIOXIDE 24 mmol/L (22-30); CHLORIDE 107 mmol/L (98-107); CREATININE, serum 0.49 (0.52-1.25); GLUCOSE 96 mg/dL (74-106); POTASSIUM 3.6 mmol/L (3.4-5.0); SODIUM 137 mmol/L (137-145)
[2019-12-22 21:36] LABS: C-REACTIVE PROTEIN < 0.5 mg/dL (0.0-0.9)
[2019-12-22 21:40] LABS: ERYTHROCYTE SEDIMENTATION RATE 13 mm/hr (0-20)
[2019-12-22 22:33] VITALS: PULSE 54
[2019-12-23] MEDS ORDERED: VYVANSE50 MG PO (10:23)
== END 2019-12-22 22:39 | disposition home or self-care (01) ==
LOC: COL.ER 20:32
PROVIDERS: Physician Assistant
DX: G44.209 Tension-type headache, unspecified, not intractable (principal); F32.9 Major depressive disorder, single episode, unspecified; F41.9 Anxiety disorder, unspecified; Z87.891 Personal history of nicotine dependence; Z98.84 Bariatric surgery status; Z86.69 Personal history of other diseases of the nervous system and sense organs; Z79.51 Long term (current) use of inhaled steroids
CPT/HCPCS: J1170; J2550

== ENCOUNTER 2020-01-03 20:50 | Emergency (ER) | payer MEDICARE, MEDICAID ==
[~2020-01-03] VITALS: Ht 160 cm; Wt 109.1 kg
[~2020-01-03 20:50] MED LIST changes: -VYVANSE70 MG PO
[2020-01-03 21:03] VITALS: TEMP 98.1
[2020-01-03 22:27] VITALS: BP 121/74; PULSE 70
== END 2020-01-03 22:30 | disposition home or self-care (01) ==
LOC: COL.ER 20:50
DX: G43.909 Migraine, unspecified, not intractable, without status migrainosus (principal)
CPT/HCPCS: J0780; J1170

== ENCOUNTER → 2020-01-06 | Outpatient (CLI) | payer MEDICARE, MEDICAID ==
[~2020-01-06] VITALS: Ht 160 cm; Wt 112.7 kg
[2020-01-06 15:02] VITALS: BP 106/70; PULSE 72
== END ==
LOC: LIGHT
DX: E66.01 Morbid (severe) obesity due to excess calories (principal); Z68.41 Body mass index [BMI] 40.0-44.9, adult; E16.1 Other hypoglycemia; E78.5 Hyperlipidemia, unspecified
CPT/HCPCS: G0463

== ENCOUNTER 2020-01-09 18:24 | Emergency (ER) | payer MEDICARE, MEDICAID ==
[~2020-01-09] VITALS: Ht 157.5 cm; Wt 109.1 kg
[2020-01-09 18:30] VITALS: BP 110/74; TEMP 98.1
[2020-01-09 20:08] VITALS: PULSE 88
== END 2020-01-09 20:08 | disposition home or self-care (01) ==
LOC: COL.ER 18:24
DX: G43.909 Migraine, unspecified, not intractable, without status migrainosus (principal); F32.9 Major depressive disorder, single episode, unspecified; F41.9 Anxiety disorder, unspecified; E66.9 Obesity, unspecified; J45.909 Unspecified asthma, uncomplicated; Z88.6 Allergy status to analgesic agent; Z98.84 Bariatric surgery status
CPT/HCPCS: J1200; J2550; J7040

== ENCOUNTER 2020-01-19 16:42 | Emergency (ER) | payer MEDICARE, MEDICAID ==
[~2020-01-19] VITALS: Ht 160 cm; Wt 109.1 kg
[2020-01-19 16:46] VITALS: BP 124/84; TEMP 98.5
[2020-01-19 18:04] VITALS: PULSE 81
== END 2020-01-19 18:03 | disposition home or self-care (01) ==
LOC: COL.ER 16:42
DX: R51 Headache (principal); J45.909 Unspecified asthma, uncomplicated; F32.9 Major depressive disorder, single episode, unspecified; F41.9 Anxiety disorder, unspecified; Z87.891 Personal history of nicotine dependence
CPT/HCPCS: J0595; J2405

== ENCOUNTER 2020-01-25 19:41 | Emergency (ER) | payer MEDICARE, MEDICAID ==
[~2020-01-25] VITALS: Ht 160 cm; Wt 109.1 kg
[2020-01-25 19:58] VITALS: TEMP 97.9
[2020-01-26 00:05] VITALS: BP 93/65; PULSE 71
== END 2020-01-26 00:17 | disposition home or self-care (01) ==
LOC: COL.ER 19:41
DX: G43.909 Migraine, unspecified, not intractable, without status migrainosus (principal); J45.909 Unspecified asthma, uncomplicated; F32.9 Major depressive disorder, single episode, unspecified; F41.9 Anxiety disorder, unspecified; Z87.891 Personal history of nicotine dependence
CPT/HCPCS: J1200; J2765

== ENCOUNTER 2020-02-02 20:55 | Emergency (ER) | payer MEDICARE, MEDICAID ==
[~2020-02-02] VITALS: Ht 160 cm; Wt 109.1 kg
[2020-02-02 21:03] VITALS: BP 119/78; PULSE 71; TEMP 98.5
[2020-02-02 21:43] LABS: BASO # 0.1 (0.0-0.2); BASO % 0.7 % (0.0-2.0); EOS # 0.4 (0.0-0.7); EOS % 3.6 % (0-4.0); GRAN # 7.1 (1.4-6.5); GRAN % 58.6 % (42.2-75.2); HEMOGLOBIN 13.2 g/dl (12.5-16.0); LYMPH # 3.9 (1.2-3.4); MEAN CELL VOLUME 91 fl (80.0-100.0); MEAN CORPUSCULAR HEMOGLOBIN 30 pg (27.0-31.0); MEAN CORPUSCULAR HGB CONC 33 g/dl (33.0-37.0); MEAN PLATELET VOLUME 10.7 fl (7.4-10.4); MONO # 0.6 (0.1-0.6); MONO % 4.8 % (1.7-9.3); PLATELET COUNT 322 K/mm3 (130-400); RED BLOOD COUNT 4.38 M/mm3 (4.10-5.30); REDCELL DISTRIBUTION WIDTH-CV 13.2 % (11.5-14.5)
[2020-02-02 21:54] LABS: ALANINE AMINOTRANSFERASE 23 U/L (4-34); ALBUMIN 4.5 gm/dL (3.5-5.0); ALKALINE PHOSPHATASE 67 U/L (50-136); ANION GAP 11 mmol/L (7-16); AST,SGOT 32 U/L (15-37); BILIRUBIN,TOTAL 0.3 mg/dL (0.0-1.0); BLOOD UREA NITROGEN 18 mg/dL (7-17); CALCIUM 9.3 mg/dL (8.4-10.2); CARBON DIOXIDE 19 mmol/L (22-30); CHLORIDE 109 mmol/L (98-107); GLUCOSE 84 mg/dL (74-106); LIPASE 80 U/L (23-300); POTASSIUM 3.5 mmol/L (3.4-5.0); SODIUM 139 mmol/L (137-145); TOTAL PROTEIN 7.8 gm/dL (6.4-8.2)
[2020-02-02 21:55] LABS: COLLECTION METHOD CLEAN CATCH
[2020-02-02 21:58] LABS: C-REACTIVE PROTEIN < 0.5 mg/dL (0.0-0.9)
[2020-02-02 22:03] LABS: MUCOUS Present /lpf; PH 5 (5-8); URINE APPEARANCE Hazy; URINE BACTERIA None Seen /hpf; URINE BILIRUBIN Negative (NEGATIVE); URINE BLOOD 3+ (NEGATIVE); URINE COLOR Yellow; URINE GLUCOSE Negative (NEGATIVE); URINE KETONE Negative (NEGATIVE); URINE LEUKOCYTE ESTERASE Negative (NEGATIVE); URINE NITRATE Negative (NEGATIVE); URINE PROTEIN(semi-quant) 1+ (NEGATIVE); URINE UROBILINOGEN Negative (NEGATIVE)
== END 2020-02-02 22:22 | disposition home or self-care (01) ==
LOC: COL.ER 20:55
PROVIDERS: Family Medicine
DX: R10.12 Left upper quadrant pain (principal); R11.10 Vomiting, unspecified; G43.909 Migraine, unspecified, not intractable, without status migrainosus
CPT/HCPCS: J1200; J1790; J7120

== ENCOUNTER 2020-02-21 05:26 | Emergency (ER) | payer MEDICARE, MEDICAID ==
[~2020-02-21] VITALS: Ht 160 cm; Wt 109.1 kg
[2020-02-21 05:30] VITALS: TEMP 97.7
[2020-02-21] MEDS ORDERED: NORCO 325 MG-51 TAB PO (07:25)
[2020-02-21] MEDS ORDERED: BACTRIM DS 8001 TAB PO (07:25)
[2020-02-21] MEDS ORDERED: CEPHALEXIN500 M1 PO (07:25)
[2020-02-21 07:44] VITALS: BP 110/56; PULSE 16
== END 2020-02-21 07:44 | disposition home or self-care (01) ==
LOC: COL.ER 05:26
DX: L02.211 Cutaneous abscess of abdominal wall (principal); Z79.51 Long term (current) use of inhaled steroids

== ENCOUNTER 2020-02-23 08:57 | Emergency (ER) | payer MEDICARE, MEDICAID ==
[~2020-02-23] VITALS: Ht 160 cm; Wt 109.1 kg
[~2020-02-23 08:57] MED LIST changes: +BACTRIM DS 8001 TAB PO
[2020-02-23 09:03] VITALS: BP 89/53; TEMP 97.8
[2020-02-23 11:29] VITALS: PULSE 77
== END 2020-02-23 11:29 | disposition home or self-care (01) ==
LOC: COL.ER 08:57
DX: L03.311 Cellulitis of abdominal wall (principal); T63.301A Toxic effect of unspecified spider venom, accidental (unintentional), initial encounter; F41.9 Anxiety disorder, unspecified; F32.9 Major depressive disorder, single episode, unspecified; Z98.84 Bariatric surgery status; Z90.49 Acquired absence of other specified parts of digestive tract; Z88.6 Allergy status to analgesic agent; Z88.8 Allergy status to other drugs, medicaments and biological substances

== ENCOUNTER → 2020-03-09 | Outpatient (CLI) | payer MEDICARE, MEDICAID ==
[~2020-03-09] VITALS: Ht 160 cm; Wt 98.2 kg
[~2020-03-09] MED LIST changes: +ATIVAN 0.50.5 MG/TAB PO; +PRIL40 PO; +VYVANSE70 MG PO
[2020-03-09 10:04] VITALS: BP 120/72; PULSE 80
== END ==
LOC: LIGHT 02-03 11:37
DX: E66.01 Morbid (severe) obesity due to excess calories (principal); Z68.41 Body mass index [BMI] 40.0-44.9, adult; E16.1 Other hypoglycemia; E78.5 Hyperlipidemia, unspecified
CPT/HCPCS: G0463

== ENCOUNTER 2020-05-02 09:00 | Outpatient (RCR) | payer MEDICARE, MEDICAID ==
[~2020-05-02 09:00] MED LIST changes: -ATIVAN 0.50.5 MG/TAB PO; -PRIL40 PO
[2020-05-15] MEDS ORDERED: FLEXERIL 1010 MG/TAB PO (22:42)
[2020-06-03] MEDS ORDERED: ATIVAN 0.50.5 MG/TAB PO (17:57)
[2020-06-03] MEDS ORDERED: FLONASEALLERGY NS (17:58)
[2020-06-03] MEDS ORDERED: PRIL40 PO (17:58)
== END 2020-06-05 | disposition home or self-care (01) ==
LOC: WSPT
DX: M21.372 Foot drop, left foot (principal)

== ENCOUNTER 2020-06-03 17:37 | Emergency (ER) | payer MEDICARE, MEDICAID ==
[~2020-06-03] VITALS: Ht 160 cm; Wt 109.1 kg
[2020-06-03 17:45] VITALS: TEMP 98.5
[2020-06-03] MEDS ORDERED: ATIVAN 0.50.5 MG/TAB PO (17:57)
[2020-06-03] MEDS ORDERED: FLONASEALLERGY NS (17:58)
[2020-06-03] MEDS ORDERED: PRIL40 PO (17:58)
[2020-06-03 18:54] VITALS: BP 146/62; PULSE 80
== END 2020-06-03 18:54 | disposition home or self-care (01) ==
LOC: COL.ER 17:37
DX: G43.909 Migraine, unspecified, not intractable, without status migrainosus (principal); J45.909 Unspecified asthma, uncomplicated; Z90.49 Acquired absence of other specified parts of digestive tract; Z98.84 Bariatric surgery status; Z79.1 Long term (current) use of non-steroidal anti-inflammatories (NSAID); Z79.51 Long term (current) use of inhaled steroids
CPT/HCPCS: J1200; J2765

== ENCOUNTER 2020-07-13 13:58 | Emergency (ER) | payer MEDICARE, MEDICAID ==
[~2020-07-13] VITALS: Ht 160 cm; Wt 109.1 kg
[~2020-07-13 13:58] MED LIST changes: +ATIVAN 0.50.5 MG/TAB PO; +PRIL40 PO
[2020-07-13 14:12] VITALS: BP 115/75; PULSE 70; TEMP 98.8
== END 2020-07-13 15:40 | disposition home or self-care (01) ==
LOC: COL.ER 13:58
DX: G43.909 Migraine, unspecified, not intractable, without status migrainosus (principal); J45.909 Unspecified asthma, uncomplicated; Z90.49 Acquired absence of other specified parts of digestive tract; Z98.84 Bariatric surgery status; Z88.6 Allergy status to analgesic agent; Z79.51 Long term (current) use of inhaled steroids
CPT/HCPCS: J1200; J2765

== ENCOUNTER 2020-07-24 21:38 | Emergency (ER) | payer MEDICARE, MEDICAID ==
[~2020-07-24] VITALS: Ht 160 cm; Wt 109.1 kg
[2020-07-24 23:17] VITALS: BP 146/101; TEMP 98.7
[2020-07-25 00:04] VITALS: PULSE 70
== END 2020-07-25 00:06 | disposition home or self-care (01) ==
LOC: COL.ER 21:38
DX: G43.909 Migraine, unspecified, not intractable, without status migrainosus (principal); J45.909 Unspecified asthma, uncomplicated; Z88.6 Allergy status to analgesic agent; Z87.891 Personal history of nicotine dependence
CPT/HCPCS: J1200; J2765

== ENCOUNTER 2020-08-24 11:31 | Emergency (ER) | payer MEDICARE, MEDICAID ==
[~2020-08-24] VITALS: Ht 160 cm; Wt 110.0 kg
[2020-08-24 11:42] VITALS: TEMP 98
[2020-08-24 12:25] LABS: COLLECTION METHOD CLEAN CATCH
[2020-08-24 12:35] LABS: MUCOUS Present /lpf; PH 6 (5-8); URINE APPEARANCE Hazy; URINE BACTERIA None Seen /hpf; URINE BILIRUBIN Negative (NEGATIVE); URINE BLOOD 1+ (NEGATIVE); URINE COLOR Yellow; URINE GLUCOSE Negative (NEGATIVE); URINE KETONE Negative (NEGATIVE); URINE LEUKOCYTE ESTERASE Negative (NEGATIVE); URINE NITRATE Negative (NEGATIVE); URINE PROTEIN(semi-quant) Negative (NEGATIVE); URINE UROBILINOGEN Negative (NEGATIVE)
[2020-08-24] MEDS ORDERED: ROBAXIN 75750 MG/TAB PO (13:03)
[2020-08-24 13:14] VITALS: BP 125/83; PULSE 70
== END 2020-08-24 13:14 | disposition home or self-care (01) ==
LOC: COL.ER 11:31
PROVIDERS: Emergency Medicine
DX: M54.16 Radiculopathy, lumbar region (principal); G43.909 Migraine, unspecified, not intractable, without status migrainosus; Z88.6 Allergy status to analgesic agent

== ENCOUNTER 2020-09-25 19:55 | Emergency (ER) | payer MEDICARE, MEDICAID ==
[~2020-09-25] VITALS: Ht 160 cm; Wt 108.2 kg
[2020-09-25 20:16] VITALS: TEMP 98.1
[2020-09-25 21:20] VITALS: BP 101/72; PULSE 66
== END 2020-09-25 21:21 | disposition home or self-care (01) ==
LOC: COL.ER 19:55
DX: G43.909 Migraine, unspecified, not intractable, without status migrainosus (principal); J45.909 Unspecified asthma, uncomplicated; Z98.84 Bariatric surgery status; Z88.6 Allergy status to analgesic agent; Z88.8 Allergy status to other drugs, medicaments and biological substances; Z79.51 Long term (current) use of inhaled steroids
CPT/HCPCS: J2550

== ENCOUNTER 2020-10-04 19:59 | Emergency (ER) | payer MEDICARE, MEDICAID ==
[~2020-10-04] VITALS: Ht 160 cm; Wt 108.2 kg
[2020-10-04 20:18] VITALS: TEMP 98.6
[2020-10-04] MEDS ORDERED: TRIAMCINOLONE AC0.13 TOP (21:20)
[2020-10-04 22:01] VITALS: BP 124/84; PULSE 63
== END 2020-10-04 22:03 | disposition home or self-care (01) ==
LOC: COL.ER 19:59
DX: G43.909 Migraine, unspecified, not intractable, without status migrainosus (principal); F32.9 Major depressive disorder, single episode, unspecified; F41.9 Anxiety disorder, unspecified; J45.909 Unspecified asthma, uncomplicated; Z88.6 Allergy status to analgesic agent
CPT/HCPCS: J0595; J2550

== ENCOUNTER 2020-10-26 19:35 | Emergency (ER) | payer MEDICARE, MEDICAID ==
[~2020-10-26] VITALS: Ht 160 cm; Wt 110.5 kg
[~2020-10-26 19:35] MED LIST changes: +TRIAMCINOLONE AC0.13 TOP
[2020-10-26 19:47] VITALS: TEMP 98.1
[2020-10-26 21:10] VITALS: BP 112/68; PULSE 70
== END 2020-10-26 21:11 | disposition home or self-care (01) ==
LOC: COL.ER 19:35
DX: G43.909 Migraine, unspecified, not intractable, without status migrainosus (principal); F32.9 Major depressive disorder, single episode, unspecified; F41.9 Anxiety disorder, unspecified; J45.909 Unspecified asthma, uncomplicated; Z88.6 Allergy status to analgesic agent; Z87.891 Personal history of nicotine dependence
CPT/HCPCS: J0595; J2550

== ENCOUNTER 2020-10-31 20:24 | Emergency (ER) | payer MEDICARE, MEDICAID ==
[~2020-10-31] VITALS: Ht 160 cm; Wt 109.1 kg
[2020-10-31 20:29] VITALS: TEMP 97.6
[2020-10-31 21:45] VITALS: BP 124/84; PULSE 71
== END 2020-10-31 21:45 | disposition home or self-care (01) ==
LOC: COL.ER 20:24
DX: M25.561 Pain in right knee (principal); M79.605 Pain in left leg; Z88.6 Allergy status to analgesic agent; Z87.891 Personal history of nicotine dependence; W10.9XXA Fall (on) (from) unspecified stairs and steps, initial encounter

== ENCOUNTER 2020-11-08 19:47 | Emergency (ER) | payer MEDICARE, MEDICAID ==
[~2020-11-08] VITALS: Ht 160 cm; Wt 111.4 kg
[2020-11-08 19:53] VITALS: TEMP 98.4
[2020-11-08] MEDS ORDERED: ULTRAM 50MG TAB50 MG PO (21:38)
[2020-11-08 21:54] VITALS: BP 132/77; PULSE 80
== END 2020-11-08 21:54 | disposition home or self-care (01) ==
LOC: COL.ER 19:47
DX: G43.911 Migraine, unspecified, intractable, with status migrainosus (principal); J45.909 Unspecified asthma, uncomplicated; Z88.6 Allergy status to analgesic agent; Z87.891 Personal history of nicotine dependence
CPT/HCPCS: J2060; J2765; J7030

== ENCOUNTER 2020-11-15 08:25 | Emergency (ER) | payer MEDICARE, MEDICAID ==
[~2020-11-15] VITALS: Ht 160 cm; Wt 111.4 kg
[~2020-11-15 08:25] MED LIST changes: -ROBAXIN 50500 MG/TAB PO
[2020-11-15 08:45] VITALS: TEMP 98.6
[2020-11-15] MEDS ORDERED: MEDROL 4MG DOSPA4 MG PO (09:35)
[2020-11-15 09:58] VITALS: BP 116/65; PULSE 62
== END 2020-11-15 09:58 | disposition home or self-care (01) ==
LOC: COL.ER 08:25
DX: M54.14 Radiculopathy, thoracic region (principal); G43.909 Migraine, unspecified, not intractable, without status migrainosus; E66.9 Obesity, unspecified; Z88.6 Allergy status to analgesic agent
CPT/HCPCS: J2360; J3010

== ENCOUNTER → 2020-11-15 | Outpatient (CLI) | payer MEDICARE, MEDICAID ==
[~2020-11-15] MED LIST changes: +ROBAXIN 50500 MG/TAB PO
== END ==
LOC: COL.RAD 11:13
DX: E04.1 Nontoxic single thyroid nodule (principal)

== ENCOUNTER 2020-11-22 16:40 | Emergency (ER) | payer MEDICARE, MEDICAID ==
[~2020-11-22] VITALS: Ht 160 cm; Wt 113.6 kg
[2020-11-22 16:43] VITALS: TEMP 98.4
[2020-11-22] MEDS ORDERED: ULTRAM 50MG TAB50 MG PO (17:14)
[2020-11-22] MEDS ORDERED: ROBAXIN 50500 MG/TAB PO (17:14)
[2020-11-22 17:35] VITALS: BP 129/70; PULSE 78
== END 2020-11-22 17:36 | disposition home or self-care (01) ==
LOC: COL.ER 16:40
DX: S46.811A Strain of other muscles, fascia and tendons at shoulder and upper arm level, right arm, initial encounter (principal); Z88.6 Allergy status to analgesic agent; X58.XXXA Exposure to other specified factors, initial encounter

== ENCOUNTER → 2020-12-11 | Emergency (ER) | payer MEDICARE, MEDICAID ==
[~2020-12-11] MED LIST changes: +ROBAXIN 50500 MG/TAB PO
== END ==
LOC: COL.ER 23:58
DX: G43.909 Migraine, unspecified, not intractable, without status migrainosus (principal)

== ENCOUNTER → 2020-12-11 | Emergency (ER) | payer MEDICARE, MEDICAID ==
[~2020-12-11] VITALS: Ht 160 cm; Wt 113.6 kg
[2020-12-11 18:08] VITALS: PULSE 80; TEMP 98.5
== END ==
LOC: COL.ER 17:50
DX: G43.909 Migraine, unspecified, not intractable, without status migrainosus (principal)

== ENCOUNTER 2020-12-17 14:05 | Emergency (ER) | payer OTHER ==
[~2020-12-17] VITALS: Ht 160 cm; Wt 113.6 kg
[2020-12-17 14:12] VITALS: TEMP 98.5
[2020-12-17] MEDS ORDERED: PERCOCET 325 MG1 TA2 PO (14:40)
[2020-12-17 15:13] VITALS: BP 99/65; PULSE 70
== END 2020-12-17 15:13 | disposition home or self-care (01) ==
LOC: COL.ER 14:05
DX: S16.1XXA Strain of muscle, fascia and tendon at neck level, initial encounter (principal); J45.909 Unspecified asthma, uncomplicated; G89.29 Other chronic pain; Z88.6 Allergy status to analgesic agent; Z79.899 Other long term (current) drug therapy; V43.92XA Unspecified car occupant injured in collision with other type car in traffic accident, initial encounter

== ENCOUNTER 2020-12-20 20:16 | Emergency (ER) | payer OTHER ==
[~2020-12-20] VITALS: Ht 160 cm; Wt 113.6 kg
[2020-12-20 20:34] VITALS: BP 125/71; PULSE 73; TEMP 98.1
== END 2020-12-20 23:30 | disposition left against medical advice (07) ==
LOC: COL.ER 20:16
DX: R51.9 Headache, unspecified (principal); M54.2 Cervicalgia; V89.2XXA Person injured in unspecified motor-vehicle accident, traffic, initial encounter

== ENCOUNTER 2021-01-31 06:12 | Emergency (ER) | payer MEDICARE, MEDICAID ==
[~2021-01-31] VITALS: Ht 160 cm; Wt 109.1 kg
[2021-01-31 06:31] VITALS: TEMP 98.1
[2021-01-31 06:58] LABS: BASO # 0.1 (0.0-0.2); BASO % 0.8 % (0.0-2.0); EOS # 0.5 (0.0-0.7); EOS % 6.6 % (0-4.0); GRAN # 3.9 (1.4-6.5); GRAN % 52.6 % (42.2-75.2); HEMATOCRIT 39.5 % (37.0-47.0); HEMOGLOBIN 13.1 g/dl (12.5-16.0); LYMPH # 2.5 (1.2-3.4); LYMPH % 34.1 % (20.0-51.0); MEAN CELL VOLUME 90 fl (80.0-100.0); MEAN CORPUSCULAR HEMOGLOBIN 30 pg (27.0-31.0); MEAN CORPUSCULAR HGB CONC 33 g/dl (33.0-37.0); MEAN PLATELET VOLUME 10.4 fl (7.4-10.4); MONO # 0.4 (0.1-0.6); MONO % 5.6 % (1.7-9.3); PLATELET COUNT 316 K/mm3 (130-400); REDCELL DISTRIBUTION WIDTH-CV 13.6 % (11.5-14.5)
[2021-01-31 07:09] LABS: ALBUMIN 3.9 gm/dL (3.5-5.0); BILIRUBIN,TOTAL 0.2 mg/dL (0.0-1.0); CALCIUM 8.9 mg/dL (8.4-10.2); CREATININE, serum 0.44 (0.52-1.25)
[2021-01-31 07:38] LABS: COLLECTION METHOD CLEAN CATCH
[2021-01-31 07:55] LABS: MUCOUS Present /lpf; PH 5 (5-8); URINE APPEARANCE Hazy; URINE BACTERIA None Seen /hpf; URINE BILIRUBIN Negative (NEGATIVE); URINE BLOOD 2+ (NEGATIVE); URINE COLOR Yellow; URINE GLUCOSE Negative (NEGATIVE); URINE KETONE Negative (NEGATIVE); URINE LEUKOCYTE ESTERASE Negative (NEGATIVE); URINE NITRATE Negative (NEGATIVE); URINE PROTEIN(semi-quant) 1+ (NEGATIVE)
[2021-01-31 08:38] VITALS: BP 120/73
[2021-01-31 09:10] VITALS: PULSE 53
== END 2021-01-31 09:10 | disposition home or self-care (01) ==
LOC: COL.ER 06:12
PROVIDERS: Emergency Medicine
DX: G43.909 Migraine, unspecified, not intractable, without status migrainosus (principal); G89.29 Other chronic pain; J45.909 Unspecified asthma, uncomplicated; Z20.822 Contact with and (suspected) exposure to COVID-19; Z32.02 Encounter for pregnancy test, result negative; Z88.6 Allergy status to analgesic agent; Z79.891 Long term (current) use of opiate analgesic; Z79.899 Other long term (current) drug therapy
CPT/HCPCS: J0595; J2550

== ENCOUNTER 2021-02-01 14:15 | Outpatient (RCR) | payer MEDICARE, MEDICAID | END 2021-04-01 | disposition home or self-care (01) | LOC: WSPT | DX: M54.6 Pain in thoracic spine (principal); G89.29 Other chronic pain; Z87.39 Personal history of other diseases of the musculoskeletal system and connective tissue ==

== ENCOUNTER 2021-05-16 23:48 | Emergency (ER) | payer MEDICARE, MEDICAID ==
[~2021-05-16] VITALS: Ht 160 cm; Wt 115.0 kg
[2021-05-16 23:53] VITALS: TEMP 98.1
[2021-05-17 00:52] VITALS: BP 117/68; PULSE 70
== END 2021-05-17 00:52 | disposition home or self-care (01) ==
LOC: COL.ER 23:48
DX: G43.909 Migraine, unspecified, not intractable, without status migrainosus (principal); J45.909 Unspecified asthma, uncomplicated; Z88.6 Allergy status to analgesic agent; Z79.891 Long term (current) use of opiate analgesic; Z79.899 Other long term (current) drug therapy

== ENCOUNTER 2021-05-22 12:58 | Emergency (ER) | payer MEDICARE, MEDICAID ==
[~2021-05-22] VITALS: Ht 160 cm; Wt 112.7 kg
[2021-05-22 13:20] VITALS: TEMP 98.3
[2021-05-22 14:15] VITALS: BP 127/68; PULSE 67
== END 2021-05-22 14:20 | disposition home or self-care (01) ==
LOC: COL.ER 12:58
DX: J06.9 Acute upper respiratory infection, unspecified (principal); G43.909 Migraine, unspecified, not intractable, without status migrainosus; F41.9 Anxiety disorder, unspecified; K21.9 Gastro-esophageal reflux disease without esophagitis; J45.909 Unspecified asthma, uncomplicated; Z20.822 Contact with and (suspected) exposure to COVID-19; Z87.891 Personal history of nicotine dependence; Z79.899 Other long term (current) drug therapy; Z79.891 Long term (current) use of opiate analgesic; Z79.51 Long term (current) use of inhaled steroids

== ENCOUNTER 2021-06-05 12:46 | Emergency (ER) | payer MEDICARE, MEDICAID ==
[~2021-06-05] VITALS: Ht 160 cm; Wt 109.1 kg
[2021-06-05 13:06] VITALS: BP 135/80; PULSE 77; TEMP 98.5
== END 2021-06-05 15:20 | disposition home or self-care (01) ==
LOC: COL.ER 12:46
DX: R51.9 Headache, unspecified (principal); J45.909 Unspecified asthma, uncomplicated; Z86.69 Personal history of other diseases of the nervous system and sense organs; Z88.6 Allergy status to analgesic agent; Z79.899 Other long term (current) drug therapy; Z79.51 Long term (current) use of inhaled steroids
CPT/HCPCS: J1790; J2360

== ENCOUNTER 2021-07-05 14:53 | Emergency (ER) | payer MEDICARE, MEDICAID ==
[~2021-07-05] VITALS: Ht 160 cm; Wt 111.4 kg
[2021-07-05 15:00] VITALS: TEMP 98.5
[2021-07-05 15:31] VITALS: BP 133/79; PULSE 79
[2021-07-05] MEDS ORDERED: TESSALON P100 MG/CAP PO (15:50)
== END 2021-07-05 15:54 | disposition home or self-care (01) ==
LOC: COL.ER 14:53
DX: U07.1 COVID-19 (principal); J45.909 Unspecified asthma, uncomplicated; G43.909 Migraine, unspecified, not intractable, without status migrainosus; F32.A Depression, unspecified; Z79.899 Other long term (current) drug therapy

== ENCOUNTER 2021-09-21 17:21 | Emergency (ER) | payer MEDICARE, MEDICAID ==
[~2021-09-21] VITALS: Ht 160 cm; Wt 113.6 kg
[2021-09-21 17:49] VITALS: TEMP 98.2
[2021-09-21 19:44] VITALS: BP 112/69; PULSE 63
== END 2021-09-21 19:44 | disposition home or self-care (01) ==
LOC: COL.ER 17:21
DX: G43.909 Migraine, unspecified, not intractable, without status migrainosus (principal); T22.011A Burn of unspecified degree of right forearm, initial encounter; Y27.8XXA Contact with other hot objects, undetermined intent, initial encounter
CPT/HCPCS: J1790; J2360

== ENCOUNTER 2021-10-23 12:53 | Emergency (ER) | payer OTHER, MEDICARE, MEDICAID ==
[~2021-10-23] VITALS: Ht 160 cm; Wt 113.6 kg
[2021-10-23 13:03] VITALS: BP 142/80; PULSE 76; TEMP 98
== END 2021-10-23 13:37 | disposition home or self-care (01) ==
LOC: COL.ER 12:53
DX: T75.4XXA Electrocution, initial encounter (principal); Z28.310 Unvaccinated for COVID-19

== ENCOUNTER 2021-12-17 19:17 | Emergency (ER) | payer MEDICARE, MEDICAID ==
[~2021-12-17] VITALS: Ht 160 cm; Wt 109.1 kg
[2021-12-17 19:39] VITALS: BP 153/84; TEMP 98.2
[2021-12-17] MEDS ORDERED: PEN-VEE K500 MG PO (20:42)
[2021-12-17 20:53] VITALS: PULSE 71
== END 2021-12-17 20:55 | disposition home or self-care (01) ==
LOC: COL.ER 19:17
DX: K04.7 Periapical abscess without sinus (principal); K03.81 Cracked tooth

== ENCOUNTER 2022-04-10 16:10 | Emergency (ER) | payer MEDICARE, MEDICAID ==
[~2022-04-10] VITALS: Ht 160 cm; Wt 105.5 kg
[~2022-04-10 16:10] MED LIST changes: +PEN-VEE K500 MG PO
[2022-04-10 16:29] VITALS: BP 131/83; PULSE 65; TEMP 97.8
== END 2022-04-10 18:12 | disposition home or self-care (01) ==
LOC: COL.ER 16:10
DX: R51.9 Headache, unspecified (principal); Z87.891 Personal history of nicotine dependence
CPT/HCPCS: J1790

== ENCOUNTER → 2022-06-25 | Outpatient (CLI) | payer MEDICARE, MEDICAID | LOC: MHCPAIN 04-23 14:29 | DX: G43.909 Migraine, unspecified, not intractable, without status migrainosus (principal); M47.812 Spondylosis without myelopathy or radiculopathy, cervical region; M54.12 Radiculopathy, cervical region | CPT/HCPCS: G0463 ==

== ENCOUNTER 2022-07-31 17:59 | Emergency (ER) | payer MEDICARE, MEDICAID ==
[~2022-07-31] VITALS: Ht 160 cm; Wt 107.3 kg
[2022-07-31 18:21] VITALS: BP 130/83; PULSE 71; TEMP 98.5
== END 2022-07-31 19:17 | disposition left against medical advice (07) ==
LOC: COL.ER 17:59
DX: R51.9 Headache, unspecified (principal); F17.200 Nicotine dependence, unspecified, uncomplicated; Z86.69 Personal history of other diseases of the nervous system and sense organs
CPT/HCPCS: J2550

== ENCOUNTER → 2023-03-21 | Outpatient (CLI) | payer MEDICARE | LOC: MHCPAIN 13:52 | DX: G43.709 Chronic migraine without aura, not intractable, without status migrainosus (principal) | CPT/HCPCS: J0585 ==

== ENCOUNTER → 2023-07-01 | Outpatient (CLI) | payer MEDICARE, MEDICAID | LOC: MHCPAIN 10:08 | DX: G43.909 Migraine, unspecified, not intractable, without status migrainosus (principal); M53.3 Sacrococcygeal disorders, not elsewhere classified; M54.50 Low back pain, unspecified; M51.36 Other intervertebral disc degeneration, lumbar region | CPT/HCPCS: G0463 ==

== ENCOUNTER → 2023-07-01 | Outpatient (CLI) | payer MEDICARE | LOC: MHCPAIN 10:08 | DX: M54.2 Cervicalgia (principal); M47.812 Spondylosis without myelopathy or radiculopathy, cervical region; M48.02 Spinal stenosis, cervical region | CPT/HCPCS: G0463 ==

== ENCOUNTER → 2023-08-12 | Outpatient (CLI) | payer MEDICARE, MEDICAID ==
[~2023-08-12] MED LIST changes: +NS 10 ML IV ONE
== END ==
LOC: MHCPAIN 07-24 17:01
DX: G43.909 Migraine, unspecified, not intractable, without status migrainosus (principal)
CPT/HCPCS: J0585

== ENCOUNTER → 2023-08-14 | Outpatient (CLI) | payer MEDICARE, MEDICAID ==
[~2023-08-14] MED LIST changes: +Atropine 1 MG/10 ML SYRINGE IV ONE; -NS 10 ML IV ONE; +ePHEDrine 50 MG/10 ML VIAL IV ONE
== END ==
LOC: MHCPAIN 07:27
DX: M47.812 Spondylosis without myelopathy or radiculopathy, cervical region (principal); M54.2 Cervicalgia
CPT/HCPCS: J0461; J0665

== ENCOUNTER → 2023-09-11 | Outpatient (CLI) | payer MEDICARE, MEDICAID ==
[~2023-09-11] MED LIST changes: -Atropine 1 MG/10 ML SYRINGE IV ONE; -ePHEDrine 50 MG/10 ML VIAL IV ONE
== END ==
LOC: MHCPAIN 07:59
DX: M47.812 Spondylosis without myelopathy or radiculopathy, cervical region (principal); M54.2 Cervicalgia; M25.511 Pain in right shoulder; M25.512 Pain in left shoulder
CPT/HCPCS: J0665

== ENCOUNTER 2023-10-12 06:57 | Emergency (ER) | payer MEDICARE, MEDICAID ==
[~2023-10-12] VITALS: Ht 160 cm; Wt 111.4 kg
[2023-10-12 07:44] VITALS: TEMP 98.1
[2023-10-12] MEDS ORDERED: NS 1,000 ML IV ONE ×2 (08:15→12:15)
[2023-10-12] MEDS ORDERED: Morphine 4 MG/ML VIAL IV PRN (08:15)
[2023-10-12] MEDS ORDERED: Ondansetron 4 MG/2 ML VIAL IV PRN (08:15)
[2023-10-12 08:59] LABS: BASO % 0.2 % (0.0-2.0); EOS # 0.1 K/mm3 (0.0-0.7); EOS % 0.5 % (0.0-4.0); GRAN # 6.2 K/mm3 (1.4-6.5); GRAN % 62.2 % (42.2-75.2); LYMPH % 30.7 % (20.0-51.0); MEAN CELL VOLUME 89 fl (80.0-100.0); MEAN CORPUSCULAR HGB CONC 34 g/dl (33.0-37.0); MEAN PLATELET VOLUME 9.9 fl (7.4-10.4); MONO # 0.6 K/mm3 (0.1-0.6); MONO % 5.6 % (1.7-9.3); PLATELET COUNT 327 K/mm3 (130-400); RED BLOOD COUNT 3.04 M/mm3 (4.10-5.30); REDCELL DISTRIBUTION WIDTH-CV 13.7 % (11.5-14.5)
[2023-10-12 09:03] LABS: HEMATOCRIT 26.9 % (37.0-47.0); MEAN CORPUSCULAR HEMOGLOBIN 30 pg (27-31)
[2023-10-12 09:04] LABS: ALBUMIN 2.7 g/dL (3.5-5.0); BILIRUBIN,TOTAL 0.2 mg/dL (0.2-1.2); CALCIUM 8.3 mg/dL (8.4-10.2); CREATININE, serum 0.61 mg/dL (0.57-1.11); POTASSIUM 3.5 mEq/L (3.5-4.5); TOTAL PROTEIN 5.3 g/dl (6.2-8.1)
[2023-10-12] MEDS ORDERED: NS 100 ML IV SCH (09:26)
[2023-10-12] MEDS ORDERED: Iohexol 300 - 100 ML VIAL IV ONE (09:26)
[2023-10-12] MEDS ORDERED: NS IV ONE (11:15)
[2023-10-12] MEDS ORDERED: PANTOPRAZOLE IV ONE (11:15)
[2023-10-12 12:30] VITALS: BP 103/73; PULSE 61
== END 2023-10-12 12:30 | disposition short-term general hospital (02) ==
LOC: COL.ER 06:57
PROVIDERS: Personal Emergency Response Attendant
DX: K92.2 Gastrointestinal hemorrhage, unspecified (principal); Z90.49 Acquired absence of other specified parts of digestive tract; Z98.84 Bariatric surgery status
CPT/HCPCS: C9113; J2270; J2405; J7030; Q9967

== ENCOUNTER → 2023-10-22 | Outpatient (CLI) | payer MEDICARE, MEDICAID | LOC: MHCPAIN 15:00 | DX: M53.3 Sacrococcygeal disorders, not elsewhere classified (principal); M54.2 Cervicalgia; G43.909 Migraine, unspecified, not intractable, without status migrainosus | CPT/HCPCS: G0463 ==

== ENCOUNTER → 2024-01-27 | Outpatient (CLI) | payer MEDICARE, MEDICAID | LOC: MHCPAIN 14:25 | DX: M54.2 Cervicalgia (principal); M79.18 Myalgia, other site; G43.909 Migraine, unspecified, not intractable, without status migrainosus | CPT/HCPCS: G0463 ==

== ENCOUNTER 2024-02-20 07:47 | Outpatient (RCR) | payer MEDICARE, MEDICAID ==
[2024-02-25] MEDS ORDERED: ROBAXIN 50500 MG/TAB PO (00:23)
== END 2024-03-01 | disposition home or self-care (01) ==
LOC: MKS.ESL.PT
DX: M54.2 Cervicalgia (principal)

== ENCOUNTER 2024-02-24 20:24 | Emergency (ER) | payer MEDICARE, MEDICAID ==
[~2024-02-24] VITALS: Ht 160 cm; Wt 115.9 kg
[2024-02-24 20:50] VITALS: TEMP 98
[2024-02-24] MEDS ORDERED: Lidocaine 4% Topical Patch TP ONE (22:30)
[2024-02-25] MEDS ORDERED: ROBAXIN 50500 MG/TAB PO (00:23)
[2024-02-25] MEDS ORDERED: Home HYDROcodone/Acetaminophen 5/325 MG #4 TABS/PACK PO ONE (00:30)
[2024-02-25 00:50] VITALS: BP 154/70; PULSE 82
== END 2024-02-25 00:51 | disposition home or self-care (01) ==
LOC: COL.ER 20:24
DX: S16.1XXA Strain of muscle, fascia and tendon at neck level, initial encounter (principal); W18.30XA Fall on same level, unspecified, initial encounter; Z87.891 Personal history of nicotine dependence
CPT/HCPCS: J2360